=== PATIENT | female | born 1950 | race Two or more races ===

== ENCOUNTER → 2019-11-24 | Outpatient (CLI) | payer OTHER ==
[2019-11-24 10:37] LABS: Basophils # (auto) 0.1 uL; Basophils % (auto) 1.2 % (0.0-2.0); Eosinophils # (auto) 0.1 uL; Eosinophils % (auto) 1.3 % (0.0-7.0); Hematocrit 48.5 % (36.0-46.0); Hemoglobin 16.8 g/dL (12.2-16.2); Lymphocytes # (auto) 1.5 uL; Lymphocytes % (auto) 29.5 % (10.0-50.0); Mean Corpuscular Hemoglobin 32.1 pg (28.0-32.0); Mean Corpuscular Hgb Conc. 34.8 g/dL (32.0-36.0); Mean Corpuscular Volume 92.4 fL (80.0-100.0); Monocytes # (auto) 0.5 uL; Monocytes % (auto) 10.1 % (0.0-12.0); Neutrophils % (auto) 57.9 % (37.0-80.0); Platelet Count (auto) 202 10^3/uL (140-450); Red Blood Cells 5.24 10^6/uL (4.0-5.20); Red Cell Distribution Width 13.1 % (11.8-14.3); White Blood Cell 5.1 10^3/uL (4.4-10.8)
[2019-11-24 10:45] LABS: Urine Bacteria MOD /hpf (None Seen); Urine Blood Negative /uL (Negative); Urine Mucus FEW (None Seen); Urine Specific Gravity 1.019 (1.001-1.035); Urine WBC 12 /hpf (0 - 5)
[2019-11-24 11:26] LABS: Albumin 4.3 g/dL (3.4-5.0); Calcium 9.3 mg/dL (8.5-10.1); Potassium 3.7 mmol/L (3.5-5.1)
[2019-11-24 11:30] LABS: BUN/Creatinine Ratio 13.3; Bilirubin, Total 0.8 mg/dL (0.2-1.0); Total Protein 8.4 g/dL (6.4-8.2)
== END | disposition home or self-care (01) ==
LOC: LAB 10:17
PROVIDERS: ATTEND Internal Medicine
DX: J44.9 Chronic obstructive pulmonary disease, unspecified (principal); R53.83 Other fatigue; J40 Bronchitis, not specified as acute or chronic; R94.5 Abnormal results of liver function studies
CPT/HCPCS: 36415; 80053; 80061; 81001; 82785; 83520; 84439; 84443; 85025; 85652; 86256

== ENCOUNTER → 2020-03-27 | Outpatient (CLI) | payer OTHER | END | disposition home or self-care (01) | LOC: LAB 14:36 | PROVIDERS: ATTEND Internal Medicine | DX: R91.8 Other nonspecific abnormal finding of lung field (principal) | CPT/HCPCS: 36415; 82565; 84520 ==

== ENCOUNTER → 2020-07-25 | Outpatient (CLI) | payer OTHER | END | disposition home or self-care (01) | LOC: LAB 12:21 | PROVIDERS: ATTEND Internal Medicine Pulmonary Disease | DX: J47.9 Bronchiectasis, uncomplicated (principal); R91.8 Other nonspecific abnormal finding of lung field | CPT/HCPCS: 87070; 87077; 87186; 87205 ==

== ENCOUNTER → 2020-08-22 | Outpatient (CLI) | payer OTHER ==
[2020-08-22 13:05] LABS: Basophils # (auto) 0.1 10 ^3/uL (0-0.2); Basophils % (auto) 0.8 % (0.0-2.0); Eosinophils # (auto) 0 10 ^3/uL (0-0.8); Eosinophils % (auto) 0.5 % (0.0-7.0); Hematocrit 46.2 % (36.0-46.0); Hemoglobin 15.7 g/dL (12.2-16.2); Lymphocytes # (auto) 2.8 10 ^3/uL (0.4-5.4); Lymphocytes % (auto) 33.2 % (10.0-50.0); Mean Corpuscular Hemoglobin 31.4 pg (28.0-32.0); Mean Corpuscular Hgb Conc. 33.9 g/dL (32.0-36.0); Mean Corpuscular Volume 92.5 fL (80.0-100.0); Monocytes # (auto) 0.7 10 ^3/uL (0-1.3); Monocytes % (auto) 8.4 % (0.0-12.0); Neutrophils # (auto) 4.8 10 ^3/uL (1.6-8.6); Neutrophils % (auto) 57.1 % (37.0-80.0); Nucleated Red Blood Cells % 0.1 %; Platelet Count (auto) 247 10^3/uL (140-450); Red Blood Cells 4.99 10^6/uL (4.0-5.20); Red Cell Distribution Width 13.4 % (11.8-14.3); White Blood Cell 8.4 10^3/uL (4.4-10.8)
== END | disposition home or self-care (01) ==
LOC: LAB 12:51
PROVIDERS: ATTEND Internal Medicine
DX: S61.451A Open bite of right hand, initial encounter (principal); W54.0XXA Bitten by dog, initial encounter; Y93.89 Activity, other specified; Y92.89 Other specified places as the place of occurrence of the external cause; Y99.8 Other external cause status
CPT/HCPCS: 36415; 85025; 85652; 87205

== ENCOUNTER → 2020-08-22 | Outpatient (CLI) | payer OTHER ==
[~2020-08-22] MED LIST: ALBUTEROL SULF 2.5 MG/0.5ML(0.5%) NEB SOLN ONE
== END | disposition home or self-care (01) ==
LOC: RT 11:47
PROVIDERS: ATTEND Internal Medicine Pulmonary Disease
DX: J47.9 Bronchiectasis, uncomplicated (principal)
CPT/HCPCS: 94060; 94727; 94729

== ENCOUNTER → 2021-11-13 | Outpatient (CLI) | payer OTHER | END | disposition home or self-care (01) | LOC: LAB 15:48 | PROVIDERS: ATTEND Internal Medicine | DX: Z12.11 Encounter for screening for malignant neoplasm of colon (principal) | CPT/HCPCS: 82270 ==

== ENCOUNTER → 2022-04-30 | Outpatient (CLI) | payer OTHER | END | disposition home or self-care (01) | LOC: LAB 12:03 | PROVIDERS: ATTEND Internal Medicine Pulmonary Disease | DX: J40 Bronchitis, not specified as acute or chronic (principal) | CPT/HCPCS: 87070; 87205 ==

== ENCOUNTER 2023-01-09 10:37 | Emergency (ER) | payer OTHER ==
[~2023-01-09] VITALS: Ht 157.5 cm; Wt 62.0 kg
[2023-01-09] MEDS ORDERED: methylPREDNISolone SOD SUCC 125 MG/2 ML VL IV ONE (11:30)
[2023-01-09] MEDS: ALBUTEROL MEDNEB 2.5 mg/3ml NEB ONE ×2 (11:33→12:14)
[2023-01-09 12:08] LABS: Basophils # (auto) 0 10 ^3/uL (0-0.2); Basophils % (auto) 0.2 % (0.0-2.0); Eosinophils # (auto) 0 10 ^3/uL (0-0.8); Eosinophils % (auto) 0.3 % (0.0-7.0); Hematocrit 42.8 % (36.0-46.0); Hemoglobin 14.2 g/dL (12.2-16.2); Lymphocytes # (auto) 0.8 10 ^3/uL (0.4-5.4); Lymphocytes % (auto) 4.9 % (10.0-50.0); Mean Corpuscular Hemoglobin 30.4 pg (28.0-32.0); Mean Corpuscular Hgb Conc. 33.1 g/dL (32.0-36.0); Mean Corpuscular Volume 91.6 fL (80.0-100.0); Monocytes # (auto) 1.3 10 ^3/uL (0-1.3); Monocytes % (auto) 8.5 % (0.0-12.0); Neutrophils # (auto) 13.6 10 ^3/uL (1.6-8.6); Neutrophils % (auto) 86.1 % (37.0-80.0); Red Blood Cells 4.67 10^6/uL (4.0-5.20); Red Cell Distribution Width 13.2 % (11.8-14.3); White Blood Cell 15.8 10^3/uL (4.4-10.8)
[2023-01-09] MEDS: IPRATROPIUM BROM 0.5 MG/2.5ML INH SOL NEB ONE ×2 (12:14→13:06)
[2023-01-09] MEDS: ALBUTEROL SULF 2.5 MG/0.5ML(0.5%) NEB SOLN NEB ONE ×2 (12:14→13:06)
[2023-01-09 12:20] LABS: Albumin 3.3 g/dL (3.4-5.0); Calcium 8.5 mg/dL (8.5-10.1); Magnesium 2.6 mg/dL (1.6-2.6); Potassium 4.2 mmol/L (3.5-5.1)
[2023-01-09 12:26] LABS: BUN/Creatinine Ratio 14.5; Total Protein 7.7 g/dL (6.4-8.2)
[2023-01-09] MEDS ORDERED: IOHEXOL 350 MG/ML 100ML IJ ONE (15:13)
[2023-01-09] MEDS ORDERED: AZIT250T8 PO (17:55)
[2023-01-09 18:04] VITALS: BP 132/80
== END 2023-01-09 18:08 | disposition home or self-care (01) ==
LOC: ER 10:37
DX: R42 Dizziness and giddiness (principal); J40 Bronchitis, not specified as acute or chronic; R91.1 Solitary pulmonary nodule; R78.9 Finding of unspecified substance, not normally found in blood; Z20.822 Contact with and (suspected) exposure to COVID-19
CPT/HCPCS: 36415; 71045; 71275; 80053; 83605; 83735; 84484; 85025; 85379; 87426; 93005; 94640; 96374; 99285; J2930; J7644; Q9967

== ENCOUNTER → 2023-01-14 | Outpatient (CLI) | payer OTHER ==
[~2023-01-14] MED LIST changes: -ALBUTEROL SULF 2.5 MG/0.5ML(0.5%) NEB SOLN ONE; +AZIT250T8 PO
[2023-01-14 13:53] LABS: Basophils # (auto) 0 10 ^3/uL (0-0.2); Basophils % (auto) 0.1 % (0.0-2.0); Eosinophils # (auto) 0.1 10 ^3/uL (0-0.8); Hematocrit 45.8 % (36.0-46.0); Hemoglobin 15.3 g/dL (12.2-16.2); Lymphocytes # (auto) 2.4 10 ^3/uL (0.4-5.4); Lymphocytes % (auto) 22.6 % (10.0-50.0); Mean Corpuscular Hemoglobin 30.4 pg (28.0-32.0); Mean Corpuscular Hgb Conc. 33.3 g/dL (32.0-36.0); Mean Corpuscular Volume 91.2 fL (80.0-100.0); Monocytes # (auto) 0.9 10 ^3/uL (0-1.3); Neutrophils % (auto) 67.3 % (37.0-80.0); Nucleated Red Blood Cells % 0.1 %; Red Blood Cells 5.02 10^6/uL (4.0-5.20); Red Cell Distribution Width 13.1 % (11.8-14.3); White Blood Cell 10.4 10^3/uL (4.4-10.8)
== END | disposition home or self-care (01) ==
LOC: LAB 13:18
PROVIDERS: ATTEND Internal Medicine
DX: J40 Bronchitis, not specified as acute or chronic (principal)
CPT/HCPCS: 36415; 82785; 85025

== ENCOUNTER → 2023-08-17 | Outpatient (CLI) | payer OTHER ==
[~2023-08-17] MED LIST changes: +AZIT-81 PO; -AZIT250T8 PO
[2023-08-17 10:41] LABS: Basophils # (auto) 0.1 10 ^3/uL (0-0.2); Basophils % (auto) 0.8 % (0.0-2.0); Eosinophils # (auto) 0.1 10 ^3/uL (0-0.8); Eosinophils % (auto) 0.9 % (0.0-7.0); Hematocrit 46.7 % (36.0-46.0); Hemoglobin 15.1 g/dL (12.2-16.2); Lymphocytes # (auto) 1.7 10 ^3/uL (0.4-5.4); Lymphocytes % (auto) 24.1 % (10.0-50.0); Mean Corpuscular Hemoglobin 28.9 pg (28.0-32.0); Mean Corpuscular Hgb Conc. 32.4 g/dL (32.0-36.0); Mean Corpuscular Volume 89.3 fL (80.0-100.0); Monocytes # (auto) 0.6 10 ^3/uL (0-1.3); Monocytes % (auto) 8.9 % (0.0-12.0); Neutrophils # (auto) 4.5 10 ^3/uL (1.6-8.6); Neutrophils % (auto) 65.3 % (37.0-80.0); Nucleated Red Blood Cells % 0.1 %; Red Blood Cells 5.23 10^6/uL (4.0-5.20); Red Cell Distribution Width 14.2 % (11.8-14.3); White Blood Cell 6.9 10^3/uL (4.4-10.8)
[2023-08-17 10:52] LABS: INR 1.06 (0.9-1.15); Prothrombin Time 11.1 sec (9.3-11.8)
[2023-08-17 11:35] LABS: Erythrocyte Sedimentation Rate 22 mm/hr (0-20)
[2023-08-17 11:52] LABS: % Iron Saturation 27.1 % (15-50); Alanine Aminotransferase 21 U/L (7-40); Albumin 4.7 g/dL (3.2-4.8); Alkaline Phosphatase 87 U/L (46-116); Aspartate Aminotransferase 32 U/L (13-40); BUN/Creatinine Ratio 10.9 (10.0-20.0); Blood Urea Nitrogen 10 mg/dL (9-23); Calcium 9.5 mg/dL (8.5-10.1); Carbon Dioxide 30 mmol/L (20-30); Cholesterol 141 mg/dL (< 200); Glucose 97 mg/dL (74-106); HDL Cholesterol 49 mg/dL (40-59); LDL Cholesterol 85 mg/dL (< 100); Triglycerides 112 mg/dL (< 150)
[2023-08-17 11:53] LABS: Bilirubin, Total 0.6 mg/dL (0.2-1.0); Total Protein 8.1 g/dL (5.7-8.2)
[2023-08-17 12:42] LABS: Anion Gap 5 (5-15); Chloride 105 mmol/L (98-107); Potassium 4.5 mmol/L (3.5-5.1); Sodium 140 mmol/L (136-145)
== END | disposition home or self-care (01) ==
LOC: LAB 09:57
PROVIDERS: ATTEND Internal Medicine
DX: Z12.11 Encounter for screening for malignant neoplasm of colon (principal); K70.30 Alcoholic cirrhosis of liver without ascites; I10 Essential (primary) hypertension
CPT/HCPCS: 36415; 80053; 80061; 82270; 83540; 83550; 84439; 84443; 85025; 85610; 85652; 86705; 86706; 86708; 86709; 86803; 87340

== ENCOUNTER 2024-01-21 09:00 | Inpatient (IN) | payer OTHER ==
[~2024-01-21] VITALS: Ht 157.5 cm; Wt 60.8 kg
[2024-01-21] MEDS: ALBUTEROL SULF 2.5 MG/0.5ML(0.5%) NEB SOLN HHN ONE (09:37)
[2024-01-21] MEDS: IPRATROPIUM BROM 0.5 MG/2.5ML INH SOL HHN ONE (09:37)
[2024-01-21 09:55] LABS: Basophils # (auto) 0 10 ^3/uL (0-0.2); Basophils % (auto) 0.1 % (0.0-2.0); Eosinophils # (auto) 0.1 10 ^3/uL (0-0.8); Eosinophils % (auto) 0.6 % (0.0-7.0); Hematocrit 44.7 % (36.0-46.0); Hemoglobin 14.7 g/dL (12.2-16.2); Lymphocytes # (auto) 0.7 10 ^3/uL (0.4-5.4); Lymphocytes % (auto) 3.2 % (10.0-50.0); Mean Corpuscular Hemoglobin 29.3 pg (28.0-32.0); Mean Corpuscular Hgb Conc. 32.8 g/dL (32.0-36.0); Mean Corpuscular Volume 89.2 fL (80.0-100.0); Monocytes # (auto) 0.9 10 ^3/uL (0-1.3); Monocytes % (auto) 4.1 % (0.0-12.0); Neutrophils # (auto) 20.9 10 ^3/uL (1.6-8.6); Nucleated Red Blood Cells % 0.1 %; Red Blood Cells 5.01 10^6/uL (4.0-5.20); Red Cell Distribution Width 13.9 % (11.8-14.3); White Blood Cell 22.7 10^3/uL (4.4-10.8)
[2024-01-21 10:01] LABS: Chloride 95 mmol/L (98-107); Sodium 129 mmol/L (136-145)
[2024-01-21] MEDS: methylPREDNISolone SOD SUCC 125 MG/2 ML VL IV ONE (10:01)
[2024-01-21 10:02] LABS: Anion Gap 7 (5-15); Calcium 9.3 mg/dL (8.5-10.1); Carbon Dioxide 27 mmol/L (20-30)
[2024-01-21] MEDS: AZITHROMYCIN 500MG/ 250ML 250 ML IV ONE (10:02)
[2024-01-21 10:07] LABS: BUN/Creatinine Ratio 19.4 (10.0-20.0); Blood Urea Nitrogen 19 mg/dL (9-23); Glucose 106 mg/dL (74-106)
[2024-01-21] MEDS: ALBUTEROL SULF 2.5 MG/0.5ML(0.5%) NEB SOLN NEB ONE ×2 (10:11→15:53)
[2024-01-21] MEDS ORDERED: HYDROcodone-ACET 5/325MG TAB PO PRN (10:30)
[2024-01-21] MEDS ORDERED: ONDANSETRON HCL 4 MG/2 ML VIAL IV PRN (10:30)
[2024-01-21 10:34] VITALS: PULSE 99; RESP 26; O2SAT 97
[2024-01-21] MEDS ORDERED: ALBUTEROL SULF 2.5 MG/0.5ML(0.5%) NEB SOLN NEB SCH (10:45)
[2024-01-21] MEDS ORDERED: IPRATROPIUM BROM 0.5 MG/2.5ML INH SOL NEB SCH (10:45)
[2024-01-21] MEDS: cefTRIAXone 1GM/50ML D5W 50 ML IV SCH (11:12)
[2024-01-21 11:34] LABS: Lactic Acid w/Reflex 2.2 mmol/L (0.4-2.0)
[2024-01-21] MEDS: SODIUM CHLORIDE 0.9% 500 ML IV ONE (11:43)
[2024-01-21 12:27] LABS: COVID19 ANTIGEN SOFIA FIA NEGATIVE (NEGATIVE); Rapid Influenza A Negative (Negative); Rapid Influenza B Negative (Negative)
[2024-01-21 13:03] LABS: Base Excess -6.5 mmol/L (-2.0-2.0)
[2024-01-21] MEDS: SODIUM CHLOR 0.9% PF (SALINE LOCK) 10ML VIAL/SYR IV SCH (14:11)
[2024-01-21] MEDS ORDERED: ACETYLCYSTEINE 10 %(100MG/ML) SOL 4ML NEB ONE (15:00)
[2024-01-21] MEDS: IPRATROPIUM BROM 0.5 MG/2.5ML INH SOL NEB ONE (15:53)
[2024-01-21] MEDS: IPRATROPIUM BROM 0.5 MG/2.5ML INH SOL NEB SCH (18:17)
[2024-01-21] MEDS: ALBUTEROL SULF 2.5 MG/0.5ML(0.5%) NEB SOLN NEB SCH (18:17)
[2024-01-21] MEDS: ACETYLCYSTEINE 10 %(100MG/ML) SOL 4ML NEB SCH (18:18)
[2024-01-21 18:19] VITALS: PULSE 94; RESP 32; O2SAT 96
[2024-01-21 18:32] VITALS: PULSE 102; RESP 32; O2SAT 98
[2024-01-21 19:45] VITALS: PULSE 100; RESP 24; O2SAT 96
[2024-01-21 21:14] VITALS: BP 125/72; PULSE 93; RESP 30; O2SAT 97
[2024-01-22] VITALS (9 sets, daily range): PULSE 91–104; RESP 21–38; O2SAT 89–98
[2024-01-22] MEDS: guaiFENesin-DM 100/10mg/5ml SYR PO PRN (01:13)
[2024-01-22 07:20] LABS: Base Excess -1.5 mmol/L (-2.0-2.0)
[2024-01-22] MEDS: methylPREDNISolone SOD SUCC 125 MG/2 ML VL IV ONE (10:43)
[2024-01-22] MEDS: AZITHROMYCIN 500MG/ 250ML 250 ML IV SCH (10:44)
[2024-01-22] MEDS ORDERED: ALBUTEROL SULF 2.5 MG/0.5ML(0.5%) NEB SOLN NEB PRN (10:45)
[2024-01-22] MEDS: SODIUM CHLORIDE 0.9% 1,000 ML IV SCH (10:45)
[2024-01-22] MEDS: methylPREDNISolone SOD SUCC 40 MG/ML VL IV SCH (12:00)
[2024-01-23] VITALS (12 sets, daily range): BP systolic 129–140; BP diastolic 75–76; PULSE 78–104; RESP 14–28; TEMP 97.9–98.2; O2SAT 92–100
[2024-01-23 06:09] LABS: Basophils # (auto) 0 10 ^3/uL (0-0.2); Eosinophils # (auto) 0 10 ^3/uL (0-0.8); Hematocrit 41.6 % (36.0-46.0); Hemoglobin 13.6 g/dL (12.2-16.2); Lymphocytes # (auto) 0.8 10 ^3/uL (0.4-5.4); Lymphocytes % (auto) 4.2 % (10.0-50.0); Mean Corpuscular Hemoglobin 29.3 pg (28.0-32.0); Mean Corpuscular Hgb Conc. 32.7 g/dL (32.0-36.0); Mean Corpuscular Volume 89.5 fL (80.0-100.0); Monocytes # (auto) 0.9 10 ^3/uL (0-1.3); Monocytes % (auto) 4.4 % (0.0-12.0); Neutrophils # (auto) 17.8 10 ^3/uL (1.6-8.6); Neutrophils % (auto) 91.4 % (37.0-80.0); Nucleated Red Blood Cells % 0.1 %; Red Blood Cells 4.65 10^6/uL (4.0-5.20); Red Cell Distribution Width 14.1 % (11.8-14.3); White Blood Cell 19.5 10^3/uL (4.4-10.8)
[2024-01-23 06:48] LABS: Alanine Aminotransferase 32 U/L (7-40); Alkaline Phosphatase 161 U/L (46-116); Anion Gap 8 (5-15); Aspartate Aminotransferase 52 U/L (13-40); BUN/Creatinine Ratio 24.2 (10.0-20.0); Blood Urea Nitrogen 15 mg/dL (9-23); Calcium 8.4 mg/dL (8.7-10.4); Carbon Dioxide 24 mmol/L (20-30); Chloride 104 mmol/L (98-107); Glucose 134 mg/dL (74-106); Potassium 4.3 mmol/L (3.5-5.1); Sodium 136 mmol/L (136-145)
[2024-01-23 06:49] LABS: Albumin 3.3 g/dL (3.2-4.8)
[2024-01-23 06:50] LABS: Bilirubin, Total 0.4 mg/dL (0.2-1.0); Total Protein 6.3 g/dL (5.7-8.2)
[2024-01-23] MEDS: ENOXAPARIN SOD 40 MG/0.4 ML SYRINGE SC SCH (09:31)
[2024-01-23] MEDS: LOSARTAN POTASSIUM 25 MG TAB PO SCH (10:44)
[2024-01-23] MEDS: SODIUM CHLORIDE 0.9% 1,000 ML IV SCH (11:54)
[2024-01-23] MEDS: IOHEXOL 350 MG/ML 100ML IJ ONE ×2 (12:59→15:45)
[2024-01-23 14:29] LABS: Urine Bacteria FEW /hpf (None Seen); Urine Blood Negative /uL (Negative); Urine Clarity Clear (Clear); Urine Color Yellow (Yellow); Urine Protein, UAD Negative (Negative); Urine Specific Gravity 1.019 (1.001-1.035); Urine Urobilinogen Normal (Negative); Urine WBC 2 /hpf (0 - 5)
[2024-01-23] MEDS: methylPREDNISolone SOD SUCC 40 MG/ML VL IV SCH (18:22)
[2024-01-24] VITALS (15 sets, daily range): BP systolic 135–157; BP diastolic 72–85; PULSE 73–101; RESP 17–28; TEMP 97.4–98.4; O2SAT 92–100
[2024-01-24 05:55] LABS: Hematocrit 39.8 % (36.0-46.0); Hemoglobin 13.1 g/dL (12.2-16.2); Mean Corpuscular Hemoglobin 29.1 pg (28.0-32.0); Mean Corpuscular Hgb Conc. 32.9 g/dL (32.0-36.0); Mean Corpuscular Volume 88.3 fL (80.0-100.0); Red Blood Cells 4.51 10^6/uL (4.0-5.20); Red Cell Distribution Width 14.4 % (11.8-14.3); White Blood Cell 17.2 10^3/uL (4.4-10.8)
[2024-01-24 06:12] LABS: Alanine Aminotransferase 40 U/L (7-40); Albumin 3.2 g/dL (3.2-4.8); Alkaline Phosphatase 140 U/L (46-116); Anion Gap 6 (5-15); Aspartate Aminotransferase 43 U/L (13-40); BUN/Creatinine Ratio 19.4 (10.0-20.0); Bilirubin, Total 0.4 mg/dL (0.2-1.0); Blood Urea Nitrogen 12 mg/dL (9-23); Calcium 8.6 mg/dL (8.5-10.1); Carbon Dioxide 27 mmol/L (20-30); Chloride 106 mmol/L (98-107); Glucose 152 mg/dL (74-106); Potassium 4.3 mmol/L (3.5-5.1); Sodium 139 mmol/L (136-145); Total Protein 6.1 g/dL (5.7-8.2)
[2024-01-24 06:34] LABS: Band Neutrophils % (manual) 0; Basophils % (manual) 0 (0.0-2.0); Blast Cells 0; Eosinophils % (manual) 0 (0-7); Metamyelocytes % 0; Myelocytes % 0; Promyelocytes % 0; Reactive Lymphocytes 0
[2024-01-24] MEDS: FAMOTIDINE 20 MG TAB PO ONE (10:39)
[2024-01-24] MEDS: FUROSEMIDE 20 MG/2 ML VIAL IV ONE (10:40)
[2024-01-24 10:41] LABS: Lymphocytes % (manual) 5 (10.0-50.0); Monocytes % (manual) 2 (0-12)
[2024-01-24 10:42] LABS: Platelet Estimate Adequate
[2024-01-24] MEDS: AZITHROMYCIN 250 MG TAB PO ONE (18:56)
[2024-01-24] MEDS: FUROSEMIDE 20 MG/2 ML VIAL IV SCH (19:00)
[2024-01-25] VITALS (19 sets, daily range): BP systolic 124–150; BP diastolic 73–84; PULSE 70–98; RESP 16–20; TEMP 97.8–98.3; O2SAT 91–100
[2024-01-25 06:25] LABS: Hematocrit 41.5 % (36.0-46.0); Hemoglobin 13.4 g/dL (12.2-16.2); Mean Corpuscular Hgb Conc. 32.4 g/dL (32.0-36.0); Mean Corpuscular Volume 89.6 fL (80.0-100.0); Red Blood Cells 4.63 10^6/uL (4.0-5.20); Red Cell Distribution Width 14.4 % (11.8-14.3); White Blood Cell 15.8 10^3/uL (4.4-10.8)
[2024-01-25 06:37] LABS: Chloride 103 mmol/L (98-107); Potassium 4.1 mmol/L (3.5-5.1); Sodium 137 mmol/L (136-145)
[2024-01-25 06:38] LABS: Anion Gap 4 (5-15); Calcium 8.1 mg/dL (8.7-10.4); Carbon Dioxide 30 mmol/L (20-30)
[2024-01-25 06:41] LABS: Band Neutrophils % (manual) 0; Basophils % (manual) 0 (0.0-2.0); Blast Cells 0; Eosinophils % (manual) 0 (0-7); Metamyelocytes % 0; Myelocytes % 0; Promyelocytes % 0; Reactive Lymphocytes 0
[2024-01-25 06:43] LABS: BUN/Creatinine Ratio 18.3 (10.0-20.0); Blood Urea Nitrogen 11 mg/dL (9-23); Glucose 160 mg/dL (74-106)
[2024-01-25 06:44] LABS: Magnesium 1.5 mg/dL (1.6-2.6)
[2024-01-25 07:52] LABS: Lymphocytes % (manual) 9 (10.0-50.0); Monocytes % (manual) 2 (0-12); Platelet Estimate Adequate
[2024-01-25] MEDS ORDERED: AZITHROMYCIN 250 MG TAB PO SCH (10:00)
[2024-01-25] MEDS: MAGNESIUM OXIDE 400 MG TAB PO SCH (11:03)
[2024-01-25] MEDS: AZITHROMYCIN 250 MG TAB PO SCH (11:04)
[2024-01-25] MEDS: FAMOTIDINE 20 MG TAB PO SCH (11:11)
[2024-01-25] MEDS: ACETAMINOPHEN 325 MG TAB PO PRN (22:31)
[2024-01-26] VITALS (12 sets, daily range): BP systolic 136–153; BP diastolic 58–92; PULSE 79–100; RESP 16–20; TEMP 97.7–98.6; O2SAT 92–99
[2024-01-26] MEDS ORDERED: FLUT250M2 INH (13:42)
[2024-01-26] MEDS ORDERED: ALB5IS NEB (13:42)
[2024-01-26] MEDS ORDERED: DOXY100C4 PO (13:42)
[2024-01-26] MEDS ORDERED: PRED20TA2 PO (13:42)
[2024-01-26] MEDS ORDERED: FURO1TAB33 PO (13:44)
== END 2024-01-26 16:40 | disposition home or self-care (01) | DRG 871 ==
LOC: ER 09:00 → TELE 10:30 → TELE-CENTR 01-23 15:57 → CENTRAL 01-25 03:40
PROVIDERS: ADMIT Internal Medicine; ATTEND Internal Medicine
DX: A41.9 Sepsis, unspecified organism (principal); I50.41 Acute combined systolic (congestive) and diastolic (congestive) heart failure; J15.69 Pneumonia due to other Gram-negative bacteria; J96.01 Acute respiratory failure with hypoxia; J44.1 Chronic obstructive pulmonary disease with (acute) exacerbation; E87.0 Hyperosmolality and hypernatremia; J44.0 Chronic obstructive pulmonary disease with (acute) lower respiratory infection; Z20.822 Contact with and (suspected) exposure to COVID-19; I11.0 Hypertensive heart disease with heart failure; R59.1 Generalized enlarged lymph nodes; Z83.3 Family history of diabetes mellitus; Z80.9 Family history of malignant neoplasm, unspecified; Z90.710 Acquired absence of both cervix and uterus
CPT/HCPCS: 36415; 36600; 71045; 71275; 80048; 80053; 81001; 82306; 82805; 83036; 83605; 83615; 83735; 83880; 85007; 85025; 85027; 85379; 87040; 87426; 87804; 93306; 93970; 94640; 94644; 97163; 99291; G0378

== ENCOUNTER → 2024-05-10 | Outpatient (CLI) | payer OTHER ==
[~2024-05-10] MED LIST changes: +ALB5IS NEB; -AZIT-81 PO; +DOXY100C4 PO; +FLUT250M2 INH; +FURO1TAB33 PO; +PRED20TA2 PO
== END | disposition home or self-care (01) ==
LOC: LAB 15:44
PROVIDERS: ATTEND Internal Medicine
DX: J18.9 Pneumonia, unspecified organism (principal)
CPT/HCPCS: 87070; 87205

== ENCOUNTER → 2024-09-26 | Outpatient (CLI) | payer OTHER ==
[2024-09-26 11:43] LABS: Basophils # (auto) 0.1 10 ^3/uL (0-0.2); Eosinophils # (auto) 0.1 10 ^3/uL (0-0.8); Hemoglobin 13.9 g/dL (12.2-16.2); Monocytes # (auto) 0.9 10 ^3/uL (0-1.3)
[2024-09-26 11:44] LABS: Basophils % (auto) 1.1 % (0.0-2.0); Eosinophils % (auto) 1.1 % (0.0-7.0); Hematocrit 41.7 % (36.0-46.0); Lymphocytes # (auto) 1.7 10 ^3/uL (0.4-5.4); Lymphocytes % (auto) 16.2 % (10.0-50.0); Mean Corpuscular Hemoglobin 30.1 pg (28.0-32.0); Mean Corpuscular Hgb Conc. 33.4 g/dL (32.0-36.0); Mean Corpuscular Volume 90.2 fL (80.0-100.0); Monocytes % (auto) 8.6 % (0.0-12.0); Neutrophils # (auto) 7.6 10 ^3/uL (1.6-8.6); Platelet Count (auto) 563 10^3/uL (140-450); Red Blood Cells 4.62 10^6/uL (4.0-5.20); Red Cell Distribution Width 14.2 % (11.8-14.3); White Blood Cell 10.4 10^3/uL (4.4-10.8)
[2024-09-26 11:59] LABS: INR 1.07 (0.9-1.15); Prothrombin Time 11.3 sec (9.3-11.8)
[2024-09-26 12:18] LABS: Erythrocyte Sedimentation Rate 56 mm/hr (0-20)
[2024-09-26 12:23] LABS: Alanine Aminotransferase 13 U/L (7-40); Alkaline Phosphatase 117 U/L (46-116); Anion Gap 9 (5-15); BUN/Creatinine Ratio 8.8 (10.0-20.0); Blood Urea Nitrogen 7 mg/dL (9-23); Calcium 9.9 mg/dL (8.7-10.4); Carbon Dioxide 26 mmol/L (20-31); Chloride 103 mmol/L (98-107); Glucose 113 mg/dL (74-106); LDL Cholesterol 54 mg/dL (< 100); Potassium 3.4 mmol/L (3.5-5.1); Sodium 138 mmol/L (136-145); Triglycerides 126 mg/dL (< 150)
[2024-09-26 12:24] LABS: Albumin 4.3 g/dL (3.2-4.8); Aspartate Aminotransferase 25 U/L (13-40); Bilirubin, Total 0.4 mg/dL (0.2-1.0); Cholesterol 116 mg/dL (< 200); HDL Cholesterol 46 mg/dL (40-59)
== END | disposition home or self-care (01) ==
LOC: LAB 11:23
PROVIDERS: ATTEND Internal Medicine
DX: I10 Essential (primary) hypertension (principal); K70.0 Alcoholic fatty liver; M81.0 Age-related osteoporosis without current pathological fracture
CPT/HCPCS: 36415; 80053; 80061; 82306; 83735; 84439; 84443; 85025; 85610; 85652

== ENCOUNTER → 2024-10-03 | Outpatient (CLI) | payer OTHER ==
[2024-10-03 16:09] LABS: Urine Bacteria None Seen /hpf (None Seen)
[2024-10-03 16:34] LABS: Urine Blood Negative /uL (Negative); Urine Clarity Clear (Clear); Urine Color Light-Yellow (Yellow); Urine Mucus FEW (None Seen); Urine Protein, UAD Negative (Negative); Urine Specific Gravity 1.023 (1.001-1.035); Urine Urobilinogen Normal (Negative); Urine WBC 1 /hpf (0 - 5); Urine pH 5.5 (5.0-9.0)
== END | disposition home or self-care (01) ==
LOC: LAB 15:37
PROVIDERS: ATTEND Internal Medicine
DX: I10 Essential (primary) hypertension (principal); K70.0 Alcoholic fatty liver
CPT/HCPCS: 81001

== ENCOUNTER → 2024-12-21 | Outpatient (CLI) | payer OTHER ==
[2024-12-21 13:44] LABS: Basophils # (auto) 0.1 10 ^3/uL (0-0.2); Neutrophils # (auto) 12.6 10 ^3/uL (1.6-8.6); White Blood Cell 15.3 10^3/uL (4.4-10.8)
[2024-12-21 13:48] LABS: Basophils % (auto) 0.5 % (0.0-2.0); Eosinophils # (auto) 0.1 10 ^3/uL (0-0.8); Eosinophils % (auto) 0.3 % (0.0-7.0); Hematocrit 39.6 % (36.0-46.0); Hemoglobin 12.9 g/dL (12.2-16.2); Lymphocytes # (auto) 1.6 10 ^3/uL (0.4-5.4); Lymphocytes % (auto) 10.5 % (10.0-50.0); Mean Corpuscular Hemoglobin 28.5 pg (28.0-32.0); Mean Corpuscular Hgb Conc. 32.6 g/dL (32.0-36.0); Mean Corpuscular Volume 87.4 fL (80.0-100.0); Monocytes # (auto) 0.9 10 ^3/uL (0-1.3); Monocytes % (auto) 6.1 % (0.0-12.0); Neutrophils % (auto) 82.6 % (37.0-80.0); Platelet Count (auto) 546 10^3/uL (140-450); Red Blood Cells 4.53 10^6/uL (4.0-5.20); Red Cell Distribution Width 14.3 % (11.8-14.3)
[2024-12-21 13:54] LABS: Albumin 4.1 g/dL (3.2-4.8); Alkaline Phosphatase 110 U/L (46-116); Anion Gap 7 (5-15); Aspartate Aminotransferase 18 U/L (13-40); BUN/Creatinine Ratio 9.7 (10.0-20.0); Bilirubin, Total 0.3 mg/dL (0.2-1.0); Calcium 9.7 mg/dL (8.7-10.4); Carbon Dioxide 26 mmol/L (20-31); Chloride 101 mmol/L (98-107); Glucose 144 mg/dL (74-106); Potassium 3.8 mmol/L (3.5-5.1); Sodium 134 mmol/L (136-145); Total Protein 7.6 g/dL (5.7-8.2)
[2024-12-21 13:55] LABS: Alanine Aminotransferase < 9 U/L (7-40); Blood Urea Nitrogen 9 mg/dL (9-23)
== END | disposition home or self-care (01) ==
LOC: LAB 13:18
PROVIDERS: ATTEND Internal Medicine
DX: D75.839 Thrombocytosis, unspecified (principal)
CPT/HCPCS: 36415; 80053; 83540; 85025

== ENCOUNTER 2025-02-14 14:02 | Inpatient (IN) | payer OTHER ==
[~2025-02-14] VITALS: Ht 157.5 cm; Wt 50.9 kg
--- NOTE | 2025-02-14 14:45 | ED.PDOC ---
SOB-HPI HPI Comments 74y F who presents to the ED for chief complaint of shortness of breath. Pt states she has been having cough, congestion, with associated greenish sputum for the past 2 days. Pt states she saw her PCP a few days ago and states she was told she has bronchitis and placed on antibiotics. Pt states she is continuing to have exacerbation of her symptoms despite being on medications. Pt in the ED, otherwise denies chest pain, fever, chills, headache, dizziness, or any associated symptoms. Pt otherwise denies any other symptoms at this time. Chief Complaint: Shortness of Breath Time Seen by MD: 14:42 Primary Care Provider: ROGER Reviewed notes: Nurses Notes, Medications, Allergies Information Source: Patient Mode of Arrival: Ambulatory Brought in by: spouse Severity: Moderate Timing: Hours Duration: Since onset Context: At Rest PE Risk Factors: None History of: Other (bronchitis) Prehospital treatment: Treatment (abx) Modifying Factors: Exertion Associated Signs and Symptoms: Cough If cough with SOB: Green Past Medical History PAST MEDICAL HISTORY: COPD, HTN Surgical History: Hysterectomy, Tubal Ligation CABLE INSTALLATION MANAGER History: No Pertinent CABLE INSTALLATION MANAGER History Family History Family History: Family hx of DM, Family hx of Cancer Social History Smoker: Non-Smoker Alcohol: Occasionally Drugs: Denies Drug Use Lives In: Home Constitutional: denies: chills, diaphoresis, fatigue, fever, malaise, sweats, weakness, others EENTM: reports: nose congestion; denies: blurred vision, double vision, ear bleeding, ear discharge, ear drainage, ear pain, ear ringing, eye pain, eye redness, hearing loss, mouth pain, mouth swelling, nasal discharge, nose bleeding, nose pain, photophobia, tearing, throat pain, throat swelling, voice changes, others Respiratory: reports: cough, shortness of breath; denies: hemoptysis, ortho pnea, SOB at rest, SOB with excertion, stridor, wheezing, others Cardiovascular: denies: chest pain, dizzy spells, diaphoresis, Dyspnea on exertion, edema, irregular heart beat, left arm pain, lightheadedness, palpitations, PND, syncope, others Gastrointestinal: denies: abdomen distended, abdominal pain, blood streaked bowels, constipated, diarrhea, dysphagia, difficulty swallowing, hematemesis, melena, nausea, poor appetite, poor fluid intake, rectal bleeding, rectal pain, vomiting, others Genitourinary: denies: abnormal vagina bleeding, burning, dyspareunia, dysuria, flank pain, frequency, hematuria, incontinence, pain, , vagina discharge, urgency, others Neurological: denies: dizziness, fainting, headache, left sided numbness, left sided weakness, numbness, paresthesia, pre-existing deficit, right sided numbness, right sided weakness, seizure, speech problems, tingling, tremors, weakness, others Musculoskeletal: denies: back pain, gout, joint pain, joint swelling, muscle pain, muscle stiffness, neck pain, others Integumetry: denies: bruises, change in color, change in hair/nails, dryness, laceration, lesions, lumps, rash, wounds, others Allergic/Immunocompromised: denies: Difficulty Healing, Frequent Infections, Hives, Itching, others Hematologic/Lymphatic: denies: anemia, blood clots, easy bleeding, easy bruising, swollen glands, others Endocrine: denies: excessive hunger, excessive sweating, excessive thirst, excessive urination, flushing, intolerance to cold, intolerance to heat, unexplained weight gain, unexplained weight loss, others Psychiatric: denies: anxiety, bipolar disorder, depression, hopeless, panic disorder, schizophrenia, sleepless, suicidal, others All Other Systems: Reviewed and Negative Physical Exam General Appearance: Moderate Distress HEENT: Normal ENT Inspection, Pharynx Normal, TMs Normal Neck: Full Range of Motion, Non-Tender, Normal, Normal Inspection Respiratory: Chest Non-Tender, Decreased Breath Sounds, No Accessory Muscle Use, Respiratory Distress, Rhonchi, Wheezing Cardiovascular: No Edema, No JVD, No Murmur, No Gallop, Normal Peripheral Pulses, Regular Rate/Rhythm Breast Exam: Deferred Gastrointestinal: No Organomegaly, Non Tender, No Pulsatile Mass, Normal Bowel Sounds, Soft Genitalia: Deferred Pelvic: Deferred Rectal: Deferred Extremities: No calf tenderness, Normal capillary refill, Normal inspection, Normal range of motion, Non-tender, No pedal edema Musculoskeletal : Apperance: Normal Neurologic: Alert, sewing machine mechanic II-XII nml as Tested, No Motor Deficits, Normal Affect, Normal Mood, No Sensory Deficits Cerebellar Function: Normal Reflexes: Normal Skin: Dry, Normal Color, Warm Lymphatic: No Adenopathy EKG EKG : Pulse Rate (adult): 120 [place]: Normal Block: None ST: Nonsp Was a procedure done? Was a procedure done?: No Differential Dx Differential Diagnosis: Bronchitis, COPD, Pneumonia, Respiratory Distress, Pharyngitis, URI Comments Influenza A and B, COVID X-Ray, Labs, Meds, VS Vital Signs Date Time Temp Pulse Resp B/P (MAP) Pulse Ox O2 Delivery O2 Flow Rate FiO2 02/14/25 17:01 120 02/14/25 15:20 22 94 Nasal Cannula* 2 28 02/14/25 14:20 98.4 124 8 125/95 (105) 85 98.4 Lab Test 02/14/25 14:36 Range/Units White Blood Count 28.5 H 4.4-10.8 10^3/uL Red Blood Count 4.83 4.0-5.20 10^6/uL Hemoglobin 13.0 12.2-16.2 g/dL Hematocrit 40.0 36.0-46.0 % Mean Corpuscular Volume 82.9 80.0-100.0 fL Mean Corpuscular Hemoglobin 26.9 L 28.0-32.0 pg Mean Corpuscular Hemoglobin Concent 32.4 32.0-36.0 g/dL Red Cell Distribution Width 15.1 H 11.8-14.3 % Platelet Count 602 H 140-450 10^3/uL Mean Platelet Volume 8.0 6.9-10.8 fL Neutrophils (%) (Auto) 91.5 H 37.0-80.0 % Lymphocytes (%) (Auto) 3.8 L 10.0-50.0 % Monocytes (%) (Auto) 4.4 0.0-12.0 % Eosinophils (%) (Auto) 0.1 0.0-7.0 % Basophils (%) (Auto) 0.2 0.0-2.0 % Neutrophils # (Auto) 26.1 H 1.6-8.6 10 ^3/uL Lymphocytes # (Auto) 1.1 0.4-5.4 10 ^3/uL Monocytes # (Auto) 1.2 0-1.3 10 ^3/uL Eosinophils # (Auto) 0 0-0.8 10 ^3/uL Basophils # (Auto) 0.1 0-0.2 10 ^3/uL Nucleated Red Blood Cells 0.0 % Sodium Level 134 L 136-145 mmol/L Potassium Level 4.4 3.5-5.1 mmol/L Chloride Level 100 98-107 mmol/L Carbon Dioxide Level 25 20-31 mmol/L Anion Gap 9 5-15 Blood Urea Nitrogen 11 9-23 mg/dL Creatinine 0.79 0.550-1.02 mg/dL Glomerular Filtration Rate Calc 77 >90 mL/min BUN/Creatinine Ratio 13.9 10.0-20.0 Serum Glucose 109 H 74-106 mg/dL Calcium Level 9.9 8.7-10.4 mg/dL B-Type Natriuretic Peptide 71.03 0-100 pg/mL Current Medications Medications (Trade) Dose Ordered Sig/Benito Route Start Time Stop Time Status Last Admin Methylprednisolone Sodium Succinate (Solu Medrol) 125 mg ONCE ONCE IV 02/14/25 14:30 02/14/25 14:31 DC 02/14/25 16:23 Ipratropium [place] (Atrovent Medneb) 1 mg ONCE ONCE HHN 02/14/25 14:30 02/14/25 14:31 DC 02/14/25 15:20 Albuterol (Ventolin Medneb) 10 mg ONCE ONCE HHN 02/14/25 14:30 02/14/25 14:31 DC 02/14/25 15:20 CHEST RADIOGRAPH IMPRESSION: Chronic fibrotic changes with probable superimposed multifocal airspace disease. The patient was given Solu-Medrol 125 mg IV push The patient was started on a continuous breathing treatment of albuterol and Atrovent. The BNP is within normal limits The CBC shows an elevated white blood cell count of 28.5 The rest of the CBC and chemistry panel are within normal limits The patient's COVID test and influenza test are pending The patient was being admitted at this time. Images Reviewed?: Images reviewed and evaluated by me Time of 1ST Reevaluation: 15:15 Reevaluation 1ST: Unchanged Patient Education/Counseling: Diagnosis, Treatment, Prognosis Family Education/Counseling: Diagnosis, Treatment, Prognosis Additional Information -Reviewed patient's previous visit(s): - The following tests were ordered, and results were reviewed by me: cbc, bnp, chest x-ray, bmp, covid, influenza a and b - Additional information was gathered from interviewing the following independent Historian: patient - I reviewed and agreed with the following test results read by other provider: radiologist - I discussed treatments and results with medical personnel and: patient Comprehensive systems review obtained and negative except for what is stated in the HPI. Departure 1 Departure Time of Disposition: 17:11 Impression: Primary Impression: Acute respiratory failure Qualified Codes: J96.00 - Acute respiratory failure, unspecified whether with hypoxia or hypercapnia Disposition: ADMITTED INPATIENT Admit to: Med Surg Condition: Fair Critical Care Note Critical Care Time?: No Stability Stability form required: No Heart Score Heart Score: Heart Score Response (Comments) Value History Slightly Suspicious 0 EKG Repolarization Disturb 1 Age >65 2 Risk Factors 1 or 2 risk factors 1 Troponin N/A 0 Total 4 I personally scribed for ROBI ASTORGA MD ([email or web address]) on 02/14/25 at 14:45. Electronically submitted by Jessica Buckner ([email or web address]). I personally scribed for ROBI ASTORGA MD ([email or web address]) on 02/14/25 at 16:42. Electronically submitted by Jessica OTOOLE). ROBI ASTORGA MD Feb 14, 2025 14:45
[2025-02-14 14:59] LABS: Eosinophils # (auto) 0 10 ^3/uL (0-0.8); Lymphocytes # (auto) 1.1 10 ^3/uL (0.4-5.4); Monocytes # (auto) 1.2 10 ^3/uL (0-1.3)
[2025-02-14 15:03] LABS: Basophils # (auto) 0.1 10 ^3/uL (0-0.2); Basophils % (auto) 0.2 % (0.0-2.0); Eosinophils % (auto) 0.1 % (0.0-7.0); Lymphocytes % (auto) 3.8 % (10.0-50.0); Mean Corpuscular Hemoglobin 26.9 pg (28.0-32.0); Mean Corpuscular Hgb Conc. 32.4 g/dL (32.0-36.0); Mean Corpuscular Volume 82.9 fL (80.0-100.0); Monocytes % (auto) 4.4 % (0.0-12.0); Neutrophils # (auto) 26.1 10 ^3/uL (1.6-8.6); Neutrophils % (auto) 91.5 % (37.0-80.0); Platelet Count (auto) 602 10^3/uL (140-450); Red Blood Cells 4.83 10^6/uL (4.0-5.20); Red Cell Distribution Width 15.1 % (11.8-14.3); White Blood Cell 28.5 10^3/uL (4.4-10.8)
[2025-02-14 15:08] LABS: Chloride 100 mmol/L (98-107); Potassium 4.4 mmol/L (3.5-5.1)
--- NOTE | 2025-02-14 15:08 | DVH ---
CHEST RADIOGRAPH Indication: sob Technique: Frontal and lateral view of the chest was obtained Comparison: None FINDINGS: Lines and Tubes: None Lungs: Chronic fibrotic changes with probable superimposed multifocal airspace disease. Pleura: No effusion. No pneumothorax. Cardiomediastinal contours: Unremarkable Bones: Unremarkable IMPRESSION: Chronic fibrotic changes with probable superimposed multifocal airspace disease.
[2025-02-14 15:09] LABS: Anion Gap 9 (5-15); Calcium 9.9 mg/dL (8.7-10.4); Carbon Dioxide 25 mmol/L (20-31)
[2025-02-14 15:15] LABS: BUN/Creatinine Ratio 13.9 (10.0-20.0); Blood Urea Nitrogen 11 mg/dL (9-23); Glucose 109 mg/dL (74-106); Sodium 134 mmol/L (136-145)
[2025-02-14] MEDS: IPRATROPIUM BROM 0.5 MG/2.5ML INH SOL HHN ONE (15:20)
[2025-02-14] MEDS: ALBUTEROL SULF 2.5 MG/0.5ML(0.5%) NEB SOLN HHN ONE (15:20)
[2025-02-14] MEDS: methylPREDNISolone SOD SUCC 125 MG/2 ML VL IV ONE (16:23)
[2025-02-14] MEDS: cefTRIAXone 1GM/50ML D5W 50 ML IV ONE (17:00)
[2025-02-14] MEDS ORDERED: ONDANSETRON HCL 4 MG/2 ML VIAL IV PRN (19:15)
[2025-02-14 19:51] LABS: COVID19 ANTIGEN SOFIA FIA NEGATIVE (NEGATIVE); Rapid Influenza A Negative (Negative); Rapid Influenza B Negative (Negative)
[2025-02-14 20:45] VITALS: O2SAT 96
[2025-02-14 21:05] VITALS: BP 113/71; PULSE 103; RESP 18; TEMP 98.2; O2SAT 96
[2025-02-14 21:44] VITALS: BP 112/65; PULSE 95; RESP 17; TEMP 98; O2SAT 95; O2SAT 98
--- NOTE | 2025-02-14 22:15 | DVHHP2 ---
History of Present Illness Reason for Visit: Shortness for breath History of Present Illness 74 year old female presents for evaluation of shortness for breath. Patient was seen by her primary care provider who advised her to present to the emergency department to rule out possible pneumonia. Patient has been coughing over the past three days with yellow sputum and shortness for breath. She also reports intermittent chills. Denies chest pain or palpitations. No other acute complaints reported. Past Medical History Hypertension and COPD Past Surgical History Tubal ligation and hysterectomy Family History Noncontributory Smoke: No ALCOHOL: occassional Drugs: None Lives: with Family Review of Systems Review of Systems Review of systems are currently negative otherwise addressed in HPI. Allergies: Coded Allergies: NO KNOWN ALLERGIES (Unverified , 01/21/24) Medications Current Medications Medications Dose Ordered Sig/Benito Route Start Time Stop Time Status Last Admin Dose Admin Albuterol 2.5 mg Q6HPRN PRN NEB 02/14/25 19:15 Ipratropium [place] 0.5 mg Q6HPRN PRN NEB 02/14/25 19:15 Ceftriaxone Sodium 50 ml @ 100 mls/hr DAILY@09 IV 02/15/25 09:00 Azithromycin 250 ml @ 125 mls/hr DAILY IV 02/15/25 10:00 Methylprednisolone Sodium Succinate 40 mg BID IV 02/14/25 22:00 Ondansetron HCl 4 mg Q4HP PRN IV 02/14/25 19:15 Enoxaparin Sodium 40 mg DAILY SC 02/15/25 10:00 Acetaminophen 650 mg Q6HP PRN PO 02/14/25 19:15 Exam Vital Signs Vital Signs Date Time Temp Pulse Resp B/P (MAP) Pulse Ox O2 Delivery O2 Flow Rate FiO2 02/14/25 21:28 97.8 105 20 127/86 (100) 96 97.8 02/14/25 21:19 Nasal Cannula* 3 32 Exam Gen: 74-year-old female in mild distress Skin: Warm, dry, normal color and texture, no rash. HEENT: Normocephalic atraumatic, mucous membranes moist and pink. Neck: Cervical and supraclavicular nodes normal without enlargement, trachea is midline, thyroid gland is normal without masses. Pulmonary: Bilateral rhonchi Cardiac: Regular rate and rhythm. No murmur Abdomen: Soft, nontender, nondistended, bowel sounds present all 4 quadrants, no guarding, no rigidity, no organomegaly. Extremities: No cyanosis, clubbing, no edema Neuro: Cranial nerves II through XII grossly intact, normal affect and speech, no focal motor deficits. Labs/Xrays ORDERING PHYSICIAN: ROBI ASTORGA MD PROCEDURE(s): CXR2 - CHEST TWO VIEWS ROUTINE REASON: sob ORDER NUMBER(s): [id number], ACCESSION NUMBER(s): [id number] CHEST RADIOGRAPH Indication: sob Technique: Frontal and lateral view of the chest was obtained Comparison: None FINDINGS: Lines and Tubes: None Lungs: Chronic fibrotic changes with probable superimposed multifocal airspace disease. Pleura: No effusion. No pneumothorax. Cardiomediastinal contours: Unremarkable Bones: Unremarkable IMPRESSION: Chronic fibrotic changes with probable superimposed multifocal airspace disease. Labs Test 02/14/25 18:20 02/14/25 14:36 Range/Units Influenza Type A Antigen Negative Negative Influenza Type B Antigen Negative Negative SARS-CoV-2 Antigen (Rapid) Negative NEGATIVE White Blood Count 28.5 H 4.4-10.8 10^3/uL Red Blood Count 4.83 4.0-5.20 10^6/uL Hemoglobin 13.0 12.2-16.2 g/dL Hematocrit 40.0 36.0-46.0 % Mean Corpuscular Volume 82.9 80.0-100.0 fL Mean Corpuscular Hemoglobin 26.9 L 28.0-32.0 pg Mean Corpuscular Hemoglobin Concent 32.4 32.0-36.0 g/dL Red Cell Distribution Width 15.1 H 11.8-14.3 % Platelet Count 602 H 140-450 10^3/uL Mean Platelet Volume 8.0 6.9-10.8 fL Neutrophils (%) (Auto) 91.5 H 37.0-80.0 % Lymphocytes (%) (Auto) 3.8 L 10.0-50.0 % Monocytes (%) (Auto) 4.4 0.0-12.0 % Eosinophils (%) (Auto) 0.1 0.0-7.0 % Basophils (%) (Auto) 0.2 0.0-2.0 % Neutrophils # (Auto) 26.1 H 1.6-8.6 10 ^3/uL Lymphocytes # (Auto) 1.1 0.4-5.4 10 ^3/uL Monocytes # (Auto) 1.2 0-1.3 10 ^3/uL Eosinophils # (Auto) 0 0-0.8 10 ^3/uL Basophils # (Auto) 0.1 0-0.2 10 ^3/uL Nucleated Red Blood Cells 0.0 % Sodium Level 134 L 136-145 mmol/L Potassium Level 4.4 3.5-5.1 mmol/L Chloride Level 100 98-107 mmol/L Carbon Dioxide Level 25 20-31 mmol/L Anion Gap 9 5-15 Blood Urea Nitrogen 11 9-23 mg/dL Creatinine 0.79 0.550-1.02 mg/dL Glomerular Filtration Rate Calc 77 >90 mL/min BUN/Creatinine Ratio 13.9 10.0-20.0 Serum Glucose 109 H 74-106 mg/dL Calcium Level 9.9 8.7-10.4 mg/dL B-Type Natriuretic Peptide 71.03 0-100 pg/mL Assessment/Plan Assessment/Plan Assessment Multifocal pneumonia Hypertension COPD Leukocytosis Plan Admit the patient to Med surge to the hospitalist Rocephin/azithromycin Med nebs Resume home medications Continue treatment per orders. Plan discussed with: Patient My Orders Orders - SHERWIN ALAS [facility] Procedure Category Date Status Time Blood Culture HERMAN 02/14/25 In Process 19:08 Albuterol Medneb PHA 02/14/25 In Process (Ventolin Medneb) 19:15 Ipratropium Medneb PHA 02/14/25 In Process (Atrovent Medneb) 19:15 Ceftriaxone 1gm/50ml PHA 02/15/25 In Process D5w (Rocephin) 09:00 Azithromycin 500mg/ PHA 02/15/25 In Process 250ml (Zithromax 50 10:00 Methylprednisolone PHA 02/14/25 In Process Sod Succ (Solu Medrol 22:00 Basic Metabolic Panel LAB 02/15/25 Verified 04:00 Admit ADMIT 02/14/25 Transmitted 19:08 Ondansetron Hcl PHA 02/14/25 In Process (Zofran) 19:15 Enoxaparin Sodium PHA 02/15/25 In Process (Lovenox) 10:00 Complete Blood Count LAB 02/15/25 Verified 04:00 Condition: Stable ANGELA 02/14/25 In Process 19:08 Acetaminophen Tablet PHA 02/14/25 In Process (Tylenol Tablet) 19:15 Bedrest With Bathroom ANGELA 02/14/25 In Process Privileg 19:08 Date of Service: Feb 14, 2025 Billing Provider: SHERWIN ALAS Common Visit Codes: [id number] INP/OBS CARE (HIGH) SHERWIN ALAS Feb 14, 2025 22:15
[2025-02-14] MEDS: methylPREDNISolone SOD SUCC 40 MG/ML VL IV SCH (22:32)
[2025-02-14] MEDS ORDERED: FLUT1AER3 IN (22:47)
[2025-02-15] VITALS (12 sets, daily range): BP systolic 101–110; BP diastolic 64–72; PULSE 92–115; RESP 18–20; TEMP 97.8–98.1; O2SAT 93–99
[2025-02-15 06:42] LABS: Hemoglobin 11.5 g/dL (12.2-16.2); Mean Corpuscular Hemoglobin 26.5 pg (28.0-32.0); Mean Corpuscular Hgb Conc. 31.7 g/dL (32.0-36.0); Mean Corpuscular Volume 83.7 fL (80.0-100.0); Red Cell Distribution Width 15.3 % (11.8-14.3)
[2025-02-15 06:45] LABS: Hematocrit 36.3 % (36.0-46.0); Platelet Count (auto) 519 10^3/uL (140-450); Red Blood Cells 4.34 10^6/uL (4.0-5.20); White Blood Cell 21.7 10^3/uL (4.4-10.8)
[2025-02-15 06:53] LABS: Chloride 102 mmol/L (98-107); Potassium 4.4 mmol/L (3.5-5.1)
[2025-02-15 06:54] LABS: Anion Gap 7 (5-15); Carbon Dioxide 24 mmol/L (20-31)
[2025-02-15 06:55] LABS: Calcium 9.9 mg/dL (8.7-10.4)
[2025-02-15 06:58] LABS: Band Neutrophils % (manual) 0; Basophils % (manual) 0 (0.0-2.0); Blast Cells 0; Eosinophils % (manual) 0 (0-7); Metamyelocytes % 0; Myelocytes % 0; Promyelocytes % 0; Reactive Lymphocytes 0
[2025-02-15 07:00] LABS: BUN/Creatinine Ratio 22.2 (10.0-20.0); Blood Urea Nitrogen 14 mg/dL (9-23)
[2025-02-15 07:04] LABS: Glucose 155 mg/dL (74-106); Sodium 133 mmol/L (136-145)
[2025-02-15 08:04] LABS: Lymphocytes % (manual) 5 (10.0-50.0); Monocytes % (manual) 2 (0-12)
[2025-02-15 08:05] LABS: Anisocytosis Slight; Hypochromia Slight; Platelet Estimate Increased
[2025-02-15] MEDS: cefTRIAXone 1GM/50ML D5W 50 ML IV SCH (10:41)
[2025-02-15] MEDS: ENOXAPARIN SOD 40 MG/0.4 ML SYRINGE SC SCH (10:42)
[2025-02-15] MEDS: AZITHROMYCIN 500MG/ 250ML 250 ML IV SCH (10:42)
[2025-02-15] MEDS: ALBUTEROL SULF 2.5 MG/0.5ML(0.5%) NEB SOLN NEB PRN (10:43)
[2025-02-15] MEDS: IPRATROPIUM BROM 0.5 MG/2.5ML INH SOL NEB PRN (10:43)
--- NOTE | 2025-02-15 11:08 | ECG ---
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
--- NOTE | 2025-02-15 18:26 | DVHPN2 ---
Subjective Seen and examined at bedside. On 2L oxygen will get CT CHEST. Changes from previous H/P or p: No Changes Objective Vitals Vital Signs Date Time Temp Pulse Resp B/P (MAP) Pulse Ox O2 Delivery O2 Flow Rate FiO2 02/15/25 17:27 98.0 92 18 101/66 (78) 96 98.0 02/15/25 10:43 Nasal Cannula* 2 28 Intake/Output Intake and Output 02/15/25 07:00 Intake Total 350 ml Balance 350 ml Intake Oral 250 ml IV Total 100 ml # Voids 1 General Appearance: Alert, Oriented X3, Cooperative, mild distress HEENT: Atraumatic Neck: Carotid [place] Lungs: Other (whjeezing) Cardiovascular: Regular rate, Normal S1, Normal S2 Abdomen: Normal bowel sounds, Soft Rectal: Deferred Psych/Mental Status: Mental status NL Medications Current Medications Medications Dose Ordered Sig/Benito Route Start Time Stop Time Status Last Admin Dose Admin Albuterol 2.5 mg Q6HPRN PRN NEB 02/14/25 19:15 02/15/25 10:43 2.5 MG Ipratropium [place] 0.5 mg Q6HPRN PRN NEB 02/14/25 19:15 02/15/25 10:43 0.5 MG Ceftriaxone Sodium 50 ml @ 100 mls/hr DAILY@09 IV 02/15/25 09:00 02/15/25 10:41 100 MLS/HR Azithromycin 250 ml @ 125 mls/hr DAILY IV 02/15/25 10:00 02/15/25 10:42 125 MLS/HR Methylprednisolone Sodium Succinate 40 mg BID IV 02/14/25 22:00 02/15/25 10:41 40 MG Ondansetron HCl 4 mg Q4HP PRN IV 02/14/25 19:15 Enoxaparin Sodium 40 mg DAILY SC 02/15/25 10:00 02/15/25 10:42 40 MG Acetaminophen 650 mg Q6HP PRN PO 02/14/25 19:15 Laboratory Results Laboratory Tests 02/15/25 05:44 Chemistry Test 02/15/25 05:44 Calcium Level 9.9 mg/dL (8.7-10.4) Assessment/Plan Assessment/Plan Multifocal pneumonia - Abx Hypertension - Monitor and adjust meds as needed COPD with exacerbation Plan discussed with: Patient My Orders Orders - MAURA CARVALHO MD Procedure Category Date Status Time Respiratory Culture HERMAN 02/15/25 In Process W/ Gs 16:19 Urinalysis LAB 02/15/25 Logged 18:20 Sputum Induction RT 02/15/25 Logged 18:20 Respiratory Culture HERMAN 02/15/25 Logged W/ Gs 18:20 Hi-Resolution Chest [address] CT 02/15/25 Logged 18:20 Complete Blood Count LAB 02/16/25 Verified 04:00 Comprehensive LAB 02/16/25 Verified Metabolic Panel 04:00 Date of Service: Feb 15, 2025 Billing Provider: MAURA CARVALHO MD Common Visit Codes: [id number] INP/OBS CARE(HIGH) MAURA CARVALHO MD Feb 15, 2025 18:26
[2025-02-15] MEDS: FUROSEMIDE 20 MG/2 ML VIAL IV ONE (18:44)
[2025-02-16] VITALS (15 sets, daily range): BP systolic 115–146; BP diastolic 67–101; PULSE 81–115; RESP 16–20; TEMP 96.7–97.8; O2SAT 92–99
[2025-02-16 05:18] LABS: Hematocrit 37.8 % (36.0-46.0); Mean Corpuscular Hemoglobin 26.7 pg (28.0-32.0); Mean Corpuscular Hgb Conc. 31.8 g/dL (32.0-36.0); Mean Corpuscular Volume 83.9 fL (80.0-100.0); Platelet Count (auto) 613 10^3/uL (140-450); Red Blood Cells 4.51 10^6/uL (4.0-5.20); Red Cell Distribution Width 15.2 % (11.8-14.3); White Blood Cell 27.2 10^3/uL (4.4-10.8)
[2025-02-16 05:30] LABS: Alanine Aminotransferase 11 U/L (7-40); Albumin 4.1 g/dL (3.2-4.8); Anion Gap 8 (5-15); Aspartate Aminotransferase 18 U/L (13-40); BUN/Creatinine Ratio 21.4 (10.0-20.0); Blood Urea Nitrogen 15 mg/dL (9-23); Calcium 9.4 mg/dL (8.7-10.4); Carbon Dioxide 25 mmol/L (20-31); Chloride 103 mmol/L (98-107); Potassium 4.3 mmol/L (3.5-5.1); Sodium 136 mmol/L (136-145); Total Protein 7.5 g/dL (5.7-8.2)
[2025-02-16 05:31] LABS: Band Neutrophils % (manual) 0; Basophils % (manual) 0 (0.0-2.0); Blast Cells 0; Eosinophils % (manual) 0 (0-7); Metamyelocytes % 0; Monocytes % (manual) 0 (0-12); Myelocytes % 0; Promyelocytes % 0; Reactive Lymphocytes 0
[2025-02-16 05:33] LABS: Alkaline Phosphatase 131 U/L (46-116); Glucose 213 mg/dL (74-106)
[2025-02-16 05:34] LABS: Bilirubin, Total 0.2 mg/dL (0.2-1.0)
[2025-02-16 06:34] LABS: Lymphocytes % (manual) 6 (10.0-50.0)
[2025-02-16 06:36] LABS: Large Platelets FEW; Platelet Estimate Increa
[2025-02-16 07:40] LABS: Urine Bacteria None Seen /hpf (None Seen)
[2025-02-16 07:59] LABS: Urine Blood Negative /uL (Negative); Urine Clarity Clear (Clear); Urine Color Light-Yellow (Yellow); Urine Mucus FEW (None Seen); Urine Protein, UAD Negative (Negative); Urine Specific Gravity 1.021 (1.001-1.035); Urine Squamous Epithelial Cell FEW /hpf (<5); Urine Urobilinogen Normal (Negative); Urine WBC 1 /HPF (0-5)
[2025-02-16] MEDS: FUROSEMIDE 20 MG/2 ML VIAL IV SCH (09:37)
--- NOTE | 2025-02-16 10:14 | DVH ---
CT Chest without intravenous contrast INDICATION: COPD TECHNIQUE: Multidetector spiral CT of the chest was performed from the lung apices to the upper abdom en. Axial, coronal and sagittal multiplanar reformats were performed. High-resolution CT protocol uti lized. Radiation Dose : 1. Chest: CTDI volume is 4.56 mGy. Dose-length product is 167.88 mGy*cm The dose indicators for CT are the volume Computed Tomography (CT) Dose Index (CTDIvol) and the Dose Length Product (DLP), and are measured in units of mGy and mGy-cm, respectively. These indicators are not patient dose, but values generated from the CT scanner acquisition factors. The report includes radiation exposure data for exposures received during this examination. Comparison: 03/23/2024 Findings: Lower neck: Normal thyroid. Lungs: There is redemonstration of diffuse bronchiectasis with peribronchial thickening, mucous plugg ing, cavitation and superimposed tree-in-bud nodularity most prominent in the left lower lobe. Overal l, findings appear slightly improved since CT chest dated 11/02/2024. Heart/Vascular Structures: Cardiomegaly. Coronary artery calcifications. Vascular calcifications of t he aorta. Ectasia of the ascending thoracic aorta measures 3.8 cm. Lymph Nodes: No adenopathy Pleura: No pleural effusion or significant pneumothorax. Musculoskeletal: No acute osseous abnormality. Soft tissues: Normal. Upper abdomen: Mildly nodular hepatic contours may represent early changes of cirrhosis. IMPRESSION: Redemonstration of diffuse bronchiectasis, peribronchial thickening, mucous plugging, cavitation and superimposed tree-in-bud nodularity most prominent in the left lower lobe. Overall, findings appear slightly improved since CT chest dated 11/02/2024 and 01/23/2024. Findings most likely represent a co mbination of chronic indolent infection such as ANGELO or fungal disease with waxing/waning superimposed airspace disease component. Radiation optimization: All CT scans at this facility use at least one of these dose optimization [facility] hniques: automated exposure control mA and/or kV adjustment per patient size (includes targeted exam s where dose is matched to clinical indication) or iterative reconstruction.
[2025-02-16] MEDS: ACETYLCYSTEINE 20%(200MG/ML) SOL 4ML NEB SCH (14:07)
--- NOTE | 2025-02-16 15:24 | ECG ---
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
--- NOTE | 2025-02-16 18:41 | DVHPN2 ---
Subjective Seen and examined at bedside. On 2L oxygen will need bronchoscopy tomorrow. Changes from previous H/P or p: No Changes Objective Vitals Vital Signs Date Time Temp Pulse Resp B/P (MAP) Pulse Ox O2 Delivery O2 Flow Rate FiO2 02/16/25 17:00 97.3 81 18 125/90 (102) 92 97.3 02/16/25 14:07 Nasal Cannula 1.0 02/16/25 14:07 24 Intake/Output Intake and Output 02/16/25 07:00 Intake Total 1400 ml Balance 1400 ml Intake Oral 1100 ml IV Total 300 ml # Voids 4 # Bowel Movements 2 General Appearance: Alert, Oriented X3, Cooperative, No acute distress HEENT: Atraumatic Neck: Carotid [place] Lungs: Other Cardiovascular: Regular rate, Normal S1, Normal S2 Abdomen: Normal bowel sounds, Soft Rectal: Deferred Psych/Mental Status: Mental status NL Medications Current Medications Medications Dose Ordered Sig/Benito Route Start Time Stop Time Status Last Admin Dose Admin Albuterol 2.5 mg Q6HPRN PRN NEB 02/14/25 19:15 02/16/25 14:07 2.5 MG Ipratropium [place] 0.5 mg Q6HPRN PRN NEB 02/14/25 19:15 02/15/25 20:38 0.5 MG Ceftriaxone Sodium 50 ml @ 100 mls/hr DAILY@09 IV 02/15/25 09:00 02/16/25 08:41 100 MLS/HR Azithromycin 250 ml @ 125 mls/hr DAILY IV 02/15/25 10:00 02/16/25 09:36 125 MLS/HR Methylprednisolone Sodium Succinate 40 mg BID IV 02/14/25 22:00 02/16/25 09:36 40 MG Ondansetron HCl 4 mg Q4HP PRN IV 02/14/25 19:15 Enoxaparin Sodium 40 mg DAILY SC 02/15/25 10:00 02/16/25 09:36 40 MG Acetaminophen 650 mg Q6HP PRN PO 02/14/25 19:15 Furosemide 20 mg DAILY IV 02/16/25 10:00 02/16/25 09:37 20 MG Acetylcysteine 200 mg Q8HR NEB 02/16/25 14:00 02/16/25 14:07 200 MG Laboratory Results Laboratory Tests 02/16/25 04:46 Chemistry Test 02/16/25 04:46 Albumin 4.1 g/dL (3.2-4.8) Calcium Level 9.4 mg/dL (8.7-10.4) Total Protein 7.5 g/dL (5.7-8.2) LFT Test 02/16/25 04:46 Alanine Aminotransferase (ALT) 11 U/L (7-40) Alkaline Phosphatase 131 U/L (46-116) H Aspartate Amino Transferase (AST) 18 U/L (13-40) Total Bilirubin 0.2 mg/dL (0.2-1.0) Urinalysis Test 02/16/25 07:35 Urine Color Light-yellow (Yellow) Urine Clarity Clear (Clear) Urine pH 6.0 (5.0-9.0) Urine Specific [place] 1.021 (1.001-1.035) Urine Protein Negative (Negative) Urine Ketones Negative (Negative) Urine Blood Negative /uL (Negative) Urine Nitrite Negative (Negative) Urine Bilirubin Negative (Negative) Urine Urobilinogen Normal mg/dL (Negative) Urine Leukocyte Esterase Negative /uL (Negative) Urine RBC None seen /hpf (0 - 4) Urine Microscopic WBC 1 /HPF (0-5) Urine Squamous Epithelial Cells Few /hpf (<5) Urine Bacteria None seen /hpf (None Seen) Urine Mucus Few (None Seen) Urine Glucose Normal mg/dL (Normal) Microbiology Microbiology Date/Time Source Procedure Growth Status 02/15/25 16:47 Sputum Gram Stain - Final Resulted 02/15/25 16:47 Sputum Respiratory Culture - Preliminary Resulted 02/14/25 19:24 Blood Blood Culture - Preliminary NO GROWTH AFTER 24 HOURS OF INCUBATION. Resulted Assessment/Plan Assessment/Plan Multifocal pneumonia - Abx, CT Chest reviewed. Needs Bronchoscopy. Hypertension - Monitor and adjust meds as needed COPD with exacerbation Plan discussed with: Patient My Orders Orders - MAURA CARVALHO MD Procedure Category Date Status Time Hi-Resolution Chest Ct CT 02/16/25 Resulted 07:47 Acetylcysteine PHA 02/16/25 In Process Inhalation 20% 14:00 Basic Metabolic Panel LAB 02/17/25 Verified 04:00 Complete Blood Count LAB 02/17/25 Verified 04:00 Prothrombin Time W/ LAB 02/17/25 Verified INR 04:00 Partial LAB 02/17/25 Verified Thromboplastin Time 04:00 Npo (Nothing By DIET 02/17/25 Transmitted Mouth) Diet Breakfast Date of Service: Feb 16, 2025 Billing Provider: MAURA CARVALHO MD Common Visit Codes: [id number] INP/OBS CARE(HIGH) MAURA CARVALHO MD Feb 16, 2025 18:41
--- NOTE | 2025-02-16 22:12 | DVHINCON2 ---
Date of service: Feb 16, 2025 Referring Physician Soto Nicole NP Reason for Consultation Acute hypoxic respiratory failure, COPD exacerbation, pneumonia and atelectasis. History of Present Illness A 74-year-old woman with past medical history of COPD and hypertension who presented to ED on 02/14/25 for evaluation of shortness of breath. Patient was seen by PCP, who advised her to present to ED to rule out possible pneumonia. Patient also reported cough over the past 3 days prior to presentation, productive of yellow sputum. Positive intermittent chills. Denied chest pain or palpitations. No other acute complaints. Patient was admitted for further care, and pulmonary consultation is requested for evaluation and management of acute hypoxic respiratory failure, COPD exacerbation, pneumonia and atelectasis. Review of Systems: 14-point review of systems negative unless otherwise noted above. Past Medical History: Hypertension and COPD Past Surgical History: Tubal ligation and hysterectomy Medications: Reviewed. Allergies: Morphine. Family History: Diabetes mellitus cirrhosis hepatitis. Social History: Nonsmoker. Occasional alcohol use. No illicit drug use. Family History: Diabetes mellitus G8 MOTHER G8 FATHER FH: cirrhosis G8 FATHER FH: hepatitis G8 FATHER Allergies: Coded Allergies: Morphine (Verified Allergy, Intermediate, VOMITING, 02/16/25) Home Meds Active Scripts Furosemide (Lasix) 20 Mg Tb, 1 TAB PO DAILY, #14 TAB 0 Refills Prov:MAURA THOMASON MD 01/26/24 Fluticasone-Salmeterol (Advair Diskus 250/50) 1 Puff Ih, 1 PUFF INH BID, #1 INHALER 5 Refills Prov:MAURA THOMASON MD 01/26/24 Doxycycline Hyclate (Doxycycline Hyclate) 100 Mg Cap, 100 MG PO BID for 7 Days, #14 CAP Prov:MAURA THOMASON MD 01/26/24 Prednisone (Prednisone) 20 Mg Tab, 40 MG PO QAM for 7 Days, #7 MG Prov:MAURA THOMASON MD 01/26/24 Albuterol Sulfate (Ventolin) 2.5 Mg/0.5 Ml Nb, 2.5 MG NEB Q6H for 30 Days, #60 INH Prov:MAURA THOMASON MD 01/26/24 Reported Medications Dtlgotpemvd-[id number]-[id number] (Trelegy Ellipta 100-62.5-25 Mcg/INH) 1 Aer Aer, 1 AER IN, AER 02/14/25 Current Medications Current Medications Medications (Trade) Dose Ordered Sig/Benito Route PRN Reason Start Time Stop Time Status Last Admin Furosemide (Lasix Injection) 20 mg DAILY IV 02/16/25 10:00 02/16/25 09:37 Acetylcysteine (Mucomyst Inhalation 20%) 200 mg Q8HR NEB 02/16/25 14:00 02/16/25 14:07 Vital Signs Vital Signs Date Time Temp Pulse Resp B/P (MAP) Pulse Ox O2 Delivery O2 Flow Rate FiO2 02/16/25 17:00 97.3 81 18 125/90 (102) 92 97.3 02/16/25 14:07 Nasal Cannula 1.0 02/16/25 14:07 24 Physical Exam Gen.: Patient lying in bed in no apparent distress. On supplemental oxygen. Head: Normocephalic, atraumatic. Eyes: EOMI/PERRLA. Ears: Normal hearing. Normal anatomy. Neck/trachea: Trachea midline, supple. Nose: Normal external anatomy. Mouth: Moist mucous membranes. Chest: Decreased air entry bilaterally. No wheezing or rhonchi. Cardiovascular: Positive S1, positive S2. Regular rate and rhythm. Abdomen: Positive bowel sounds in all 4 quadrants. Soft, non-tender, non- distended. : Deferred. Rectal: Deferred. Skin: Warm, dry. Intact. Extremities: 2+ radial pulses bilaterally. No lower extremity edema. Neuro: Awake, alert, oriented x3. No gross motor or sensory deficits. Cranial nerves II through XII intact. Gait not assessed. Labs/Diagnostic Data Labs Test 02/16/25 07:35 02/16/25 04:46 02/15/25 05:44 02/14/25 19:24 Range/Units Urine Color Light-yellow Yellow Urine Clarity Clear Clear Urine pH 6.0 5.0-9.0 Urine Specific [place] 1.021 1.001-1.035 Urine Protein Negative Negative Urine Ketones Negative Negative Urine Blood Negative Negative /uL Urine Nitrite Negative Negative Urine Bilirubin Negative Negative Urine Urobilinogen Normal Negative mg/dL Urine Leukocyte Esterase Negative Negative /uL Urine RBC None seen 0 - 4 /hpf Urine Microscopic WBC 1 0-5 /HPF Urine Squamous Epithelial Cells Few <5 /hpf Urine Bacteria None seen None Seen /hpf Urine Mucus Few None Seen Urine Glucose Normal Normal mg/dL White Blood Count 27.2 #H 4.4-10.8 10^3/uL Red Blood Count 4.51 4.0-5.20 10^6/uL Hemoglobin 12.0 L 12.2-16.2 g/dL Hematocrit 37.8 36.0-46.0 % Mean Corpuscular Volume 83.9 80.0-100.0 fL Mean Corpuscular Hemoglobin 26.7 L 28.0-32.0 pg Mean Corpuscular Hemoglobin Concent 31.8 L 32.0-36.0 g/dL Red Cell Distribution Width 15.2 H 11.8-14.3 % Platelet Count 613 H 140-450 10^3/uL Mean Platelet Volume 7.7 6.9-10.8 fL Neutrophils (%) (Auto) 37.0-80.0 % Lymphocytes (%) (Auto) 10.0-50.0 % Monocytes (%) (Auto) 0.0-12.0 % Basophils (%) (Auto) 0.0-2.0 % Neutrophils # (Auto) 1.6-8.6 10 ^3/uL Lymphocytes # (Auto) 0.4-5.4 10 ^3/uL Monocytes # (Auto) 0-1.3 10 ^3/uL Differential Total Cells Counted 100.0 100 Neutrophils % (Manual) 94 H 37.0-80.0 Band Neutrophils % (Manual) 0 Lymphocytes % (Manual) 6 L 10.0-50.0 Monocytes % (Manual) 0 0-12 Eosinophils % (Manual) 0 0-7 Basophils % (Manual) 0 0.0-2.0 Metamyelocytes % (manual) 0 Myelocytes % (Manual) 0 Promyelocytes % (Manual) 0 Blast Cells % (Manual) 0 Reactive Lymphocytes 0 Platelet Estimate Increa Large Platelets Few Sodium Level 136 136-145 mmol/L Potassium Level 4.3 3.5-5.1 mmol/L Chloride Level 103 98-107 mmol/L Carbon Dioxide Level 25 20-31 mmol/L Anion Gap 8 5-15 Blood Urea Nitrogen 15 9-23 mg/dL Creatinine 0.70 0.550-1.02 mg/dL Glomerular Filtration Rate Calc 90 >90 mL/min BUN/Creatinine Ratio 21.4 H 10.0-20.0 Serum Glucose 213 H 74-106 mg/dL Calcium Level 9.4 8.7-10.4 mg/dL Total Bilirubin 0.2 0.2-1.0 mg/dL Aspartate Amino Transferase (AST) 18 13-40 U/L Alanine Aminotransferase (ALT) 11 7-40 U/L Alkaline Phosphatase 131 H 46-116 U/L Total Protein 7.5 5.7-8.2 g/dL Albumin 4.1 3.2-4.8 g/dL Hypochromasia (manual) Slight Anisocytosis (manual) Slight Lactic Acid Level 2.0 0.4-2.0 mmol/L Test 02/14/25 18:20 02/14/25 14:36 Range/Units Influenza Type A Antigen Negative Negative Influenza Type B Antigen Negative Negative SARS-CoV-2 Antigen (Rapid) Negative NEGATIVE Eosinophils (%) (Auto) 0.1 0.0-7.0 % Eosinophils # (Auto) 0 0-0.8 10 ^3/uL Basophils # (Auto) 0.1 0-0.2 10 ^3/uL Nucleated Red Blood Cells 0.0 % B-Type Natriuretic Peptide 71.03 0-100 pg/mL Microbiology Date/Time Source Procedure Growth Status 02/15/25 16:47 Sputum Gram Stain - Final Resulted 02/15/25 16:47 Sputum Respiratory Culture - Preliminary Resulted 02/14/25 19:24 Blood Blood Culture - Preliminary NO GROWTH AFTER 48 HOURS OF INCUBATION. Resulted Assessment Impression: Acute hypoxic respiratory failure Dependence on supplemental oxygen Acute COPD exacerbation Pneumonia Atelectasis Bronchiectasis rule out MAC Cachexia, pulmonary BMI 19.4 Plan: Supplemental oxygen 1 LPM NC Titrate to keep O2 sats above 92%. Taper O2 as tolerated. NPO at midnight Plan for therapeutic bronchoscopy with BAL in AM for clearing of mucous plugging. Continue bronchodilators. Continue antibiotics Incentive spirometry Head of bed elevation Aspiration precautions Monitor renal function. Monitor electrolytes. Supplement as necessary. Monitor ins and outs. DVT prophylaxis. Prognosis: Poor given patient's multiple co-morbidities. Rest of plan per hospitalist and other consultants. A total of 76 minutes of clinical care time was spent reviewing the patient record, examining the patient, making a diagnostic and therapeutic plan, discussing this plan with the medical personnel, following up on diagnostic studies and following the patient for clinical stability excluding any and all procedures. At least 50% of this time was spent in direct, [id number] contact. Thank you, DIANA Nicole, for allowing me to participate in this patient's care. Further recommendations will depend on the patient's clinical course. Please do not hesitate to contact me if you have any questions or concerns. This medical document was created using an electronic medical record system with hopscout dictation system. Although these documentations are being carefully reviewed, there may still be some phonetic and typographical changes. The errors are purely typographical, due to imperfection on the software [employer], and do not reflect any compromise in the patient's medical care. Plan discussed with: Patient, Other (SHAUNA Mccann/DIANA Nicole/Dr. Thomason) LOBO ZENG MD Feb 16, 2025 22:12
[2025-02-17] VITALS (14 sets, daily range): BP systolic 119–153; BP diastolic 69–89; PULSE 73–108; RESP 16–24; TEMP 97.4–98.3; O2SAT 93–100
[2025-02-17 05:59] LABS: Basophils # (auto) 0 10 ^3/uL (0-0.2); Basophils % (auto) 0.2 % (0.0-2.0); Eosinophils # (auto) 0 10 ^3/uL (0-0.8); Hematocrit 38.6 % (36.0-46.0); Hemoglobin 12.5 g/dL (12.2-16.2); Lymphocytes % (auto) 4.4 % (10.0-50.0); Mean Corpuscular Hgb Conc. 32.4 g/dL (32.0-36.0); Mean Corpuscular Volume 83.3 fL (80.0-100.0); Monocytes # (auto) 0.7 10 ^3/uL (0-1.3); Monocytes % (auto) 3.1 % (0.0-12.0); Neutrophils # (auto) 20.3 10 ^3/uL (1.6-8.6); Neutrophils % (auto) 92.3 % (37.0-80.0); Platelet Count (auto) 618 10^3/uL (140-450); Red Blood Cells 4.63 10^6/uL (4.0-5.20); Red Cell Distribution Width 15.1 % (11.8-14.3)
[2025-02-17 06:09] LABS: INR 1.03 (0.9-1.15); Partial Thromboplastin Time 29.9 SEC (24.5-34.5); Prothrombin Time 10.9 sec (9.3-11.8)
[2025-02-17 06:15] LABS: Chloride 102 mmol/L (98-107); Potassium 4.4 mmol/L (3.5-5.1); Sodium 137 mmol/L (136-145)
[2025-02-17 06:16] LABS: Anion Gap 8 (5-15); Calcium 9.8 mg/dL (8.7-10.4); Carbon Dioxide 27 mmol/L (20-31)
[2025-02-17 06:21] LABS: BUN/Creatinine Ratio 26.3 (10.0-20.0); Blood Urea Nitrogen 15 mg/dL (9-23)
[2025-02-17 06:29] LABS: Glucose 142 mg/dL (74-106)
[2025-02-17] MEDS ORDERED: LIDOCAINE HCL 2% TOP JELLY 5ML TOP ONE (10:55)
[2025-02-17] MEDS ORDERED: LIDOCAINE 2%HCL (LOCAL ANESTH.) INJ 20ML MDV ONE (10:57)
[2025-02-17] MEDS ORDERED: EPINEPHrine HCL 1 MG/1 ML AMP ONE (10:57)
[2025-02-17] MEDS ORDERED: SODIUM CHLORIDE LOCK 10 ML ONE (10:57)
[2025-02-17] MEDS: diphenhdrAMINE HCL 50 MG/1 ML VL ONE (11:33)
[2025-02-17] MEDS: GLYCOPYRROLATE 0.2 MG/ML 1ML VIAL ONE (11:33)
[2025-02-17] MEDS: MIDAZOLAM HCL 5 MG/ML-1ML VIAL ONE (11:33)
[2025-02-17] MEDS: fentaNYL CITRATE 100 MCG/2 ML VL ONE (11:33)
--- NOTE | 2025-02-17 11:59 | DVHNC2 ---
Procedure - Bronchoscopy procedure note: Indications: Bronchiectasis r/o MAC, Mucous plugging. Medicines: Fentanyl 25 mcg, Versed 2 mg, glycopyrrolate 0.2 mg, Benadryl 50 mg Complications: None Procedure: Patient medications and allergies reviewed. The risks and benefits of the procedure and the sedation options and risk were discussed with the patient. All questions were answered and informed consent was obtained. Patient identification and proposed procedure were verified prior to the procedure by the physician, and a nurse, and the respiratory therapist in ICU room. The heart rate, respiratory rate, oxygen saturations, blood pressure, adequacy of pulmonary ventilation, and response to care were monitored throughout the procedure. The physical status of the patient was reassessed after the procedure. After obtaining informed consent, the bronchoscope was introduced through the or opharynx and advanced into the trachea bronchial tree of both lungs. The procedure was accomplished without difficulty. The patient tolerated the procedure well. Findings: The trachea is in normal caliber. The jigar is sharp. The tracheobronchial tree of the right lung was examined to at least the first subsegmental level. The bronchial mucosa and anatomy in the right lung are normal. There are no endobronchial lesions. There was copious whitish secretions from right main stem bronchus onward throughout R1-R10. Right middle lobe (RML) Bronchoalveolar lavage (BAL) obtained. RML BAL sent for gram stain and culture, viral culture, fungal culture, and AFB smear and culture. The left upper lobe, lingula, and left lower lobe were examined to at least the first subsegmental level. Bronchial mucosa and anatomy in the left upper lobe and lingula are normal. There were no endobronchial lesions. There was copious whitish secretions from left main stem bronchus onward throughout L1-L5. Mucous plugging removed from L1-L5. Lingula Bronchoalveolar lavage (BAL) obtained. Lingula BAL sent for gram stain and culture, viral culture, fungal culture, and AFB smear and culture. There was no active bleeding at the completion of the procedure. Estimated blood loss: Less than 5 mL. Impression: Left lower lobe atelectasis due to mucous plugging Mucous plugging from L1-L5 RML BAL performed Lingula BAL performed Recommendation: Follow-up Lingular and RML BAL results. Procedure codes: 69028, bronchoscopy, rigid and flexible, including fluoroscopic guidance, one performed; with bronchial endobronchial broncho-alveolar lavage, single or multiple sites LOBO ZENG MD Feb 17, 2025 11:59
--- NOTE | 2025-02-17 12:02 | DVHNC2 ---
Procedure - I administered moderate sedation throughout the 10 minutes of the procedure. An independent observer administered medications at my direction and monitored the patient's level of consciousness and physiological status throughout the procedure. CPT 63155 for the first 15 minutes. CONSCIOUS SEDATION PROCEDURE NOTE: Procedural Sedation Performed by: Dr Rene Gustafson Indications:Bronchoscopy with Bronchoalveolar lavage [place] Protocol: a time out was performed and the correct patient and site were verified Consent: The risks and benefits of monitored anesthesia care, including the risk of aspiration, deep sedation requiring airway management including possible intubation, nausea/vomiting and the risks of not performing the procedure, including severe pain and inability to complete the procedure, were all discussed with the patient. The alternatives of performing the procedure, including local anesthesia and IV analgesia, also discussed. The patient has a ride home available. ASA Class: II-mild systemic disease Mallampati Score: 2 Pre-anesthesia evaluation, including history, exam, and informed consent is documented in the note above. Monitoring: Continuous monitoring of heart rate, respiratory rate, pulse oximetry and ETCO2. Supplemental oxygen prior to and during procedure via nasal cannula. Resuscitation equipment available at the bedside during sedation. Intra-service start time: 1136 Intra-service stop time: 1146 The patient received fentanyl 25 mcg IV push, Versed 2 mg IV push, glycopyrrolate 0.2 mg IV push, Benadryl 50 mg IV push and dosages were recorded on the sedation form. The patient was recovered from the sedation without complication or incident. Patient returned to pre-sedation level of awareness. The monitoring was discontinued at this time. Post-anesthesia evaluation: Respiratory function, cardiovascular function, temperature, and mental status did return to pre-anesthetic state. Pain was controlled. The patient did tolerate p.o. LOBO GUSTAFSON MD Feb 17, 2025 12:02
--- NOTE | 2025-02-17 12:42 | DVH ---
CHEST RADIOGRAPH Indication: s/p bronchoscopy r/o pneumothorax Technique: Single frontal view of the chest was obtained COMPARISON: XY CHEST PORTABLE on DOS: 01/24/24, XY CHEST PORTABLE on DOS: 01/23/24, XY CHEST PORTABLE o n DOS: 01/21/24, CHEST PORTABLE on DOS: 01/09/23, CXRP on DOS: 01/09/23 FINDINGS: Lines and Tubes: None Lungs: Diffuse interstitial changes in both lung rao not improved when compared to the prior chest x-ray of 02/14/[address] of 02/16/2025. No pneumothorax identified. Normal heart size. Pleura: No effusion. No pneumothorax. Cardiomediastinal contours: Unremarkable Bones: Unremarkable IMPRESSION: 1. Diffuse bilateral pulmonary infiltrates not improved since prior study No pneumothorax.
[2025-02-17] MEDS: THROAT LOZENGES(CEPASTAT) MT ONE (12:51)
[2025-02-17] MEDS: ACETAMINOPHEN 325 MG TAB PO PRN (13:23)
[2025-02-17] MEDS: FLUCONAZOLE 200MG/100ML 100 ML IV SCH (13:40)
[2025-02-17] MEDS: DOXYCYCLINE 100MG/100ML 100 ML IV SCH (17:00)
--- NOTE | 2025-02-17 19:28 | DVHPN2 ---
Progress Note - Dictate Date Seen: Feb 17, 2025 Medical Necessity Reason Pt with a Central, PICC or Fol: No Subjective Patient seen and examined at bedside. Remains on supplemental oxygen Overnight events reviewed. vital signs Vital Sign Date Time Temp Pulse Resp B/P (MAP) Pulse Ox O2 Delivery O2 Flow Rate FiO2 02/17/25 16:55 98.3 81 16 119/80 (93) 98 98.3 02/17/25 11:53 Nasal Cannula 6.0 02/17/25 11:36 100 Total Intake and Output 02/16/25 02/16/25 02/17/25 15:00 23:00 07:00 Intake Total 300 ml 0 ml 800 ml Balance 300 ml 0 ml 800 ml medications Current Medications Medications Dose Ordered Sig/Benito Route Start Time Stop Time Status Last Admin Dose Admin Albuterol 2.5 mg Q6HPRN PRN NEB 02/14/25 19:15 02/17/25 05:43 2.5 MG Ipratropium [place] 0.5 mg Q6HPRN PRN NEB 02/14/25 19:15 02/16/25 22:16 0.5 MG Ceftriaxone Sodium 50 ml @ 100 mls/hr DAILY@09 IV 02/15/25 09:00 02/17/25 09:15 100 MLS/HR Methylprednisolone Sodium Succinate 40 mg BID IV 02/14/25 22:00 02/17/25 09:15 40 MG Ondansetron HCl 4 mg Q4HP PRN IV 02/14/25 19:15 Enoxaparin Sodium 40 mg DAILY SC 02/15/25 10:00 02/16/25 09:36 40 MG Acetaminophen 650 mg Q6HP PRN PO 02/14/25 19:15 02/17/25 13:23 650 MG Furosemide 20 mg DAILY IV 02/16/25 10:00 02/17/25 09:16 20 MG Acetylcysteine 200 mg Q8HR NEB 02/16/25 14:00 02/17/25 05:42 200 MG Doxycycline Hyclate 100 ml @ 50 mls/hr Q12H IV 02/17/25 13:00 02/17/25 17:00 50 MLS/HR objective Gen.: Patient lying in bed in no apparent distress. On supplemental oxygen. Head: Normocephalic, atraumatic. Eyes: EOMI/PERRLA. Ears: Normal hearing. Normal anatomy. Neck/trachea: Trachea midline, supple. Nose: Normal external anatomy. Mouth: Moist mucous membranes. Chest: Decreased air entry bilaterally. No wheezing or rhonchi. Cardiovascular: Positive S1, positive S2. Regular rate and rhythm. Abdomen: Positive bowel sounds in all 4 quadrants. Soft, non-tender, non- distended. : Deferred. Rectal: Deferred. Skin: Warm, dry. Intact. Extremities: 2+ radial pulses bilaterally. No lower extremity edema. Neuro: Awake, alert, oriented x3. No gross motor or sensory deficits. Cranial nerves II through XII intact. Gait not assessed laboratory and microbiology Laboratory Tests 02/17/25 05:11 Test 02/17/25 05:11 Range/Units Serum Glucose 142 H 74-106 mg/dL Assessment/Plan Impression: Acute hypoxic respiratory failure Dependence on supplemental oxygen Acute COPD exacerbation Pneumonia Atelectasis Bronchiectasis rule out MAC Cachexia, pulmonary BMI 19.4 Events: Remains on supplemental oxygen, 1 LPM NC Taper O2 as tolerated S/p bronchoscopy. BAL obtained from right middle lobe and lingula to rule out MAC. Cleared mucous plugging. See separate note for details of procedure. Follow up on BAL cultures Continue bronchodilators Continue antibiotics - Stop azithromycin and start doxycycline Incentive spirometry Antitussive for cough. Start Diflucan for tree-in-bud opacities. Labs and imaging reviewed. Rest of plan as noted below. Plan: Supplemental oxygen Titrate to keep O2 sats above 92%. Continue bronchodilators. Continue antibiotics Incentive spirometry Head of bed elevation Aspiration precautions Monitor renal function. Monitor electrolytes. Supplement as necessary. Monitor ins and outs. DVT prophylaxis. Prognosis: Poor given patient's multiple co-morbidities. Rest of plan per hospitalist and other consultants. A total of 51 minutes of clinical care time was spent reviewing the patient record, examining the patient, making a diagnostic and therapeutic plan, discussing this plan with the medical personnel, following up on diagnostic studies and following the patient for clinical stability excluding any and all procedures. At least 50% of this time was spent in direct, [id number] contact. Thank you, DIANA Nicole, for allowing me to participate in this patient's care. Further recommendations will depend on the patient's clinical course. Please do not hesitate to contact me if you have any questions or concerns. This medical document was created using an electronic medical record system with [employer] dictation system. Although these documentations are being carefully reviewed, there may still be some phonetic and typographical changes. The errors are purely typographical, due to imperfection on the software program, and do not reflect any compromise in the patient's medical care. Dietary Evaluation Review Recommendations by RD: Protein Supplementation Comments: 1) Collect HbA1c d/t elevated BG level(s) 2) Initiate Glucerna qd 3) Continue to promote optimal PO intake, monitor I&O, labs, and skin integrity Expected Outcomes/Goals: 1) appetite and labs to improve 2) f/u in 3-5 days Plan discussed with: Patient, Other (SHAUNA Mcwilliams) LOBO ZENG MD Feb 17, 2025 19:28
[2025-02-18] VITALS (15 sets, daily range): BP systolic 126–151; BP diastolic 78–91; PULSE 77–118; RESP 16–32; TEMP 97.1–98.2; O2SAT 91–100
--- NOTE | 2025-02-18 13:29 | DVHPN2 ---
Reviewed: Care Plan Changes from previous H/P or p: No Changes General: Per HPI Objective Vitals Vital Signs Date Time Temp Pulse Resp B/P (MAP) Pulse Ox O2 Delivery O2 Flow Rate FiO2 02/18/25 09:21 145/80 02/18/25 07:34 83 26 95 02/18/25 07:34 Room Air 0.0 02/18/25 07:34 21 02/18/25 05:00 97.8 97.8 Intake/Output Intake and Output 02/18/25 07:00 Intake Total 750 ml Balance 750 ml Intake Oral 700 ml IV Total 50 ml # Voids 4 General Appearance: Alert, Oriented X3, Cooperative, No acute distress HEENT: Atraumatic Neck: Carotid Bruits [place] Lungs: Other Cardiovascular: Regular rate, Normal S1, Normal S2 Abdomen: Normal bowel sounds, Soft Rectal: Deferred Psych/Mental Status: Mental status NL Medications Current Medications Medications Dose Ordered Sig/Benito Route Start Time Stop Time Status Last Admin Dose Admin Albuterol 2.5 mg Q6HPRN PRN NEB 02/14/25 19:15 02/18/25 07:34 2.5 MG Ipratropium [place] 0.5 mg Q6HPRN PRN NEB 02/14/25 19:15 02/18/25 07:34 0.5 MG Ceftriaxone Sodium 50 ml @ 100 mls/hr DAILY@09 IV 02/15/25 09:00 02/18/25 09:20 100 MLS/HR Methylprednisolone Sodium Succinate 40 mg BID IV 02/14/25 22:00 02/18/25 09:21 40 MG Ondansetron HCl 4 mg Q4HP PRN IV 02/14/25 19:15 Enoxaparin Sodium 40 mg DAILY SC 02/15/25 10:00 02/18/25 09:22 40 MG Acetaminophen 650 mg Q6HP PRN PO 02/14/25 19:15 02/18/25 02:16 650 MG Furosemide 20 mg DAILY IV 02/16/25 10:00 02/18/25 09:21 20 MG Acetylcysteine 200 mg Q8HR NEB 02/16/25 14:00 02/18/25 07:34 200 MG Doxycycline Hyclate 100 ml @ 50 mls/hr Q12H IV 02/17/25 13:00 02/18/25 01:05 50 MLS/HR Laboratory Results Laboratory Tests 02/17/25 05:11 Urinalysis Test 02/16/25 07:35 Urine Color Light-yellow (Yellow) Urine Clarity Clear (Clear) Urine pH 6.0 (5.0-9.0) Urine Specific [place] 1.021 (1.001-1.035) Urine Protein Negative (Negative) Urine Ketones Negative (Negative) Urine Blood Negative /uL (Negative) Urine Nitrite Negative (Negative) Urine Bilirubin Negative (Negative) Urine Urobilinogen Normal mg/dL (Negative) Urine Leukocyte Esterase Negative /uL (Negative) Urine RBC None seen /hpf (0 - 4) Urine Microscopic WBC 1 /HPF (0-5) Urine Squamous Epithelial Cells Few /hpf (<5) Urine Bacteria None seen /hpf (None Seen) Urine Mucus Few (None Seen) Urine Glucose Normal mg/dL (Normal) Microbiology Microbiology Date/Time Source Procedure Growth Status 02/17/25 13:11 Lung Pending Resulted 02/17/25 13:11 Lung Pending Resulted 02/17/25 13:11 Lung Pending Resulted 02/17/25 13:11 Lung Pending Resulted 02/17/25 13:11 Lung - Final See Separate Report... Resulted 02/17/25 13:11 Bronchial Washings Gram Stain Pending Resulted 02/17/25 13:11 Bronchial Washings Respiratory Culture - Preliminary Resulted 02/14/25 19:24 Blood Blood Culture - Preliminary NO GROWTH AFTER 72 HOURS OF INCUBATION. Resulted Labs and/or images reviewed: Labs reviewed by me, Image(s) reviewed by me Assessment/Plan Assessment/Plan Multifocal pneumonia - Abx, CT Chest reviewed. Needs Bronchoscopy. Hypertension - Monitor and adjust meds as needed COPD with exacerbation acute hypoxic resp failure: on supplement O2, weaning daily wheezing: PRN breathing tx 02/17/25: bronchoscopy done. awaiting results Plan discussed with: Patient Date of Service: Feb 17, 2025 Billing Provider: JUAN LUIS MORFIN DO Common Visit Codes: [id number] INP/OBS CARE(HIGH) JUAN LUIS MORFIN DO Feb 18, 2025 13:29
--- NOTE | 2025-02-18 13:29 | DVHPN2 ---
Reviewed: Care Plan Changes from previous H/P or p: No Changes General: Per HPI Objective Vitals Vital Signs Date Time Temp Pulse Resp B/P (MAP) Pulse Ox O2 Delivery O2 Flow Rate FiO2 02/18/25 09:21 145/80 02/18/25 07:34 83 26 95 02/18/25 07:34 Room Air 0.0 02/18/25 07:34 21 02/18/25 05:00 97.8 97.8 Intake/Output Intake and Output 02/18/25 07:00 Intake Total 750 ml Balance 750 ml Intake Oral 700 ml IV Total 50 ml # Voids 4 General Appearance: Alert, Oriented X3, Cooperative, No acute distress HEENT: Atraumatic Neck: Carotid [place]its [place] Lungs: Other Cardiovascular: Regular rate, Normal S1, Normal S2 Abdomen: Normal bowel sounds, Soft Rectal: Deferred Psych/Mental Status: Mental status NL Medications Current Medications Medications Dose Ordered Sig/[place] Route Start Time Stop Time Status Last Admin Dose Admin Albuterol 2.5 mg Q6HPRN PRN NEB 02/14/25 19:15 02/18/25 07:34 2.5 MG Ipratropium [place] 0.5 mg Q6HPRN PRN NEB 02/14/25 19:15 02/18/25 07:34 0.5 MG Ceftriaxone Sodium 50 ml @ 100 mls/hr DAILY@09 IV 02/15/25 09:00 02/18/25 09:20 100 MLS/HR Methylprednisolone Sodium Succinate 40 mg BID IV 02/14/25 22:00 02/18/25 09:21 40 MG Ondansetron HCl 4 mg Q4HP PRN IV 02/14/25 19:15 Enoxaparin Sodium 40 mg DAILY SC 02/15/25 10:00 02/18/25 09:22 40 MG Acetaminophen 650 mg Q6HP PRN PO 02/14/25 19:15 02/18/25 02:16 650 MG Furosemide 20 mg DAILY IV 02/16/25 10:00 02/18/25 09:21 20 MG Acetylcysteine 200 mg Q8HR NEB 02/16/25 14:00 02/18/25 07:34 200 MG Doxycycline Hyclate 100 ml @ 50 mls/hr Q12H IV 02/17/25 13:00 02/18/25 01:05 50 MLS/HR Laboratory Results Laboratory Tests 02/17/25 05:11 Urinalysis Test 02/16/25 07:35 Urine Color Light-yellow (Yellow) Urine Clarity Clear (Clear) Urine pH 6.0 (5.0-9.0) Urine Specific [place] 1.021 (1.001-1.035) Urine Protein Negative (Negative) Urine Ketones Negative (Negative) Urine Blood Negative /uL (Negative) Urine Nitrite Negative (Negative) Urine Bilirubin Negative (Negative) Urine Urobilinogen Normal mg/dL (Negative) Urine Leukocyte Esterase Negative /uL (Negative) Urine RBC None seen /hpf (0 - 4) Urine Microscopic WBC 1 /HPF (0-5) Urine Squamous Epithelial Cells Few /hpf (<5) Urine Bacteria None seen /hpf (None Seen) Urine Mucus Few (None Seen) Urine Glucose Normal mg/dL (Normal) Microbiology Microbiology Date/Time Source Procedure Growth Status 02/17/25 13:11 Lung Pending Resulted 02/17/25 13:11 Lung Pending Resulted 02/17/25 13:11 Lung Pending Resulted 02/17/25 13:11 Lung Pending Resulted 02/17/25 13:11 Lung - Final See Separate Report... Resulted 02/17/25 13:11 Bronchial Washings Gram Stain Pending Resulted 02/17/25 13:11 Bronchial Washings Respiratory Culture - Preliminary Resulted 02/14/25 19:24 Blood Blood Culture - Preliminary NO GROWTH AFTER 72 HOURS OF INCUBATION. Resulted Assessment/Plan Assessment/Plan Multifocal pneumonia - Abx, CT Chest reviewed. Needs Bronchoscopy. Hypertension - Monitor and adjust meds as needed COPD with exacerbation acute hypoxic resp failure: on supplement O2, weaning daily wheezing: PRN breathing tx 02/17/25: bronchoscopy done. awaiting results 02/18/2025: pt is still short of breath, pending bronchoscopy results. PRN breathing tx. increase steroid dose Plan discussed with: Patient Date of Service: Feb 18, 2025 Billing Provider: JUAN LUIS MORFIN DO Common Visit Codes: [id number] INP/OBS CARE(HIGH) JUAN LUIS MORFIN DO Feb 18, 2025 13:29
[2025-02-18] MEDS ORDERED: guaiFENesin-CODEINE Liq 5 ML UD PO PRN (15:30)
[2025-02-18] MEDS: guaiFENesin-DM 100/10mg/5ml SYR PO PRN (21:06)
--- NOTE | 2025-02-18 23:39 | DVHPN2 ---
Progress Note - Dictate Date Seen: Feb 18, 2025 Medical Necessity Reason Pt with a Central, PICC or Fol: No Subjective Patient seen and examined at bedside. Currently breathing on room air Overnight events reviewed. vital signs Vital Sign Date Time Temp Pulse Resp B/P (MAP) Pulse Ox O2 Delivery O2 Flow Rate FiO2 02/18/25 22:11 107 20 99 02/18/25 22:00 Room Air* 0 21 02/18/25 17:00 97.7 151/86 (107) 97.7 Total Intake and Output 02/17/25 02/17/25 02/18/25 15:00 23:00 07:00 Intake Total 50 ml 150 ml 550 ml Balance 50 ml 150 ml 550 ml medications Current Medications Medications Dose Ordered Sig/[place] Route Start Time Stop Time Status Last Admin Dose Admin Albuterol 2.5 mg Q6HPRN PRN NEB 02/14/25 19:15 02/18/25 22:02 2.5 MG Ipratropium [place] 0.5 mg Q6HPRN PRN NEB 02/14/25 19:15 02/18/25 22:02 0.5 MG Ceftriaxone Sodium 50 ml @ 100 mls/hr DAILY@09 IV 02/15/25 09:00 02/18/25 09:20 100 MLS/HR Methylprednisolone Sodium Succinate 40 mg BID IV 02/14/25 22:00 02/18/25 21:05 40 MG Ondansetron HCl 4 mg Q4HP PRN IV 02/14/25 19:15 Enoxaparin Sodium 40 mg DAILY SC 02/15/25 10:00 02/18/25 09:22 40 MG Acetaminophen 650 mg Q6HP PRN PO 02/14/25 19:15 02/18/25 02:16 650 MG Furosemide 20 mg DAILY IV 02/16/25 10:00 02/18/25 09:21 20 MG Acetylcysteine 200 mg Q8HR NEB 02/16/25 14:00 02/18/25 22:03 200 MG Doxycycline Hyclate 100 ml @ 50 mls/hr Q12H IV 02/17/25 13:00 02/18/25 14:32 50 MLS/HR Guaifenesin/ Dextromethorphan 10 ml Q4HP PRN PO 02/18/25 18:00 02/18/25 21:06 10 ML objective Gen.: Patient lying in bed in no apparent distress. On room air. Head: Normocephalic, atraumatic. Eyes: EOMI/PERRLA. Ears: Normal hearing. Normal anatomy. Neck/trachea: Trachea midline, supple. Nose: Normal external anatomy. Mouth: Moist mucous membranes. Chest: Decreased air entry bilaterally. No wheezing or rhonchi. Cardiovascular: Positive S1, positive S2. Regular rate and rhythm. Abdomen: Positive bowel sounds in all 4 quadrants. Soft, non-tender, non- distended. : Deferred. Rectal: Deferred. Skin: Warm, dry. Intact. Extremities: 2+ radial pulses bilaterally. No lower extremity edema. Neuro: Awake, alert, oriented x3. No gross motor or sensory deficits. Cranial nerves II through XII intact. Gait not assessed laboratory and microbiology Laboratory Tests 02/17/25 05:11 Test 02/17/25 05:11 Range/Units Serum Glucose 142 H 74-106 mg/dL Assessment/Plan Impression: Acute hypoxic respiratory failure Dependence on supplemental oxygen Acute COPD exacerbation Pneumonia Atelectasis Bronchiectasis rule out MAC Cachexia, pulmonary BMI 19.4 Events: Currently breathing on room air. Supplemental oxygen PRN S/p bronchoscopy, BAL obtained from right middle lobe and lingula to rule out MAC. Cleared mucous plugging. See separate note for details of procedure (02/17/25). Follow up on BAL cultures Continue bronchodilators/Mucomyst Continue antibiotics - doxycycline IV steroids Incentive spirometry Antitussive for cough. Diurese w/ Lasix as tolerated Monitor renal function Lovenox for DVT prophylaxis Labs and imaging reviewed. Rest of plan as noted below. Plan: Supplemental oxygen PRN Titrate to keep O2 sats above 92%. Continue bronchodilators. Continue antibiotics Incentive spirometry Head of bed elevation Aspiration precautions Monitor renal function. Monitor electrolytes. Supplement as necessary. Monitor ins and outs. DVT prophylaxis. Prognosis: Poor given patient's multiple co-morbidities. Rest of plan per hospitalist and other consultants. A total of 51 minutes of clinical care time was spent reviewing the patient record, examining the patient, making a diagnostic and therapeutic plan, discussing this plan with the medical personnel, following up on diagnostic studies and following the patient for clinical stability excluding any and all procedures. At least 50% of this time was spent in direct, [id number] contact. Thank you, DIANA Nicole, for allowing me to participate in this patient's care. Further recommendations will depend on the patient's clinical course. Please do not hesitate to contact me if you have any questions or concerns. This medical document was created using an electronic medical record system with [employer] dictation system. Although these documentations are being carefully reviewed, there may still be some phonetic and typographical changes. The errors are purely typographical, due to imperfection on the software program, and do not reflect any compromise in the patient's medical care. Dietary Evaluation Review Recommendations by RD: Protein Supplementation Comments: 1) Collect HbA1c d/t elevated BG level(s) 2) Initiate Glucerna qd 3) Continue to promote optimal PO intake, monitor I&O, labs, and skin integrity Expected Outcomes/Goals: 1) appetite and labs to improve 2) f/u in 3-5 days Plan discussed with: Patient, Other (RN) LOBO ZENG MD Feb 18, 2025 23:39
[2025-02-19] VITALS (13 sets, daily range): BP systolic 136–160; BP diastolic 77–98; PULSE 77–119; RESP 18–26; TEMP 97.4–98.8; O2SAT 90–99
--- NOTE | 2025-02-19 14:54 | DVHPN2 ---
Subjective Seen and examined at bedside. On room air. F/u Bronch cultures. Reviewed: Care Plan Changes from previous H/P or p: No Changes General: Per HPI Objective Vitals Vital Signs Date Time Temp Pulse Resp B/P (MAP) Pulse Ox O2 Delivery O2 Flow Rate FiO2 02/19/25 13:00 98.8 119 21 136/92 (107) 91 98.8 02/19/25 10:00 Room Air* 0 21 Intake/Output Intake and Output 02/19/25 07:00 Intake Total 1800 ml Balance 1800 ml Intake Oral 1700 ml IV Total 100 ml # Voids 6 # Bowel Movements 3 General Appearance: Alert, Oriented X3, Cooperative, No acute distress HEENT: Atraumatic Neck: Carotid Bruits [place] Lungs: Other Cardiovascular: Regular rate, Normal S1, Normal S2 Abdomen: Normal bowel sounds, Soft Rectal: Deferred Psych/Mental Status: Mental status NL Medications Current Medications Medications Dose Ordered Sig/[place] Route Start Time Stop Time Status Last Admin Dose Admin Albuterol 2.5 mg Q6HPRN PRN NEB 02/14/25 19:15 02/19/25 08:11 2.5 MG Ipratropium [place] 0.5 mg Q6HPRN PRN NEB 02/14/25 19:15 02/19/25 08:11 0.5 MG Ceftriaxone Sodium 50 ml @ 100 mls/hr DAILY@09 IV 02/15/25 09:00 02/19/25 09:29 100 MLS/HR Methylprednisolone Sodium Succinate 40 mg BID IV 02/14/25 22:00 02/19/25 09:29 40 MG Ondansetron HCl 4 mg Q4HP PRN IV 02/14/25 19:15 Enoxaparin Sodium 40 mg DAILY SC 02/15/25 10:00 02/19/25 09:29 40 MG Acetaminophen 650 mg Q6HP PRN PO 02/14/25 19:15 02/19/25 01:33 650 MG Furosemide 20 mg DAILY IV 02/16/25 10:00 02/19/25 09:30 20 MG Acetylcysteine 200 mg Q8HR NEB 02/16/25 14:00 02/19/25 08:11 200 MG Doxycycline Hyclate 100 ml @ 50 mls/hr Q12H IV 02/17/25 13:00 02/19/25 13:20 50 MLS/HR Guaifenesin/ Dextromethorphan 10 ml Q4HP PRN PO 02/18/25 18:00 02/19/25 13:20 10 ML Throat Lozenges 1 [place] Q2HP PRN MT 02/19/25 13:30 Laboratory Results Laboratory Tests 02/17/25 05:11 Urinalysis Test 02/16/25 07:35 Urine Color Light-yellow (Yellow) Urine Clarity Clear (Clear) Urine pH 6.0 (5.0-9.0) Urine Specific [place] 1.021 (1.001-1.035) Urine Protein Negative (Negative) Urine Ketones Negative (Negative) Urine Blood Negative /uL (Negative) Urine Nitrite Negative (Negative) Urine Bilirubin Negative (Negative) Urine Urobilinogen Normal mg/dL (Negative) Urine Leukocyte Esterase Negative /uL (Negative) Urine RBC None seen /hpf (0 - 4) Urine Microscopic WBC 1 /HPF (0-5) Urine Squamous Epithelial Cells Few /hpf (<5) Urine Bacteria None seen /hpf (None Seen) Urine Mucus Few (None Seen) Urine Glucose Normal mg/dL (Normal) Microbiology Microbiology Date/Time Source Procedure Growth Status 02/17/25 13:11 Lung Pending Resulted 02/17/25 13:11 Lung Pending Resulted 02/17/25 13:11 Lung Pending Resulted 02/17/25 13:11 Lung Pending Resulted 02/17/25 13:11 Lung - Final See Separate Report... Resulted 02/17/25 13:11 Bronchial Washings Gram Stain - Final Resulted 02/17/25 13:11 Bronchial Washings Respiratory Culture - Preliminary Resulted 02/14/25 19:24 Blood Blood Culture - Preliminary NO GROWTH AFTER 72 HOURS OF INCUBATION. Resulted Assessment/Plan Assessment/Plan Multifocal pneumonia - Abx, CT Chest reviewed. s/p Bronchoscopy. Hypertension - Monitor and adjust meds as needed COPD with exacerbation Plan discussed with: Patient, Daughter My Orders Orders - MAURA CARVALHO MD Procedure Category Date Status Time Throat Lozenges PHA 02/19/25 In Process (Cepastat Lozenges) 13:30 Basic Metabolic Panel LAB 02/20/25 Verified 04:00 Date of Service: Feb 19, 2025 Billing Provider: MAURA CARVALHO MD Common Visit Codes: [id number] INP/OBS CARE(HIGH) MAURA CARVALHO MD Feb 19, 2025 14:53
[2025-02-19] MEDS: THROAT LOZENGES(CEPASTAT) MT PRN (17:48)
[2025-02-19] MEDS: CEFEPIME 2GM/50ML NS 50 ML IV SCH (20:52)
[2025-02-20] VITALS (17 sets, daily range): BP systolic 137–157; BP diastolic 83–95; PULSE 90–113; RESP 16–20; TEMP 97.7–98.6; O2SAT 89–100
[2025-02-20] MEDS: methylPREDNISolone SOD SUCC 40 MG/ML VL IV SCH (06:02)
[2025-02-20 10:44] LABS: Potassium 3.9 mmol/L (3.5-5.1)
[2025-02-20 10:45] LABS: Anion Gap 8 (5-15); Calcium 8.9 mg/dL (8.7-10.4); Carbon Dioxide 29 mmol/L (20-31)
[2025-02-20 10:46] LABS: Chloride 93 mmol/L (98-107); Sodium 130 mmol/L (136-145)
[2025-02-20 10:50] LABS: BUN/Creatinine Ratio 20.6 (10.0-20.0); Blood Urea Nitrogen 14 mg/dL (9-23)
[2025-02-20 10:55] LABS: Glucose 224 mg/dL (74-106)
--- NOTE | 2025-02-20 14:45 | DVHPN2 ---
Subjective Seen and examined at bedside. Will setup home IV Abx with Cefepime. Reviewed: Care Plan Changes from previous H/P or p: No Changes General: Per HPI Objective Vitals Vital Signs Date Time Temp Pulse Resp B/P (MAP) Pulse Ox O2 Delivery O2 Flow Rate FiO2 02/20/25 13:00 97.7 113 18 145/95 (112) 90 97.7 02/20/25 10:00 Nasal Cannula* 2 28 Intake/Output Intake and Output 02/20/25 07:00 Intake Total 1950 ml Output Total 2 ml Balance 1948 ml Intake Oral 1900 ml IV Total 50 ml Output Urine Total 2 ml # Voids 3 # Bowel Movements 4 General Appearance: Alert, Oriented X3, Cooperative, No acute distress HEENT: Atraumatic Neck: Carotid Bruits [place] Lungs: Other Cardiovascular: Regular rate, Normal S1, Normal S2 Abdomen: Normal bowel sounds, Soft Rectal: Deferred Psych/Mental Status: Mental status NL Medications Current Medications Medications Dose Ordered Sig/[place] Route Start Time Stop Time Status Last Admin Dose Admin Albuterol 2.5 mg Q6HPRN PRN NEB 02/14/25 19:15 02/20/25 07:17 2.5 MG Ipratropium [place] 0.5 mg Q6HPRN PRN NEB 02/14/25 19:15 02/19/25 22:35 0.5 MG Ondansetron HCl 4 mg Q4HP PRN IV 02/14/25 19:15 Enoxaparin Sodium 40 mg DAILY SC 02/15/25 10:00 02/20/25 09:55 40 MG Acetaminophen 650 mg Q6HP PRN PO 02/14/25 19:15 02/19/25 01:33 650 MG Furosemide 20 mg DAILY IV 02/16/25 10:00 02/20/25 09:53 20 MG Acetylcysteine 200 mg Q8HR NEB 02/16/25 14:00 02/20/25 07:17 200 MG Doxycycline Hyclate 100 ml @ 50 mls/hr Q12H IV 02/17/25 13:00 02/20/25 14:17 50 MLS/HR Guaifenesin/ Dextromethorphan 10 ml Q4HP PRN PO 02/18/25 18:00 02/20/25 06:03 10 ML Throat Lozenges 1 zana Q2HP PRN MT 02/19/25 13:30 02/20/25 09:56 1 ZANA Methylprednisolone Sodium Succinate 40 mg QAM IV 02/20/25 07:00 02/20/25 06:02 40 MG Cefepime HCl 50 ml @ 12.5 mls/hr Q12HR IV 02/19/25 22:00 02/20/25 09:52 12.5 MLS/HR Laboratory Results Laboratory Tests 02/17/25 05:11 02/20/25 09:48 Chemistry Test 02/20/25 09:48 Calcium Level 8.9 mg/dL (8.7-10.4) Urinalysis Test 02/16/25 07:35 Urine Color Light-yellow (Yellow) Urine Clarity Clear (Clear) Urine pH 6.0 (5.0-9.0) Urine Specific [place] 1.021 (1.001-1.035) Urine Protein Negative (Negative) Urine Ketones Negative (Negative) Urine Blood Negative /uL (Negative) Urine Nitrite Negative (Negative) Urine Bilirubin Negative (Negative) Urine Urobilinogen Normal mg/dL (Negative) Urine Leukocyte Esterase Negative /uL (Negative) Urine RBC None seen /hpf (0 - 4) Urine Microscopic WBC 1 /HPF (0-5) Urine Squamous Epithelial Cells Few /hpf (<5) Urine Bacteria None seen /hpf (None Seen) Urine Mucus Few (None Seen) Urine Glucose Normal mg/dL (Normal) Microbiology Microbiology Date/Time Source Procedure Growth Status 02/17/25 13:11 Lung Pending Resulted 02/17/25 13:11 Lung Pending Resulted 02/17/25 13:11 Lung Pending Resulted 02/17/25 13:11 Lung Pending Resulted 02/17/25 13:11 Lung - Final See Separate Report... Resulted 02/17/25 13:11 Bronchial Washings Gram Stain - Final Complete 02/17/25 13:11 Respiratory Culture - Final Pseudomonas aeruginosa Complete 02/14/25 19:24 Blood Blood Culture - Final NO GROWTH AFTER 5 DAYS OF INCUBATION. Complete Assessment/Plan Assessment/Plan Multifocal pneumonia, Pseudomonas - Abx, CT Chest reviewed. s/p Bronchoscopy. Needs IV Abx x 14 days Hypertension - Monitor and adjust meds as needed COPD with exacerbation Plan discussed with: Patient My Orders Orders - MAURA CARVALHO MD Procedure Category Date Status Time Methylprednisolone PHA 02/20/25 In Process Sod Succ (Solu Medrol 07:00 Cefepime 2gm/50ml Ns PHA 02/19/25 In Process (Maxipime 2gm/50ml) 22:00 Insert Midline ORDERS 02/20/25 Transmitted 12:05 Basic Metabolic Panel LAB 02/21/25 Verified 04:00 Complete Blood Count LAB 02/21/25 Verified 04:00 * Clerk Of Works CONS 02/20/25 Transmitted Consult Date of Service: Feb 20, 2025 Billing Provider: MAURA CARVALHO MD Common Visit Codes: [id number] INP/OBS CARE(MOD) MAURA CARVALHO MD Feb 20, 2025 14:45
[2025-02-21] VITALS (16 sets, daily range): BP systolic 109–158; BP diastolic 62–100; PULSE 82–112; RESP 16–25; TEMP 97.7–98.4; O2SAT 90–100
[2025-02-21 07:39] LABS: Potassium 4.2 mmol/L (3.5-5.1)
[2025-02-21 07:40] LABS: Anion Gap 7 (5-15)
[2025-02-21 07:42] LABS: Hematocrit 41.2 % (36.0-46.0); Hemoglobin 13.3 g/dL (12.2-16.2); Mean Corpuscular Hemoglobin 26.9 pg (28.0-32.0); Mean Corpuscular Hgb Conc. 32.4 g/dL (32.0-36.0); Mean Corpuscular Volume 83.1 fL (80.0-100.0); Red Blood Cells 4.96 10^6/uL (4.0-5.20); Red Cell Distribution Width 15.5 % (11.8-14.3)
[2025-02-21 07:43] LABS: Platelet Count (auto) 505 10^3/uL (140-450)
[2025-02-21 07:45] LABS: BUN/Creatinine Ratio 24.3 (10.0-20.0); Blood Urea Nitrogen 17 mg/dL (9-23); Glucose 105 mg/dL (74-106)
[2025-02-21 07:47] LABS: Carbon Dioxide 33 mmol/L (20-31); Chloride 93 mmol/L (98-107); Sodium 133 mmol/L (136-145)
[2025-02-21 07:50] LABS: White Blood Cell 30.2 10^3/uL (4.4-10.8)
[2025-02-21 07:51] LABS: Band Neutrophils % (manual) 0; Basophils % (manual) 0 (0.0-2.0); Blast Cells 0; Eosinophils % (manual) 0 (0-7); Metamyelocytes % 0; Myelocytes % 0; Promyelocytes % 0; Reactive Lymphocytes 0
[2025-02-21 09:03] LABS: Lymphocytes % (manual) 6 (10.0-50.0); Monocytes % (manual) 11 (0-12); Platelet Estimate Increased
--- NOTE | 2025-02-21 11:26 | DVH ---
EXAM: XY CHEST PORTABLE Indication: HIGH WBC Technique: Single frontal view of the chest was obtained Comparison: XY CHEST XRAY 1 VIEW on DOS: 02/17/25, XY CHEST PORTABLE on DOS: 01/24/24, XY CHEST PORTABL E on DOS: 01/23/24, XY CHEST PORTABLE on DOS: 01/21/24, CHEST PORTABLE on DOS: 01/09/23 FINDINGS: Lines and Tubes: None Lungs: Diffuse interstitial opacities . multiple nodules are visualized in the right lung. Pleura: No effusion. No pneumothorax. Cardiomediastinal contours: Unremarkable Bones: No acute osseous abnormality. IMPRESSION: Diffuse interstitial opacities suggestive of pulmonary fibrosis. Superimposed infection can not be ex cluded Multiple nodules are visualized in the right lung.
[2025-02-21 13:40] LABS: Hematocrit 42.5 % (36.0-46.0); Hemoglobin 13.5 g/dL (12.2-16.2); Mean Corpuscular Hemoglobin 26.8 pg (28.0-32.0); Mean Corpuscular Hgb Conc. 31.8 g/dL (32.0-36.0); Mean Corpuscular Volume 84.3 fL (80.0-100.0); Platelet Count (auto) 493 10^3/uL (140-450); Red Blood Cells 5.04 10^6/uL (4.0-5.20); Red Cell Distribution Width 15.7 % (11.8-14.3)
[2025-02-21 13:43] LABS: White Blood Cell 31.1 10^3/uL (4.4-10.8)
[2025-02-21 13:45] LABS: Band Neutrophils % (manual) 0; Basophils % (manual) 0 (0.0-2.0); Blast Cells 0; Eosinophils % (manual) 0 (0-7); Metamyelocytes % 0; Myelocytes % 0; Promyelocytes % 0; Reactive Lymphocytes 0
--- NOTE | 2025-02-21 13:47 | DVHPN2 ---
Subjective Seen and examined at bedside. WBC trending up, will add Zyvox. Cont to monitor Reviewed: Care Plan Changes from previous H/P or p: No Changes General: Per HPI Objective Vitals Vital Signs Date Time Temp Pulse Resp B/P (MAP) Pulse Ox O2 Delivery O2 Flow Rate FiO2 02/21/25 13:41 112 20 99 02/21/25 13:31 Nasal Cannula 2.0 02/21/25 13:31 28 02/21/25 13:17 97.9 122/76 (91) 97.9 Intake/Output Intake and Output 02/21/25 06:59 Intake Total 1925 ml Output Total 6 ml Balance 1919 ml Intake Oral 1625 ml IV Total 300 ml Output Urine Total 6 ml # Bowel Movements 2 General Appearance: Alert, Oriented X3, Cooperative, No acute distress HEENT: Atraumatic Neck: Carotid Bruits [place] Lungs: Other Cardiovascular: Regular rate, Normal S1, Normal S2 Abdomen: Normal bowel sounds, Soft Rectal: Deferred Psych/Mental Status: Mental status NL Medications Current Medications Medications Dose Ordered Sig/[place] Route Start Time Stop Time Status Last Admin Dose Admin Albuterol 2.5 mg Q6HPRN PRN NEB 02/14/25 19:15 02/21/25 13:31 2.5 MG Ipratropium [place] 0.5 mg Q6HPRN PRN NEB 02/14/25 19:15 02/21/25 13:30 0.5 MG Ondansetron HCl 4 mg Q4HP PRN IV 02/14/25 19:15 Enoxaparin Sodium 40 mg DAILY SC 02/15/25 10:00 02/21/25 08:57 40 MG Acetaminophen 650 mg Q6HP PRN PO 02/14/25 19:15 02/19/25 01:33 650 MG Furosemide 20 mg DAILY IV 02/16/25 10:00 02/21/25 08:58 20 MG Acetylcysteine 200 mg Q8HR NEB 02/16/25 14:00 02/21/25 13:31 200 MG Doxycycline Hyclate 100 ml @ 50 mls/hr Q12H IV 02/17/25 13:00 02/21/25 13:27 50 MLS/HR Guaifenesin/ Dextromethorphan 10 ml Q4HP PRN PO 02/18/25 18:00 02/21/25 13:28 10 ML Throat Lozenges 1 zana Q2HP PRN MT 02/19/25 13:30 02/20/25 09:56 1 ZANA Cefepime HCl 50 ml @ 12.5 mls/hr Q12HR IV 02/19/25 22:00 02/21/25 08:57 12.5 MLS/HR Linezolid 600 mg BID PO 02/21/25 22:00 UNV Laboratory Results Laboratory Tests 02/21/25 06:35 02/21/25 13:20 Chemistry Test 02/21/25 06:35 Calcium Level 9.0 mg/dL (8.7-10.4) Urinalysis Test 02/16/25 07:35 Urine Color Light-yellow (Yellow) Urine Clarity Clear (Clear) Urine pH 6.0 (5.0-9.0) Urine Specific [place] 1.021 (1.001-1.035) Urine Protein Negative (Negative) Urine Ketones Negative (Negative) Urine Blood Negative /uL (Negative) Urine Nitrite Negative (Negative) Urine Bilirubin Negative (Negative) Urine Urobilinogen Normal mg/dL (Negative) Urine Leukocyte Esterase Negative /uL (Negative) Urine RBC None seen /hpf (0 - 4) Urine Microscopic WBC 1 /HPF (0-5) Urine Squamous Epithelial Cells Few /hpf (<5) Urine Bacteria None seen /hpf (None Seen) Urine Mucus Few (None Seen) Urine Glucose Normal mg/dL (Normal) Microbiology Microbiology Date/Time Source Procedure Growth Status 02/17/25 13:11 Lung Pending Resulted 02/17/25 13:11 Lung Pending Resulted 02/17/25 13:11 Lung Pending Resulted 02/17/25 13:11 Lung Pending Resulted 02/17/25 13:11 Lung - Final See Separate Report... Resulted 02/17/25 13:11 Bronchial Washings Gram Stain - Final Complete 02/17/25 13:11 Respiratory Culture - Final Pseudomonas aeruginosa Complete 02/14/25 19:24 Blood Blood Culture - Final NO GROWTH AFTER 5 DAYS OF INCUBATION. Complete Assessment/Plan Assessment/Plan Multifocal pneumonia, Pseudomonas - Abx, CT Chest reviewed. s/p Bronchoscopy. Needs IV Abx x 14 days+ Zyvox Hypertension - Monitor and adjust meds as needed COPD with exacerbation Plan discussed with: Patient My Orders Orders - MAURA CARVALHO MD Procedure Category Date Status Time * Formula Technician CONS 02/20/25 Transmitted Consult 16:02 Chest Portable XY 02/21/25 Resulted 10:11 Blood Culture HERMAN 02/21/25 In Process 10:11 Complete Blood Count LAB 02/21/25 In Process 11:13 Linezolid Tablet PHA 02/21/25 Logged (Zyvox Tablet) 22:00 Manual Differential LAB 02/21/25 In Process 13:20 Date of Service: Feb 21, 2025 Billing Provider: MAURA CARVALHO MD Common Visit Codes: [id number] INP/OBS CARE(HIGH) MAURA CARVALHO MD Feb 21, 2025 13:47
[2025-02-21 14:18] LABS: Lymphocytes % (manual) 2 (10.0-50.0); Monocytes % (manual) 6 (0-12)
[2025-02-21 14:19] LABS: Platelet Estimate Increased
[2025-02-21] MEDS: LINEZOLID 600MG TABLET PO SCH (21:46)
[2025-02-22] VITALS (13 sets, daily range): BP systolic 117–135; BP diastolic 69–81; PULSE 77–116; RESP 17–22; TEMP 97.9–98.7; O2SAT 3–100
--- NOTE | 2025-02-22 16:03 | DVHPN2 ---
Subjective Seen and examined at bedside. On 2Liters oxygen. Reviewed: Care Plan Changes from previous H/P or p: No Changes General: Per HPI Objective Vitals Vital Signs Date Time Temp Pulse Resp B/P (MAP) Pulse Ox O2 Delivery O2 Flow Rate FiO2 02/22/25 14:24 110 19 100 02/22/25 14:18 Nasal Cannula* 1 24 02/22/25 09:28 117/69 02/22/25 08:41 98.2 98.2 Intake/Output Intake and Output 02/22/25 07:00 Intake Total 2530 ml Balance 2530 ml Intake Oral 2380 ml IV Total 150 ml # Voids 7 # Bowel Movements 2 General Appearance: Alert, Oriented X3, Cooperative, No acute distress HEENT: Atraumatic Neck: Carotid [place] Lungs: Other Cardiovascular: Regular rate, Normal S1, Normal S2 Abdomen: Normal bowel sounds, Soft Rectal: Deferred Psych/Mental Status: Mental status NL Medications Current Medications Medications Dose Ordered Sig/[place] Route Start Time Stop Time Status Last Admin Dose Admin Albuterol 2.5 mg Q6HPRN PRN NEB 02/14/25 19:15 02/22/25 14:18 2.5 MG Ipratropium [place] 0.5 mg Q6HPRN PRN NEB 02/14/25 19:15 02/21/25 22:30 0.5 MG Ondansetron HCl 4 mg Q4HP PRN IV 02/14/25 19:15 Enoxaparin Sodium 40 mg DAILY SC 02/15/25 10:00 02/22/25 09:30 40 MG Acetaminophen 650 mg Q6HP PRN PO 02/14/25 19:15 02/19/25 01:33 650 MG Furosemide 20 mg DAILY IV 02/16/25 10:00 02/22/25 09:28 20 MG Acetylcysteine 200 mg Q8HR NEB 02/16/25 14:00 02/22/25 14:18 200 MG Doxycycline Hyclate 100 ml @ 50 mls/hr Q12H IV 02/17/25 13:00 02/22/25 14:35 50 MLS/HR Guaifenesin/ Dextromethorphan 10 ml Q4HP PRN PO 02/18/25 18:00 02/21/25 22:34 10 ML Throat Lozenges 1 zana Q2HP PRN MT 02/19/25 13:30 02/21/25 22:34 1 ZANA Cefepime HCl 50 ml @ 12.5 mls/hr Q12HR IV 02/19/25 22:00 02/22/25 09:28 12.5 MLS/HR Linezolid 600 mg BID PO 02/21/25 22:00 02/22/25 09:29 600 MG Laboratory Results Laboratory Tests 02/21/25 06:35 02/21/25 13:20 Urinalysis Test 02/16/25 07:35 Urine Color Light-yellow (Yellow) Urine Clarity Clear (Clear) Urine pH 6.0 (5.0-9.0) Urine Specific [place] 1.021 (1.001-1.035) Urine Protein Negative (Negative) Urine Ketones Negative (Negative) Urine Blood Negative /uL (Negative) Urine Nitrite Negative (Negative) Urine Bilirubin Negative (Negative) Urine Urobilinogen Normal mg/dL (Negative) Urine Leukocyte Esterase Negative /uL (Negative) Urine RBC None seen /hpf (0 - 4) Urine Microscopic WBC 1 /HPF (0-5) Urine Squamous Epithelial Cells Few /hpf (<5) Urine Bacteria None seen /hpf (None Seen) Urine Mucus Few (None Seen) Urine Glucose Normal mg/dL (Normal) Microbiology Microbiology Date/Time Source Procedure Growth Status 02/21/25 11:07 Blood Blood Culture - Preliminary NO GROWTH AFTER 24 HOURS OF INCUBATION. Resulted 02/17/25 13:11 Lung - Final Resulted 02/17/25 13:11 Lung - Final Resulted 02/17/25 13:11 Lung Pending Resulted 02/17/25 13:11 Lung Pending Resulted 02/17/25 13:11 Lung - Final See Separate Report... Resulted 02/17/25 13:11 Bronchial Washings Gram Stain - Final Complete 02/17/25 13:11 Respiratory Culture - Final Pseudomonas aeruginosa Complete Assessment/Plan Assessment/Plan Multifocal pneumonia, Pseudomonas - Abx, CT Chest reviewed. s/p Bronchoscopy. Needs IV Abx x 14 days+ Zyvox Hypertension - Monitor and adjust meds as needed COPD with exacerbation Plan discussed with: Patient My Orders Orders - MAURA CARVALHO MD Procedure Category Date Status Time Complete Blood Count LAB 02/23/25 Verified 04:00 Comprehensive LAB 02/23/25 Verified Metabolic Panel 04:00 Date of Service: Feb 22, 2025 Billing Provider: MAURA CARVALHO MD Common Visit Codes: [id number] INP/OBS CARE(HIGH) MAURA CARVALHO MD Feb 22, 2025 16:02
[2025-02-23] VITALS (15 sets, daily range): BP systolic 95–120; BP diastolic 68–72; PULSE 68–104; RESP 15–20; TEMP 97.6–98.6; O2SAT 90–100
[2025-02-23 06:51] LABS: Hematocrit 38.1 % (36.0-46.0); Hemoglobin 12.5 g/dL (12.2-16.2); Mean Corpuscular Hgb Conc. 32.7 g/dL (32.0-36.0); Mean Corpuscular Volume 82.6 fL (80.0-100.0); Red Blood Cells 4.62 10^6/uL (4.0-5.20); Red Cell Distribution Width 15.2 % (11.8-14.3); White Blood Cell 25.4 10^3/uL (4.4-10.8)
[2025-02-23 06:54] LABS: Alanine Aminotransferase 25 U/L (7-40); Albumin 3.4 g/dL (3.2-4.8); Alkaline Phosphatase 104 U/L (46-116); Anion Gap 8 (5-15); Aspartate Aminotransferase 19 U/L (13-40); BUN/Creatinine Ratio 25.9 (10.0-20.0); Bilirubin, Total 0.8 mg/dL (0.2-1.0); Blood Urea Nitrogen 15 mg/dL (9-23); Calcium 8.8 mg/dL (8.7-10.4); Carbon Dioxide 29 mmol/L (20-31); Glucose 100 mg/dL (74-106); Total Protein 6.4 g/dL (5.7-8.2)
[2025-02-23 06:55] LABS: Chloride 95 mmol/L (98-107); Sodium 132 mmol/L (136-145)
[2025-02-23 07:03] LABS: Platelet Count (auto) 451 10^3/uL (140-450)
[2025-02-23 07:04] LABS: Band Neutrophils % (manual) 0; Basophils % (manual) 0 (0.0-2.0); Blast Cells 0; Eosinophils % (manual) 0 (0-7); Metamyelocytes % 0; Myelocytes % 0; Promyelocytes % 0; Reactive Lymphocytes 0
[2025-02-23 08:50] LABS: Lymphocytes % (manual) 6 (10.0-50.0); Monocytes % (manual) 8 (0-12); Platelet Estimate Increased
--- NOTE | 2025-02-23 14:05 | DVHPN2 ---
Subjective Seen and examined at bedside. On 1Liters oxygen. WBC still elevated. Reviewed: Care Plan Changes from previous H/P or p: No Changes General: Per HPI Objective Vitals Vital Signs Date Time Temp Pulse Resp B/P (MAP) Pulse Ox O2 Delivery O2 Flow Rate FiO2 02/23/25 12:37 98.1 97 15 109/68 (82) 93 98.1 02/23/25 09:53 Nasal Cannula 1.0 02/23/25 09:53 24 Intake/Output Intake and Output 02/23/25 06:59 Intake Total 1560 ml Balance 1560 ml Intake Oral 1260 ml IV Total 300 ml # Voids 4 # Bowel Movements 1 General Appearance: Alert, Oriented X3, Cooperative, No acute distress HEENT: Atraumatic Neck: Carotid [place] Lungs: Other Cardiovascular: Regular rate, Normal S1, Normal S2 Abdomen: Normal bowel sounds, Soft Rectal: Deferred Psych/Mental Status: Mental status NL Medications Current Medications Medications Dose Ordered Sig/[place] Route Start Time Stop Time Status Last Admin Dose Admin Albuterol 2.5 mg Q6HPRN PRN NEB 02/14/25 19:15 02/23/25 07:29 2.5 MG Ipratropium [place] 0.5 mg Q6HPRN PRN NEB 02/14/25 19:15 02/23/25 07:29 0.5 MG Ondansetron HCl 4 mg Q4HP PRN IV 02/14/25 19:15 Enoxaparin Sodium 40 mg DAILY SC 02/15/25 10:00 02/23/25 10:11 40 MG Acetaminophen 650 mg Q6HP PRN PO 02/14/25 19:15 02/19/25 01:33 650 MG Furosemide 20 mg DAILY IV 02/16/25 10:00 02/23/25 10:09 20 MG Acetylcysteine 200 mg Q8HR NEB 02/16/25 14:00 02/23/25 07:29 200 MG Doxycycline Hyclate 100 ml @ 50 mls/hr Q12H IV 02/17/25 13:00 02/23/25 01:00 50 MLS/HR Guaifenesin/ Dextromethorphan 10 ml Q4HP PRN PO 02/18/25 18:00 02/22/25 21:28 10 ML Throat Lozenges 1 zana Q2HP PRN MT 02/19/25 13:30 02/21/25 22:34 1 ZANA Cefepime HCl 50 ml @ 12.5 mls/hr Q12HR IV 02/19/25 22:00 02/23/25 10:10 12.5 MLS/HR Linezolid 600 mg BID PO 02/21/25 22:00 02/23/25 10:09 600 MG Laboratory Results Laboratory Tests 02/23/25 04:56 Chemistry Test 02/23/25 04:56 Albumin 3.4 g/dL (3.2-4.8) Calcium Level 8.8 mg/dL (8.7-10.4) Total Protein 6.4 g/dL (5.7-8.2) LFT Test 02/23/25 04:56 Alanine Aminotransferase (ALT) 25 U/L (7-40) Alkaline Phosphatase 104 U/L (46-116) Aspartate Amino Transferase (AST) 19 U/L (13-40) Total Bilirubin 0.8 mg/dL (0.2-1.0) Urinalysis Test 02/16/25 07:35 Urine Color Light-yellow (Yellow) Urine Clarity Clear (Clear) Urine pH 6.0 (5.0-9.0) Urine Specific [place] 1.021 (1.001-1.035) Urine Protein Negative (Negative) Urine Ketones Negative (Negative) Urine Blood Negative /uL (Negative) Urine Nitrite Negative (Negative) Urine Bilirubin Negative (Negative) Urine Urobilinogen Normal mg/dL (Negative) Urine Leukocyte Esterase Negative /uL (Negative) Urine RBC None seen /hpf (0 - 4) Urine Microscopic WBC 1 /HPF (0-5) Urine Squamous Epithelial Cells Few /hpf (<5) Urine Bacteria None seen /hpf (None Seen) Urine Mucus Few (None Seen) Urine Glucose Normal mg/dL (Normal) Microbiology Microbiology Date/Time Source Procedure Growth Status 02/21/25 11:07 Blood Blood Culture - Preliminary NO GROWTH AFTER 48 HOURS OF INCUBATION. Resulted 02/17/25 13:11 Lung - Final Resulted 02/17/25 13:11 Lung - Final Resulted 02/17/25 13:11 Lung Pending Resulted 02/17/25 13:11 Lung Pending Resulted 02/17/25 13:11 Lung - Final See Separate Report... Resulted 02/17/25 13:11 Bronchial Washings Gram Stain - Final Complete 02/17/25 13:11 Respiratory Culture - Final Pseudomonas aeruginosa Complete Assessment/Plan Assessment/Plan Multifocal pneumonia, Pseudomonas - Abx, CT Chest reviewed. s/p Bronchoscopy. Needs IV Abx x 14 days+ Zyvox Hypertension - Monitor and adjust meds as needed COPD with exacerbation Plan discussed with: Patient My Orders Orders - MAURA CARVALHO MD Procedure Category Date Status Time Complete Blood Count LAB 02/24/25 Verified 04:00 Comprehensive LAB 02/24/25 Verified Metabolic Panel 04:00 Date of Service: Feb 23, 2025 Billing Provider: MAURA CARVALHO MD Common Visit Codes: [id number] INP/OBS CARE(MOD) MAURA CARVALHO MD Feb 23, 2025 14:05
[2025-02-24] VITALS (14 sets, daily range): BP systolic 106–139; BP diastolic 71–84; PULSE 67–105; RESP 16–22; TEMP 98.2–98.7; O2SAT 91–100
[2025-02-24 06:36] LABS: Basophils # (auto) 0.1 10 ^3/uL (0-0.2); Eosinophils # (auto) 0.1 10 ^3/uL (0-0.8); Lymphocytes # (auto) 1.7 10 ^3/uL (0.4-5.4); Lymphocytes % (auto) 8.4 % (10.0-50.0); Monocytes # (auto) 1.8 10 ^3/uL (0-1.3); Neutrophils # (auto) 17.1 10 ^3/uL (1.6-8.6)
[2025-02-24 06:43] LABS: Basophils % (auto) 0.2 % (0.0-2.0); Eosinophils % (auto) 0.5 % (0.0-7.0); Hematocrit 37.5 % (36.0-46.0); Mean Corpuscular Hemoglobin 26.8 pg (28.0-32.0); Mean Corpuscular Volume 83.7 fL (80.0-100.0); Monocytes % (auto) 8.7 % (0.0-12.0); Neutrophils % (auto) 82.2 % (37.0-80.0); Platelet Count (auto) 438 10^3/uL (140-450); Red Blood Cells 4.48 10^6/uL (4.0-5.20); Red Cell Distribution Width 15.4 % (11.8-14.3); White Blood Cell 20.9 10^3/uL (4.4-10.8)
[2025-02-24 06:52] LABS: Potassium 3.8 mmol/L (3.5-5.1)
[2025-02-24 06:59] LABS: Calcium 8.8 mg/dL (8.7-10.4)
[2025-02-24 07:02] LABS: Alkaline Phosphatase 111 U/L (46-116); Chloride 98 mmol/L (98-107); Sodium 131 mmol/L (136-145)
[2025-02-24 07:04] LABS: Alanine Aminotransferase 32 U/L (7-40); BUN/Creatinine Ratio 21.9 (10.0-20.0); Blood Urea Nitrogen 14 mg/dL (9-23); Total Protein 6.4 g/dL (5.7-8.2)
[2025-02-24 07:05] LABS: Glucose 109 mg/dL (74-106)
[2025-02-24 07:06] LABS: Albumin 3.3 g/dL (3.2-4.8); Aspartate Aminotransferase 36 U/L (13-40); Bilirubin, Total 0.7 mg/dL (0.2-1.0)
[2025-02-24 07:44] LABS: Anion Gap 7 (5-15); Carbon Dioxide 26 mmol/L (20-31)
--- NOTE | 2025-02-24 17:15 | DVHPN2 ---
Subjective Feels okay Reviewed: Care Plan, H&P, Labs, Medications, Previous Orders, Radiology Changes from previous H/P or p: No Changes Objective Vitals Vital Signs Date Time Temp Pulse Resp B/P (MAP) Pulse Ox O2 Delivery O2 Flow Rate FiO2 02/24/25 17:00 98.3 81 20 116/76 (89) 97 98.3 02/24/25 14:18 Room Air* 0 21 Intake/Output Intake and Output 02/24/25 07:00 Intake Total 960 ml Output Total 350 ml Balance 610 ml Intake Oral 660 ml IV Total 300 ml Output Urine Total 350 ml # Voids 3 # Bowel Movements 2 General Appearance: Alert, Oriented X3, Cooperative, No acute distress HEENT: Atraumatic Lungs: Other (Crackles and rhonchi bilateral lungs with some wheezes) Cardiovascular: Regular rate Abdomen: Normal bowel sounds, Soft, No tenderness Psych/Mental Status: Mental status NL Medications Current Medications Medications Dose Ordered Sig/[place] Route Start Time Stop Time Status Last Admin Dose Admin Albuterol 2.5 mg Q6HPRN PRN NEB 02/14/25 19:15 02/24/25 14:18 2.5 MG Ipratropium [place] 0.5 mg Q6HPRN PRN NEB 02/14/25 19:15 02/23/25 19:26 0.5 MG Ondansetron HCl 4 mg Q4HP PRN IV 02/14/25 19:15 Enoxaparin Sodium 40 mg DAILY SC 02/15/25 10:00 02/24/25 11:58 40 MG Acetaminophen 650 mg Q6HP PRN PO 02/14/25 19:15 02/19/25 01:33 650 MG Furosemide 20 mg DAILY IV 02/16/25 10:00 02/24/25 12:09 20 MG Acetylcysteine 200 mg Q8HR NEB 02/16/25 14:00 02/24/25 14:18 200 MG Doxycycline Hyclate 100 ml @ 50 mls/hr Q12H IV 02/17/25 13:00 02/24/25 15:01 50 MLS/HR Guaifenesin/ Dextromethorphan 10 ml Q4HP PRN PO 02/18/25 18:00 02/23/25 14:55 10 ML Throat Lozenges 1 zana Q2HP PRN MT 02/19/25 13:30 02/21/25 22:34 1 ZANA Cefepime HCl 50 ml @ 12.5 mls/hr Q12HR IV 02/19/25 22:00 02/24/25 11:58 12.5 MLS/HR Linezolid 600 mg BID PO 02/21/25 22:00 02/24/25 11:58 600 MG Laboratory Results Laboratory Tests 02/24/25 06:03 Chemistry Test 02/24/25 06:03 Albumin 3.3 g/dL (3.2-4.8) Calcium Level 8.8 mg/dL (8.7-10.4) Total Protein 6.4 g/dL (5.7-8.2) LFT Test 02/24/25 06:03 Alanine Aminotransferase (ALT) 32 U/L (7-40) Alkaline Phosphatase 111 U/L (46-116) Aspartate Amino Transferase (AST) 36 U/L (13-40) Total Bilirubin 0.7 mg/dL (0.2-1.0) Urinalysis Test 02/16/25 07:35 Urine Color Light-yellow (Yellow) Urine Clarity Clear (Clear) Urine pH 6.0 (5.0-9.0) Urine Specific [place] 1.021 (1.001-1.035) Urine Protein Negative (Negative) Urine Ketones Negative (Negative) Urine Blood Negative /uL (Negative) Urine Nitrite Negative (Negative) Urine Bilirubin Negative (Negative) Urine Urobilinogen Normal mg/dL (Negative) Urine Leukocyte Esterase Negative /uL (Negative) Urine RBC None seen /hpf (0 - 4) Urine Microscopic WBC 1 /HPF (0-5) Urine Squamous Epithelial Cells Few /hpf (<5) Urine Bacteria None seen /hpf (None Seen) Urine Mucus Few (None Seen) Urine Glucose Normal mg/dL (Normal) Microbiology Microbiology Date/Time Source Procedure Growth Status 02/21/25 11:07 Blood Blood Culture - Preliminary NO GROWTH AFTER 72 HOURS OF INCUBATION. Resulted 02/17/25 13:11 Lung - Final Resulted 02/17/25 13:11 Lung - Final Resulted 02/17/25 13:11 Lung Pending Resulted 02/17/25 13:11 Lung Pending Resulted 02/17/25 13:11 Lung - Final See Separate Report... Resulted 02/17/25 13:11 Bronchial Washings Gram Stain - Final Complete 02/17/25 13:11 Respiratory Culture - Final Pseudomonas aeruginosa Complete Assessment/Plan Assessment/Plan Bilateral multifocal pneumonia with Pseudomonas aeruginosa COPD exacerbation Hypertension Leukocytosis/sepsis Plan: We will add steroids. Continue antibiotics. Further plan per orders Plan discussed with: Patient, Other Date of Service: Feb 24, 2025 Billing Provider: YAJAIRA NORTON MD Common Visit Codes: [id number] INP/OBS CARE(HIGH) YAJAIRA NORTON MD Feb 24, 2025 17:15
--- NOTE | 2025-02-24 18:46 | DVH ---
CHEST RADIOGRAPH Indication: fu Technique: Single frontal view of the chest was obtained Comparison: XY CHEST PORTABLE on DOS: 02/21/25, XY CHEST XRAY 1 VIEW on DOS: 02/17/25, XY CHEST PORTABL E on DOS: 01/24/24 FINDINGS: Lines and Tubes: None Lungs: Unimproved findings from 02/21/2025. Findings appear new compared to 24 January 2024. Can not exclude pulmonary metastases Pleura: No effusion. No pneumothorax. Cardiomediastinal contours: Unremarkable Bones: No acute osseous abnormality. IMPRESSION: 1. Prominent bilateral pulmonary interstitial disease and nodular densities bilaterally. Findings may represent pulmonary metastasis. 2. These findings were not present on prior chest x-ray of 01/24/2024 HS:Y
[2025-02-24] MEDS: predniSONE 20 MG TAB PO ONE (18:58)
[2025-02-25] VITALS (13 sets, daily range): BP systolic 112–132; BP diastolic 57–78; PULSE 79–96; RESP 17–22; TEMP 97.4–98.6; O2SAT 91–100
[2025-02-25] MEDS: predniSONE 20 MG TAB PO SCH (09:55)
[2025-02-25 09:57] LABS: Eosinophils # (auto) 0 10 ^3/uL (0-0.8); Mean Corpuscular Volume 83.7 fL (80.0-100.0); Monocytes # (auto) 0.9 10 ^3/uL (0-1.3)
[2025-02-25 10:01] LABS: Basophils # (auto) 0 10 ^3/uL (0-0.2); Basophils % (auto) 0.2 % (0.0-2.0); Eosinophils % (auto) 0.1 % (0.0-7.0); Hemoglobin 12.1 g/dL (12.2-16.2); Lymphocytes # (auto) 1.2 10 ^3/uL (0.4-5.4); Lymphocytes % (auto) 7.2 % (10.0-50.0); Mean Corpuscular Hemoglobin 26.6 pg (28.0-32.0); Mean Corpuscular Hgb Conc. 31.8 g/dL (32.0-36.0); Monocytes % (auto) 5.5 % (0.0-12.0); Neutrophils # (auto) 13.9 10 ^3/uL (1.6-8.6); Platelet Count (auto) 438 10^3/uL (140-450); Red Blood Cells 4.54 10^6/uL (4.0-5.20); Red Cell Distribution Width 15.3 % (11.8-14.3)
--- NOTE | 2025-02-25 16:30 | DVHPN2 ---
Subjective Feels better today Reviewed: Care Plan, H&P, Labs, Medications, Previous Orders, Radiology Changes from previous H/P or p: No Changes Objective Vitals Vital Signs Date Time Temp Pulse Resp B/P (MAP) Pulse Ox O2 Delivery O2 Flow Rate FiO2 02/25/25 14:44 85 18 94 02/25/25 14:44 Room Air 0.0 02/25/25 14:44 21 02/25/25 13:00 98.1 115/59 (77) 98.1 Intake/Output Intake and Output 02/25/25 07:00 Intake Total 1150 ml Output Total 600 ml Balance 550 ml Intake Oral 950 ml IV Total 200 ml Output Urine Total 600 ml # Voids 1 # Bowel Movements 1 General Appearance: Alert, Oriented X3, Cooperative, No acute distress HEENT: Atraumatic Lungs: Other (Less wheezes and rhonchi and better air entry today) Cardiovascular: Regular rate Abdomen: Normal bowel sounds, Soft, No tenderness Psych/Mental Status: Mental status NL Medications Current Medications Medications Dose Ordered Sig/[place] Route Start Time Stop Time Status Last Admin Dose Admin Albuterol 2.5 mg Q6HPRN PRN NEB 02/14/25 19:15 02/25/25 14:44 2.5 MG Ipratropium [place] 0.5 mg Q6HPRN PRN NEB 02/14/25 19:15 02/23/25 19:26 0.5 MG Ondansetron HCl 4 mg Q4HP PRN IV 02/14/25 19:15 Enoxaparin Sodium 40 mg DAILY SC 02/15/25 10:00 02/25/25 09:57 40 MG Acetaminophen 650 mg Q6HP PRN PO 02/14/25 19:15 02/19/25 01:33 650 MG Furosemide 20 mg DAILY IV 02/16/25 10:00 02/25/25 09:56 20 MG Acetylcysteine 200 mg Q8HR NEB 02/16/25 14:00 02/25/25 14:44 200 MG Doxycycline Hyclate 100 ml @ 50 mls/hr Q12H IV 02/17/25 13:00 02/25/25 13:00 50 MLS/HR Guaifenesin/ Dextromethorphan 10 ml Q4HP PRN PO 02/18/25 18:00 02/25/25 01:19 10 ML Throat Lozenges 1 zana Q2HP PRN MT 02/19/25 13:30 02/21/25 22:34 1 ZANA Cefepime HCl 50 ml @ 12.5 mls/hr Q12HR IV 02/19/25 22:00 02/25/25 09:56 12.5 MLS/HR Linezolid 600 mg BID PO 02/21/25 22:00 02/25/25 09:55 600 MG Prednisone 20 mg DAILY PO 02/25/25 10:00 02/25/25 09:55 20 MG Laboratory Results Laboratory Tests 02/24/25 06:03 02/25/25 09:37 Urinalysis Test 02/16/25 07:35 Urine Color Light-yellow (Yellow) Urine Clarity Clear (Clear) Urine pH 6.0 (5.0-9.0) Urine Specific [place] 1.021 (1.001-1.035) Urine Protein Negative (Negative) Urine Ketones Negative (Negative) Urine Blood Negative /uL (Negative) Urine Nitrite Negative (Negative) Urine Bilirubin Negative (Negative) Urine Urobilinogen Normal mg/dL (Negative) Urine Leukocyte Esterase Negative /uL (Negative) Urine RBC None seen /hpf (0 - 4) Urine Microscopic WBC 1 /HPF (0-5) Urine Squamous Epithelial Cells Few /hpf (<5) Urine Bacteria None seen /hpf (None Seen) Urine Mucus Few (None Seen) Urine Glucose Normal mg/dL (Normal) Microbiology Microbiology Date/Time Source Procedure Growth Status 02/21/25 11:07 Blood Blood Culture - Preliminary NO GROWTH AFTER 72 HOURS OF INCUBATION. Resulted 02/17/25 13:11 Lung - Final Resulted 02/17/25 13:11 Lung - Final Resulted 02/17/25 13:11 Lung Pending Resulted 02/17/25 13:11 Lung Pending Resulted 02/17/25 13:11 Lung - Final See Separate Report... Resulted 02/17/25 13:11 Bronchial Washings Gram Stain - Final Complete 02/17/25 13:11 Respiratory Culture - Final Pseudomonas aeruginosa Complete Assessment/Plan Assessment/Plan Bilateral multifocal pneumonia with Pseudomonas aeruginosa COPD exacerbation Hypertension Leukocytosis/sepsis Plan: Continue prednisone for now. White count continues to improve. Repeat x-ray for tomorrow. Plan discussed with: Patient My Orders Orders - YAJAIRA NORTON MD Procedure Category Date Status Time Prednisone Tablet PHA 02/25/25 In Process 10:00 Chest Portable XY 02/24/25 Resulted 17:16 Date of Service: Feb 25, 2025 Billing Provider: YAJAIRA NORTON MD Common Visit Codes: [id number] INP/OBS CARE(HIGH) YAJAIRA NORTON MD Feb 25, 2025 16:30
[2025-02-26] VITALS (13 sets, daily range): BP systolic 109–154; BP diastolic 72–88; PULSE 73–110; RESP 16–22; TEMP 97.5–98.1; O2SAT 92–99
[2025-02-26 06:17] LABS: Basophils # (auto) 0 10 ^3/uL (0-0.2); Eosinophils # (auto) 0 10 ^3/uL (0-0.8); Eosinophils % (auto) 0.2 % (0.0-7.0); Hemoglobin 11.9 g/dL (12.2-16.2); Lymphocytes # (auto) 2.2 10 ^3/uL (0.4-5.4); Mean Corpuscular Volume 83.4 fL (80.0-100.0)
[2025-02-26 06:19] LABS: Basophils % (auto) 0.2 % (0.0-2.0); Hematocrit 36.5 % (36.0-46.0); Lymphocytes % (auto) 13.7 % (10.0-50.0); Mean Corpuscular Hemoglobin 27.2 pg (28.0-32.0); Mean Corpuscular Hgb Conc. 32.6 g/dL (32.0-36.0); Monocytes # (auto) 1.2 10 ^3/uL (0-1.3); Monocytes % (auto) 7.4 % (0.0-12.0); Neutrophils # (auto) 12.7 10 ^3/uL (1.6-8.6); Neutrophils % (auto) 78.5 % (37.0-80.0); Nucleated Red Blood Cells % 0.1 %; Platelet Count (auto) 462 10^3/uL (140-450); Red Blood Cells 4.38 10^6/uL (4.0-5.20); Red Cell Distribution Width 15.2 % (11.8-14.3); White Blood Cell 16.2 10^3/uL (4.4-10.8)
--- NOTE | 2025-02-26 06:46 | DVH ---
CHEST RADIOGRAPH Indication: fu Technique: Single frontal view of the chest was obtained Comparison: XY CHEST PORTABLE on DOS: 02/24/25, XY CHEST PORTABLE on DOS: 02/21/25, XY CHEST XRAY 1 VIE W on DOS: 02/17/25 FINDINGS: Lines and Tubes: None Lungs: Diffuse bilateral interstitial and airspace opacities. Pleura: No effusion. No pneumothorax. Cardiomediastinal contours: Unremarkable Bones: No acute osseous abnormality. IMPRESSION: 1. No significant interval change.
--- NOTE | 2025-02-26 14:36 | DVHPN2 ---
Subjective Seen and examined at bedside. On room air. Possible DC tomorrow??? Reviewed: Care Plan, H&P, Labs, Medications, Previous Orders, Radiology Changes from previous H/P or p: No Changes Objective Vitals Vital Signs Date Time Temp Pulse Resp B/P (MAP) Pulse Ox O2 Delivery O2 Flow Rate FiO2 02/26/25 14:29 108 18 99 02/26/25 14:23 Room Air* 0 21 02/26/25 09:47 154/88 02/26/25 09:00 97.7 97.7 Intake/Output Intake and Output 02/26/25 06:59 Intake Total 1820 ml Balance 1820 ml Intake Oral 1520 ml IV Total 300 ml # Voids 2 # Bowel Movements 1 General Appearance: Alert, Oriented X3, Cooperative, No acute distress HEENT: Atraumatic Lungs: Other (Less wheezes and rhonchi and better air entry today) Cardiovascular: Regular rate Abdomen: Normal bowel sounds, Soft, No tenderness Psych/Mental Status: Mental status NL Medications Current Medications Medications Dose Ordered Sig/[place] Route Start Time Stop Time Status Last Admin Dose Admin Albuterol 2.5 mg Q6HPRN PRN NEB 02/14/25 19:15 02/26/25 14:23 2.5 MG Ipratropium [place] 0.5 mg Q6HPRN PRN NEB 02/14/25 19:15 02/26/25 14:23 0.5 MG Ondansetron HCl 4 mg Q4HP PRN IV 02/14/25 19:15 Acetaminophen 650 mg Q6HP PRN PO 02/14/25 19:15 02/26/25 01:49 650 MG Furosemide 20 mg DAILY IV 02/16/25 10:00 02/26/25 09:47 20 MG Acetylcysteine 200 mg Q8HR NEB 02/16/25 14:00 02/26/25 14:23 200 MG Doxycycline Hyclate 100 ml @ 50 mls/hr Q12H IV 02/17/25 13:00 02/26/25 14:30 50 MLS/HR Guaifenesin/ Dextromethorphan 10 ml Q4HP PRN PO 02/18/25 18:00 02/25/25 01:19 10 ML Throat Lozenges 1 zana Q2HP PRN MT 02/19/25 13:30 02/21/25 22:34 1 ZANA Cefepime HCl 50 ml @ 12.5 mls/hr Q12HR IV 02/19/25 22:00 02/26/25 09:46 12.5 MLS/HR Linezolid 600 mg BID PO 02/21/25 22:00 02/26/25 09:46 600 MG Prednisone 20 mg DAILY PO 02/25/25 10:00 02/26/25 09:46 20 MG Laboratory Results Laboratory Tests 02/24/25 06:03 02/26/25 04:50 Urinalysis Test 02/16/25 07:35 Urine Color Light-yellow (Yellow) Urine Clarity Clear (Clear) Urine pH 6.0 (5.0-9.0) Urine Specific [place] 1.021 (1.001-1.035) Urine Protein Negative (Negative) Urine Ketones Negative (Negative) Urine Blood Negative /uL (Negative) Urine Nitrite Negative (Negative) Urine Bilirubin Negative (Negative) Urine Urobilinogen Normal mg/dL (Negative) Urine Leukocyte Esterase Negative /uL (Negative) Urine RBC None seen /hpf (0 - 4) Urine Microscopic WBC 1 /HPF (0-5) Urine Squamous Epithelial Cells Few /hpf (<5) Urine Bacteria None seen /hpf (None Seen) Urine Mucus Few (None Seen) Urine Glucose Normal mg/dL (Normal) Microbiology Microbiology Date/Time Source Procedure Growth Status 02/21/25 11:07 Blood Blood Culture - Final NO GROWTH AFTER 5 DAYS OF INCUBATION. Complete 02/17/25 13:11 Lung - Final Resulted 02/17/25 13:11 Lung - Final Resulted 02/17/25 13:11 Lung Pending Resulted 02/17/25 13:11 Lung Pending Resulted 02/17/25 13:11 Lung - Final See Separate Report... Resulted 02/17/25 13:11 Bronchial Washings Gram Stain - Final Complete 02/17/25 13:11 Respiratory Culture - Final Pseudomonas aeruginosa Complete Assessment/Plan Assessment/Plan Multifocal pneumonia, Pseudomonas - Abx, CT Chest reviewed. s/p Bronchoscopy. Needs IV Abx x 14 days+ Zyvox Hypertension - Monitor and adjust meds as needed COPD with exacerbation Plan discussed with: Patient My Orders Orders - MAURA CARVALHO MD Procedure Category Date Status Time Complete Blood Count LAB 02/27/25 Verified 04:00 Basic Metabolic Panel LAB 02/27/25 Verified 04:00 Date of Service: Feb 26, 2025 Billing Provider: MAURA CARVALHO MD Common Visit Codes: [id number] INP/OBS CARE(HIGH) MAURA CARVALHO MD Feb 26, 2025 14:36
[2025-02-27] VITALS (13 sets, daily range): BP systolic 111–138; BP diastolic 64–86; PULSE 80–107; RESP 14–19; TEMP 97.4–98.1; O2SAT 94–100
[2025-02-27 06:08] LABS: Basophils # (auto) 0 10 ^3/uL (0-0.2); Basophils % (auto) 0.1 % (0.0-2.0); Eosinophils # (auto) 0 10 ^3/uL (0-0.8); Eosinophils % (auto) 0.2 % (0.0-7.0); Nucleated Red Blood Cells % 0.1 %
[2025-02-27 06:11] LABS: Hematocrit 40.5 % (36.0-46.0); Lymphocytes % (auto) 20.5 % (10.0-50.0); Mean Corpuscular Hemoglobin 26.9 pg (28.0-32.0); Mean Corpuscular Volume 83.9 fL (80.0-100.0); Monocytes # (auto) 1.1 10 ^3/uL (0-1.3); Monocytes % (auto) 7.7 % (0.0-12.0); Neutrophils # (auto) 10.6 10 ^3/uL (1.6-8.6); Neutrophils % (auto) 71.5 % (37.0-80.0); Platelet Count (auto) 524 10^3/uL (140-450); Red Blood Cells 4.83 10^6/uL (4.0-5.20); Red Cell Distribution Width 15.4 % (11.8-14.3); White Blood Cell 14.8 10^3/uL (4.4-10.8)
[2025-02-27 06:22] LABS: Anion Gap 7 (5-15); Carbon Dioxide 25 mmol/L (20-31); Chloride 100 mmol/L (98-107); Potassium 4.3 mmol/L (3.5-5.1)
[2025-02-27 06:23] LABS: Calcium 9.4 mg/dL (8.7-10.4)
[2025-02-27 06:25] LABS: Sodium 132 mmol/L (136-145)
[2025-02-27 06:28] LABS: Blood Urea Nitrogen 19 mg/dL (9-23)
[2025-02-27 06:32] LABS: Glucose 70 mg/dL (74-106)
[2025-02-27] MEDS ORDERED: LINE1TAB5 PO (11:44)
--- NOTE | 2025-02-27 11:48 | DVHDS2 ---
Discharge Summary Date of Admission Feb 14, 2025 at 19:08 Date of Discharge: Feb 27, 2025 Admitting Diagnosis Pneumonia Labs/Diagnostic Data: Laboratory Results Test 02/27/25 04:50 02/24/25 06:03 02/23/25 04:56 02/17/25 05:11 White Blood Count 14.8 10^3/uL (4.4-10.8) Red Blood Count 4.83 10^6/uL (4.0-5.20) Hemoglobin 13.0 g/dL (12.2-16.2) Hematocrit 40.5 % (36.0-46.0) Mean Corpuscular Volume 83.9 fL (80.0-100.0) Mean Corpuscular Hemoglobin 26.9 pg (28.0-32.0) Mean Corpuscular Hemoglobin Concent 32.0 g/dL (32.0-36.0) Red Cell Distribution Width 15.4 % (11.8-14.3) Platelet Count 524 10^3/uL (140-450) Mean Platelet Volume 8.3 fL (6.9-10.8) Neutrophils (%) (Auto) 71.5 % (37.0-80.0) Lymphocytes (%) (Auto) 20.5 % (10.0-50.0) Monocytes (%) (Auto) 7.7 % (0.0-12.0) Eosinophils (%) (Auto) 0.2 % (0.0-7.0) Basophils (%) (Auto) 0.1 % (0.0-2.0) Neutrophils # (Auto) 10.6 10 ^3/uL (1.6-8.6) Lymphocytes # (Auto) 3.0 10 ^3/uL (0.4-5.4) Monocytes # (Auto) 1.1 10 ^3/uL (0-1.3) Eosinophils # (Auto) 0 10 ^3/uL (0-0.8) Basophils # (Auto) 0 10 ^3/uL (0-0.2) Nucleated Red Blood Cells 0.1 % Sodium Level 132 mmol/L (136-145) Potassium Level 4.3 mmol/L (3.5-5.1) Chloride Level 100 mmol/L (98-107) Carbon Dioxide Level 25 mmol/L (20-31) Anion Gap 7 (5-15) Blood Urea Nitrogen 19 mg/dL (9-23) Creatinine 0.73 mg/dL (0.550-1.02) Glomerular Filtration Rate Calc 85 mL/min (>90) BUN/Creatinine Ratio 26.0 (10.0-20.0) Serum Glucose 70 mg/dL (74-106) Calcium Level 9.4 mg/dL (8.7-10.4) Total Bilirubin 0.7 mg/dL (0.2-1.0) Aspartate Amino Transferase (AST) 36 U/L (13-40) Alanine Aminotransferase (ALT) 32 U/L (7-40) Alkaline Phosphatase 111 U/L (46-116) Total Protein 6.4 g/dL (5.7-8.2) Albumin 3.3 g/dL (3.2-4.8) Differential Total Cells Counted 100.0 (100) Neutrophils % (Manual) 86 (37.0-80.0) Band Neutrophils % (Manual) 0 Lymphocytes % (Manual) 6 (10.0-50.0) Monocytes % (Manual) 8 (0-12) Eosinophils % (Manual) 0 (0-7) Basophils % (Manual) 0 (0.0-2.0) Metamyelocytes % (manual) 0 Myelocytes % (Manual) 0 Promyelocytes % (Manual) 0 Blast Cells % (Manual) 0 Reactive Lymphocytes 0 Platelet Estimate Increased Prothrombin Time 10.9 sec (9.3-11.8) Prothrombin Time INR 1.03 (0.9-1.15) Activated Partial Thromboplast Time 29.9 SEC (24.5-34.5) Test 02/16/25 07:35 02/16/25 04:46 02/15/25 05:44 02/14/25 19:24 Urine Color Light-yellow (Yellow) Urine Clarity Clear (Clear) Urine pH 6.0 (5.0-9.0) Urine Specific Cisco 1.021 (1.001-1.035) Urine Protein Negative (Negative) Urine Ketones Negative (Negative) Urine Blood Negative /uL (Negative) Urine Nitrite Negative (Negative) Urine Bilirubin Negative (Negative) Urine Urobilinogen Normal mg/dL (Negative) Urine Leukocyte Esterase Negative /uL (Negative) Urine RBC None seen /hpf (0 - 4) Urine Microscopic WBC 1 /HPF (0-5) Urine Squamous Epithelial Cells Few /hpf (<5) Urine Bacteria None seen /hpf (None Seen) Urine Mucus Few (None Seen) Urine Glucose Normal mg/dL (Normal) Large Platelets Few Hypochromasia (manual) Slight Anisocytosis (manual) Slight Lactic Acid Level 2.0 mmol/L (0.4-2.0) Test 02/14/25 18:20 02/14/25 14:36 Influenza Type A Antigen Negative (Negative) Influenza Type B Antigen Negative (Negative) SARS-CoV-2 Antigen (Rapid) Negative (NEGATIVE) B-Type Natriuretic Peptide 71.03 pg/mL (0-100) Other Laboratory Tests 02/27/25 04:50 Brief Hx & Hospital Course: 74 year old female presents for evaluation of shortness for breath. Patient was seen by her primary care provider who advised her to present to the emergency department to rule out possible pneumonia. Patient has been coughing over the past three days with yellow sputum and shortness for breath. Patient underwent CT Chest and Bronchoscopy. Patients cultures grew Pseudomonas therefore was started on Cefepime. Patient was also started on Zyvox. Patient will need to continue Cefepime and Zyvox at home. Home health was setup. Patient is now on room air, needs to followup with PCP Dr. Nelson and Pulmonary clinic, WBC trending down. Operations or Procedures Bronchoscopy procedure note: Indications: Bronchiectasis r/o MAC, Mucous plugging. Medicines: Fentanyl 25 mcg, Versed 2 mg, glycopyrrolate 0.2 mg, Benadryl 50 mg Complications: None Procedure: Patient medications and allergies reviewed. The risks and benefits of the procedure and the sedation options and risk were discussed with the patient. All questions were answered and informed consent was obtained. Patient identification and proposed procedure were verified prior to the procedure by the physician, and a nurse, and the respiratory therapist in ICU room. The heart rate, respiratory rate, oxygen saturations, blood pressure, adequacy of pulmonary ventilation, and response to care were monitored throughout the procedure. The physical status of the patient was reassessed after the procedure. After obtaining informed consent, the bronchoscope was introduced through the oropharynx and advanced into the trachea bronchial tree of both lungs. The procedure was accomplished without difficulty. The patient tolerated the procedure well. Findings: The trachea is in normal caliber. The jigar is sharp. The tracheobronchial tree of the right lung was examined to at least the first subsegmental level. The bronchial mucosa and anatomy in the right lung are normal. There are no endobronchial lesions. There was copious whitish secretions from right main stem bronchus onward throughout R1-R10. Right middle lobe (RML) Bronchoalveolar lavage (BAL) obtained. RML BAL sent for gram stain and culture, viral culture, fungal culture, and AFB smear and culture. The left upper lobe, lingula, and left lower lobe were examined to at least the first subsegmental level. Bronchial mucosa and anatomy in the left upper lobe and lingula are normal. There were no endobronchial lesions. There was copious whitish secretions from left main stem bronchus onward throughout L1-L5. Mucous plugging removed from L1-L5. Lingula Bronchoalveolar lavage (BAL) obtained. Lingula BAL sent for gram stain and culture, viral culture, fungal culture, and AFB smear and culture. There was no active bleeding at the completion of the procedure. Estimated blood loss: Less than 5 mL. Impression: Left lower lobe atelectasis due to mucous plugging Mucous plugging from L1-L5 RML BAL performed Lingula BAL performed Recommendation: Follow-up Lingular and RML BAL results. Procedure codes: 63738, bronchoscopy, rigid and flexible, including fluoroscopic guidance, one performed; with bronchial endobronchial broncho-alveolar lavage, single or multiple sites Condition at Discharge: Poor Final Diagnosis/Problems List Multifocal pneumonia, Pseudomonas - Abx, CT Chest reviewed. s/p Bronchoscopy. Needs IV Abx x 14 days+ Zyvox Hypertension - Monitor and adjust meds as needed COPD with exacerbation Discharge Disposition: Home Discharge Statement: "Patient was advised to return to the ER or call 911 if any headaches, dizziness, shortness of breath, chest pain, abdominal pain, bleeding, fevers, or worsening of medical condition. Patient was counseled about treatment plan, medications, possible side effects, patientverbalized understanding. All questions were answered to the best of my ability. This discharge took greater then 30 minutes in planning, reviewing documentation, counseling the patient, and discussing with other team members." ASSESSMENT ASSESSMENT Assessment Date of Service: Feb 27, 2025 Billing Provider: MAURA CARVALHO MD Common Visit Codes: 96221-GMT/OBS DISCH DAY >30min MAURA CARVALHO MD Feb 27, 2025 11:47
== END 2025-02-27 17:02 | disposition home health service (06) | DRG 871 ==
LOC: ER 14:02 → OVERFLOW 19:08 → WEST WING 21:44
PROVIDERS: ADMIT Internal Medicine; ATTEND Internal Medicine
PROC: 0B9D8ZX Drainage of Right Middle Lung Lobe, Via Natural or Artificial Opening Endoscopic, Diagnostic (ICD-10-PCS; 2025-02-17)
PROC: 0BC78ZZ Extirpation of Matter from Left Main Bronchus, Via Natural or Artificial Opening Endoscopic (ICD-10-PCS; 2025-02-17)
PROC: 0B9H8ZX Drainage of Lung Lingula, Via Natural or Artificial Opening Endoscopic, Diagnostic (ICD-10-PCS; principal; 2025-02-17 11:20)
PROC: 05HB33Z Insertion of Infusion Device into Right Basilic Vein, Percutaneous Approach (ICD-10-PCS; 2025-02-21)
PROC: B54MZZA Ultrasonography of Right Upper Extremity Veins, Guidance (ICD-10-PCS; 2025-02-21)
DX: A41.9 Sepsis, unspecified organism (principal); J15.1 Pneumonia due to Pseudomonas; J96.01 Acute respiratory failure with hypoxia; J47.0 Bronchiectasis with acute lower respiratory infection; Z68.1 Body mass index [BMI] 19.9 or less, adult; R64 Cachexia; J44.1 Chronic obstructive pulmonary disease with (acute) exacerbation; J44.0 Chronic obstructive pulmonary disease with (acute) lower respiratory infection; Z20.822 Contact with and (suspected) exposure to COVID-19; I10 Essential (primary) hypertension; Z83.3 Family history of diabetes mellitus; Z90.710 Acquired absence of both cervix and uterus; Z88.5 Allergy status to narcotic agent; Z79.899 Other long term (current) drug therapy; Z99.81 Dependence on supplemental oxygen
CPT/HCPCS: 31624; 36415; 71045; 71046; 71250; 80048; 80053; 81001; 83605; 83880; 85007; 85025; 85027; 85610; 85730; 87040; 87070; 87077; 87186; 87205; 87426; 87804; 93005; 94640; 96365; 96375; 97163; G0378; J0171; J0692; J1450; J2250

== ENCOUNTER → 2025-03-28 | Outpatient (CLI) | payer OTHER ==
[~2025-03-28] MED LIST changes: -DOXY100C4 PO; +FLUT1AER3 IN; +LINE1TAB5 PO
[2025-03-28 15:27] LABS: Basophils # (auto) 0.1 10 ^3/uL (0-0.2); Basophils % (auto) 1.2 % (0.0-2.0); Eosinophils # (auto) 0.1 10 ^3/uL (0-0.8); Hematocrit 38.4 % (36.0-46.0); Hemoglobin 12.4 g/dL (12.2-16.2); Lymphocytes # (auto) 1.9 10 ^3/uL (0.4-5.4); Lymphocytes % (auto) 21.3 % (10.0-50.0); Mean Corpuscular Hgb Conc. 32.3 g/dL (32.0-36.0); Mean Corpuscular Volume 83.5 fL (80.0-100.0); Monocytes # (auto) 0.7 10 ^3/uL (0-1.3); Monocytes % (auto) 7.7 % (0.0-12.0); Neutrophils % (auto) 68.8 % (37.0-80.0); Platelet Count (auto) 437 10^3/uL (140-450); Red Cell Distribution Width 17.5 % (11.8-14.3); White Blood Cell 8.7 10^3/uL (4.4-10.8)
[2025-03-28 15:45] LABS: % Iron Saturation 10.7 % (15-50)
[2025-03-28 16:08] LABS: Erythrocyte Sedimentation Rate 48 mm/hr (0-20)
== END | disposition home or self-care (01) ==
LOC: LAB 15:01
PROVIDERS: ATTEND Internal Medicine
DX: D75.839 Thrombocytosis, unspecified (principal); J47.9 Bronchiectasis, uncomplicated
CPT/HCPCS: 36415; 83540; 83550; 85025; 85652; 87070; 87205

== ENCOUNTER → 2025-07-05 | Outpatient (CLI) | payer OTHER ==
[2025-07-05 15:57] LABS: Hematocrit 39.3 % (36.0-46.0); Hemoglobin 12.7 g/dL (12.2-16.2); Mean Corpuscular Hemoglobin 26.3 pg (28.0-32.0); Mean Corpuscular Volume 81.8 fL (80.0-100.0); Nucleated Red Blood Cells % 0.0 %
[2025-07-05 16:20] LABS: Alanine Aminotransferase < 9 U/L (7-40); Albumin 4.4 g/dL (3.2-4.8); Alkaline Phosphatase 122 U/L (46-116); Anion Gap 7 (5-15); BUN/Creatinine Ratio 12.8 (10.0-20.0); Bilirubin, Total 0.3 mg/dL (0.2-1.0); Blood Urea Nitrogen 11 mg/dL (9-23); Calcium 9.1 mg/dL (8.7-10.4); Carbon Dioxide 29 mmol/L (20-31); Chloride 100 mmol/L (98-107); Glucose 116 mg/dL (74-106); Potassium 4.5 mmol/L (3.5-5.1); Sodium 136 mmol/L (136-145); Total Protein 7.8 g/dL (5.7-8.2)
== END | disposition home or self-care (01) ==
LOC: LAB 15:38
PROVIDERS: ATTEND Internal Medicine
DX: I10 Essential (primary) hypertension (principal); J44.0 Chronic obstructive pulmonary disease with (acute) lower respiratory infection
CPT/HCPCS: 36415; 80053; 85025

== ENCOUNTER 2025-08-11 10:24 | Emergency (ER) | payer OTHER ==
[~2025-08-11] VITALS: Ht 157.5 cm; Wt 45.0 kg
--- NOTE | 2025-08-11 10:45 | ECG ---
[facility] Test Date: 2025-08-11 Test Time: 10:44:48 Pat Name: SANTOS BATEMAN Department: [facility] ED Patient ID: [id number] Room: Gender: F Test Lab Technician: fam : 1950 Requested By: JOYCE VELIZ Order Number: [id number] Reading MD: Measurements Intervals Dexter Rate: 94 P: 84 IN: 142 QRS: 64 QRSD: 126 T: 83 QT: 350 QTc: 438 Interpretive Statements Sinus rhythm Atrial premature complex Probable left atrial enlargement Nonspecific intraventricular conduction delay Anteroseptal infarct, age indeterminate Lateral leads are also involved Please click the below link to view image of tracing.
--- NOTE | 2025-08-11 10:53 | ED.PDOC ---
SOB-HPI HPI Comments 75 y.o female presents to the ED for a chief complaint of SOB associated with dark phlegm, and a productive cough that started 3 days ago. Patient reports having flare ups due to chronic bronchitis, states she usually receives antibiotic treatment at the hospital and improves. Patient was told by PCP whenever she had these flare ups, to come into the ED for antibiotic care. Las regime was about 14 days ago. She denies any chest pain, nausea, vomiting, fe sheron, or chills. Upon ED arrival, patient's SPO2 was at 86% RA and was placed on 4 liters oxygen via NC increasing SPO2 to 91%/ Chief Complaint: Shortness of Breath Time Seen by MD: 10:36 Primary Care Provider: SHENA Reviewed notes: Nurses Notes, Medications, Allergies Information Source: Patient Mode of Arrival: Ambulatory Severity: Moderate Timing: Days (3) Duration: Since onset Context: At Rest History of: COPD Modifying Factors: Nothing Associated Signs and Symptoms: Cough If cough with SOB: Productive, Brown Past Medical History PAST MEDICAL HISTORY: COPD, HTN Past Medical History (Other): bronchitis Surgical History: Hysterectomy, Tubal Ligation 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 History: No Pertinent 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 History Family History Family History: Family hx of DM, Family hx of Cancer Social History Smoker: Non-Smoker Alcohol: Occasionally Drugs: Denies Drug Use Lives In: Home Constitutional: denies: chills, diaphoresis, fatigue, fever, malaise, sweats, weakness, others EENTM: denies: blurred vision, double vision, ear bleeding, ear discharge, ear drainage, ear pain, ear ringing, eye pain, eye redness, hearing loss, mouth pain, mouth swelling, nasal discharge, nose bleeding, nose congestion, nose pain, photophobia, tearing, throat pain, throat swelling, voice changes, others Respiratory: reports: cough, SOB at rest, shortness of breath, SOB with excertion; denies: hemoptysis, orthopnea, stridor, wheezing, others Cardiovascular: denies: chest pain, dizzy spells, diaphoresis, Dyspnea on exertion, edema, irregular heart beat, left arm pain, lightheadedness, palpitations, PND, syncope, others Gastrointestinal: denies: abdomen distended, abdominal pain, blood streaked bowels, constipated, diarrhea, dysphagia, difficulty swallowing, hematemesis, melena, nausea, poor appetite, poor fluid intake, rectal bleeding, rectal pain, vomiting, others Genitourinary: denies: abnormal vagina bleeding, burning, dyspareunia, dysuria, flank pain, frequency, hematuria, incontinence, pain, , vagina discharge, urgency, others Neurological: denies: dizziness, fainting, headache, left sided numbness, left sided weakness, numbness, paresthesia, pre-existing deficit, right sided numbness, right sided weakness, seizure, speech problems, tingling, tremors, weakness, others Musculoskeletal: denies: back pain, gout, joint pain, joint swelling, muscle pain, muscle stiffness, neck pain, others Integumetry: denies: bruises, change in color, change in hair/nails, dryness, laceration, lesions, lumps, rash, wounds, others Allergic/Immunocompromised: denies: Difficulty Healing, Frequent Infections, Hives, Itching, others Hematologic/Lymphatic: denies: anemia, blood clots, easy bleeding, easy bruising, swollen glands, others Endocrine: denies: excessive hunger, excessive sweating, excessive thirst, excessive urination, flushing, intolerance to cold, intolerance to heat, unexplained weight gain, unexplained weight loss, others Psychiatric: denies: anxiety, bipolar disorder, depression, hopeless, panic disorder, schizophrenia, sleepless, suicidal, others All Other Systems: Reviewed and Negative Physical Exam General Appearance: Moderate Distress, Thin HEENT: Normal ENT Inspection, Pharynx Normal, TMs Normal Neck: Full Range of Motion, Non-Tender, Normal, Normal Inspection Respiratory: Respiratory Distress, Wheezing Cardiovascular: No Edema, No JVD, No Murmur, No Gallop, Normal Peripheral Pulses, Regular Rate/Rhythm Breast Exam: Deferred Gastrointestinal: No Organomegaly, Non Tender, No Pulsatile Mass, Normal Bowel Sounds, Soft Genitalia: Deferred Pelvic: Deferred Rectal: Deferred Extremities: No calf tenderness, No pedal edema Musculoskeletal : Apperance: Normal Neurologic: Alert, No Motor Deficits, No Sensory Deficits Cerebellar Function: NOT DONE Reflexes: NOT DONE Skin: Dry, Normal Color, Warm Peripheral Pulses: 3+ Radial (R), 3+ Radial (L) Lymphatic: No Adenopathy Was a procedure done? Was a procedure done?: No Differential Dx Differential Diagnosis: Anxiety, Asthma, Bronchitis, CHF, COPD, Pneumonia, Respiratory Distress, URI X-Ray, Labs, Meds, VS Vital Signs Date Time Temp Pulse Resp B/P (MAP) Pulse Ox O2 Delivery O2 Flow Rate FiO2 08/11/25 12:05 94 18 95 Nasal Cannula* 2 28 08/11/25 12:05 97.9 94 18 135/91 (106) 95 97.9 08/11/25 11:30 18 100 Nasal Cannula* 2 28 08/11/25 10:44 94 08/11/25 10:30 98.1 99 24 121/84 91 98.1 Lab Test 08/11/25 12:11 08/11/25 10:47 Range/Units Troponin I High Sensitivity < 3 L < 3 L </=34 ng/L White Blood Count 14.2 H 4.4-10.8 10^3/uL Red Blood Count 4.82 4.0-5.20 10^6/uL Hemoglobin 12.8 12.2-16.2 g/dL Hematocrit 39.3 36.0-46.0 % Mean Corpuscular Volume 81.7 80.0-100.0 fL Mean Corpuscular Hemoglobin 26.6 L 28.0-32.0 pg Mean Corpuscular Hemoglobin Concent 32.6 32.0-36.0 g/dL Red Cell Distribution Width 16.8 H 11.8-14.3 % Platelet Count 682 H 140-450 10^3/uL Mean Platelet Volume 7.9 6.9-10.8 fL Neutrophils (%) (Auto) 82.2 H 37.0-80.0 % Lymphocytes (%) (Auto) 9.9 L 10.0-50.0 % Monocytes (%) (Auto) 6.4 0.0-12.0 % Eosinophils (%) (Auto) 0.6 0.0-7.0 % Basophils (%) (Auto) 0.9 0.0-2.0 % Neutrophils # (Auto) 11.6 H 1.6-8.6 10 ^3/uL Lymphocytes # (Auto) 1.4 0.4-5.4 10 ^3/uL Monocytes # (Auto) 0.9 0-1.3 10 ^3/uL Eosinophils # (Auto) 0.1 0-0.8 10 ^3/uL Basophils # (Auto) 0.1 0-0.2 10 ^3/uL Nucleated Red Blood Cells 0.0 % Sodium Level 136 136-145 mmol/L Potassium Level 4.0 3.5-5.1 mmol/L Chloride Level 99 98-107 mmol/L Carbon Dioxide Level 28 20-31 mmol/L Anion Gap 9 5-15 Blood Urea Nitrogen 9 9-23 mg/dL Creatinine 0.91 0.550-1.02 mg/dL Glomerular Filtration Rate Calc 65 >90 mL/min BUN/Creatinine Ratio 9.9 L 10.0-20.0 Serum Glucose 136 H 74-106 mg/dL Calcium Level 9.1 8.7-10.4 mg/dL Current Medications Medications (Trade) Dose Ordered Sig/Benito Route Start Time Stop Time Status Last Admin Methylprednisolone Sodium Succinate (Solu Medrol) 125 mg ONCE ONCE IV 08/11/25 10:45 08/11/25 10:46 DC 08/11/25 11:54 Albuterol (Ventolin Medneb) 5 mg ONCE ONCE NEB 08/11/25 10:45 08/11/25 10:46 DC 08/11/25 11:34 Ipratropium Marshall (Atrovent Medneb) 0.5 mg ONCE ONCE NEB 08/11/25 10:45 08/11/25 10:46 DC 08/11/25 11:35 Ceftriaxone Sodium 50 ml @ 100 mls/hr ONCE ONCE IV 08/11/25 10:45 08/11/25 11:14 DC 08/11/25 11:54 Azithromycin 250 ml @ 125 mls/hr ONCE ONCE IV 08/11/25 10:45 08/11/25 12:44 DC 08/11/25 12:13 [place] [id number] Ph: [phone] DIAGNOSTIC IMAGING Diagnostic Imaging Report : [id number] Signed PATIENT: SANTOS BATEMAN ACCT: [id number] UNIT: [id number] : 1950 LOC: ER ROOM / BED: / AGE / SEX: 75 / F ADM STATUS: REG ER SERVICE 1041 ORDERING PHYSICIAN: JOYCE VELIZ MD PROCEDURE(s): CXRP - CHEST PORTABLE REASON: sob ORDER NUMBER(s): [id number], ACCESSION NUMBER(s): [id number] CHEST RADIOGRAPH Indication: sob Technique: Single frontal view of the chest was obtained COMPARISON: XY CHEST PORTABLE on DOS: 02/26/25, XY CHEST PORTABLE on DOS: 02/24/25, XY CHEST PORTABLE on DOS: 02/21/25, XY CHEST XRAY 1 VIEW on DOS: 02/17/25, XY CHEST TWO VIEWS ROUTINE on DOS: 02/14/25 FINDINGS: Lines and Tubes: None Lungs: Diffuse chronic fibrotic change. Superimposed airspace disease not excluded. Pleura: No effusion. No pneumothorax. Cardiomediastinal contours: Unremarkable Bones: Unremarkable IMPRESSION: Diffuse chronic fibrotic change. Possible superimposed acute airspace disease. Clinical correlation advised. Patient alert. Came in because of shortness a breath. History of bronchiectasis. She is on oxygen. She gets these episodes frequently. She normally is admitted for intravenous antibiotics pain Chest x-ray reviewed does show chronic changes. Was given breathing treatment. Was given steroid. Was given antibiotics. Explained to the patient. Continue monitoring. Time of 1ST Reevaluation: 10:47 Reevaluation 1ST: Unchanged Patient Education/Counseling: Diagnosis, Treatment, Prognosis Family Education/Counseling: Diagnosis, Treatment, Prognosis SEPSIS Sepsis Screen Date sepsis recognized/suspect: Aug 11, 2025 Time Sepsis recognized/suspect: 1030 Recent Procedure: No On Antibiotic Therapy: No Respiratory Rate >20: Yes Heart Rate >90: Yes Temp<36 C (96.8 F) or >38.3 C: No SBP <90 or MAP <65 mmHG: No New Acute Mental Status Change: No Is the patient on CPAP, BIPAP,: No Physician Orders Chest Portable (08/11/25 10:41) Urinalysis (08/11/25 10:41) Troponin-I Hs (08/11/25 13:41) Vital Signs Date Time Temp Pulse Resp B/P (MAP) Pulse Ox O2 Delivery O2 Flow Rate FiO2 08/11/25 12:05 94 18 95 Nasal Cannula* 2 28 08/11/25 12:05 97.9 94 18 135/91 (106) 95 97.9 08/11/25 11:30 18 100 Nasal Cannula* 2 28 08/11/25 10:44 94 08/11/25 10:30 98.1 99 24 121/84 91 98.1 Laboratory Tests Test 08/11/25 10:47 White Blood Count 14.2 10^3/uL (4.4-10.8) H Medications Medications Dose Ordered Sig/Benito Route Start Time Stop Time Status Last Admin Dose Admin Albuterol 5 mg ONCE ONCE NEB 08/11/25 10:45 08/11/25 10:46 DC 08/11/25 11:34 Azithromycin 250 ml @ 125 mls/hr ONCE ONCE IV 08/11/25 10:45 08/11/25 12:44 DC 08/11/25 12:13 Ceftriaxone Sodium 50 ml @ 100 mls/hr ONCE ONCE IV 08/11/25 10:45 08/11/25 11:14 DC 08/11/25 11:54 Ipratropium Marshall 0.5 mg ONCE ONCE NEB 08/11/25 10:45 08/11/25 10:46 DC 08/11/25 11:35 Methylprednisolone Sodium Succinate 125 mg ONCE ONCE IV 08/11/25 10:45 08/11/25 10:46 DC 08/11/25 11:54 Departure 1 Departure Time of Disposition: 13:43 Impression: Primary Impression: Pneumonitis Disposition: ADMITTED INPATIENT Admit to: Med Surg Condition: Guarded Critical Care Note Critical Care Time?: No Stability Stability form required: No Heart Score Heart Score: Heart Score Response (Comments) Value History N/A 0 EKG N/A 0 Age N/A 0 Risk Factors N/A 0 Troponin N/A 0 Total 0 I personally scribed for JOYCE VELIZ MD ([email or web address]) on 08/11/25 at 10:53. Electronically submitted by Lorena Holland ([facility]). I personally scribed for JOYCE VELIZ MD ([email or web address]) on 08/11/25 at 11:45. Electronically submitted by Jessica Sherwood ([facility]). I personally scribed for JOYCE VELIZ MD (MARNI) on 08/11/25 at 11:46. Electronically submitted by Jessica Sherwood ([facility]). JOYCE VELIZ MD Aug 11, 2025 10:53
[2025-08-11 11:09] LABS: Hematocrit 39.3 % (36.0-46.0); Hemoglobin 12.8 g/dL (12.2-16.2); Mean Corpuscular Hemoglobin 26.6 pg (28.0-32.0); Mean Corpuscular Volume 81.7 fL (80.0-100.0); Nucleated Red Blood Cells % 0.0 %
[2025-08-11 11:16] LABS: Chloride 99 mmol/L (98-107); Potassium 4.0 mmol/L (3.5-5.1)
[2025-08-11 11:17] LABS: Anion Gap 9 (5-15); Carbon Dioxide 28 mmol/L (20-31)
[2025-08-11 11:18] LABS: Calcium 9.1 mg/dL (8.7-10.4)
[2025-08-11 11:21] LABS: Sodium 136 mmol/L (136-145)
[2025-08-11 11:22] LABS: BUN/Creatinine Ratio 9.9 (10.0-20.0); Blood Urea Nitrogen 9 mg/dL (9-23)
[2025-08-11 11:26] LABS: Glucose 136 mg/dL (74-106)
[2025-08-11] MEDS: ALBUTEROL SULF 2.5 MG/0.5ML(0.5%) NEB SOLN NEB ONE (11:34)
[2025-08-11] MEDS: IPRATROPIUM BROM 0.5 MG/2.5ML INH SOL NEB ONE (11:35)
--- NOTE | 2025-08-11 11:36 | DVH ---
CHEST RADIOGRAPH Indication: sob Technique: Single frontal view of the chest was obtained COMPARISON: XY CHEST PORTABLE on DOS: 02/26/25, XY CHEST PORTABLE on DOS: 02/24/25, XY CHEST PORTABLE o n DOS: 02/21/25, XY CHEST XRAY 1 VIEW on DOS: 02/17/25, XY CHEST TWO VIEWS ROUTINE on DOS: 02/14/25 FINDINGS: Lines and Tubes: None Lungs: Diffuse chronic fibrotic change. Superimposed airspace disease not excluded. Pleura: No effusion. No pneumothorax. Cardiomediastinal contours: Unremarkable Bones: Unremarkable IMPRESSION: Diffuse chronic fibrotic change. Possible superimposed acute airspace disease. Clinical correlation advised.
[2025-08-11] MEDS: methylPREDNISolone SOD SUCC 125 MG/2 ML VL IV ONE (11:54)
[2025-08-11 12:05] VITALS: PULSE 94; RESP 18; O2SAT 95
[2025-08-11] MEDS: AZITHROMYCIN 500MG/ 250ML 250 ML IV ONE (12:13)
[2025-08-11] MEDS ORDERED: AZIT500T66 PO (17:55)
[2025-08-11] MEDS ORDERED: PRED20TA2 PO (17:55)
--- NOTE | 2025-08-11 18:01 | DVHDS2 ---
Discharge Summary Date of Admission Date of Discharge: Aug 11, 2025 Labs/Diagnostic Data: Laboratory Results Test 08/11/25 12:11 08/11/25 10:47 Troponin I High Sensitivity < 3 ng/L (</=34) White Blood Count 14.2 10^3/uL (4.4-10.8) Red Blood Count 4.82 10^6/uL (4.0-5.20) Hemoglobin 12.8 g/dL (12.2-16.2) Hematocrit 39.3 % (36.0-46.0) Mean Corpuscular Volume 81.7 fL (80.0-100.0) Mean Corpuscular Hemoglobin 26.6 pg (28.0-32.0) Mean Corpuscular Hemoglobin Concent 32.6 g/dL (32.0-36.0) Red Cell Distribution Width 16.8 % (11.8-14.3) Platelet Count 682 10^3/uL (140-450) Mean Platelet Volume 7.9 fL (6.9-10.8) Neutrophils (%) (Auto) 82.2 % (37.0-80.0) Lymphocytes (%) (Auto) 9.9 % (10.0-50.0) Monocytes (%) (Auto) 6.4 % (0.0-12.0) Eosinophils (%) (Auto) 0.6 % (0.0-7.0) Basophils (%) (Auto) 0.9 % (0.0-2.0) Neutrophils # (Auto) 11.6 10 ^3/uL (1.6-8.6) Lymphocytes # (Auto) 1.4 10 ^3/uL (0.4-5.4) Monocytes # (Auto) 0.9 10 ^3/uL (0-1.3) Eosinophils # (Auto) 0.1 10 ^3/uL (0-0.8) Basophils # (Auto) 0.1 10 ^3/uL (0-0.2) Nucleated Red Blood Cells 0.0 % Sodium Level 136 mmol/L (136-145) Potassium Level 4.0 mmol/L (3.5-5.1) Chloride Level 99 mmol/L (98-107) Carbon Dioxide Level 28 mmol/L (20-31) Anion Gap 9 (5-15) Blood Urea Nitrogen 9 mg/dL (9-23) Creatinine 0.91 mg/dL (0.550-1.02) Glomerular Filtration Rate Calc 65 mL/min (>90) BUN/Creatinine Ratio 9.9 (10.0-20.0) Serum Glucose 136 mg/dL (74-106) Calcium Level 9.1 mg/dL (8.7-10.4) Other Laboratory Tests 08/11/25 10:47 Brief Hx & Hospital Course: HPI:75 y.o female presents to the ED for a chief complaint of SOB associated with dark phlegm, and a productive cough that started 3 days ago. Patient reports having flare ups due to chronic bronchitis, states she usually receives antibiotic treatment at the hospital and improves. Patient was told by PCP whenever she had these flare ups, to come into the ED for antibiotic care. Las regime was about 14 days ago. She denies any chest pain, nausea, vomiting, fever, or chills. Upon ED arrival, patient's SPO2 was at 86% RA and was placed on 4 liters oxygen via NC increasing SPO2 to 91%/ Summary: Initially patient found to be hypoxic requiring oxygen. Patient given Solu-Medrol 125 mg IV, started duo nebs, ceftriaxone 1 g, azithromycin 500 mg IV, after given treatments patient improves and retest on oxygen showing patient stable on room air, patient conversing full sentences feels well asking to go home. Patient is stable to go home discharge home, vitals stable, stable for discharge as per plan below. Diagnosis Chronic COPD, with acute exacerbation , with pneumonitis Chronic Bronchiectasis, in acute exacerbation hypoxemia resolved Hypertension plan: safe to go home Continue home medications Start azithromycin 500 mg once daily for 7 days Take prednisone taper (2/day x5day, 1/day x5day, half pill daily x6day ) return to nearest ED if shortness of breath returns and not improving with nebulizers and/or rescue inhalers. Follow up with pulmonology specialist to consider return to [facility] Condition at Discharge: Fair Final Diagnosis/Problems List Chronic COPD, with acute exacerbation , with pneumonitis Chronic Bronchiectasis, in acute exacerbation hypoxemia resolved Hypertension plan: Discharge Disposition: Home Discharge Instruct/Medications Diet: Regular Activity: No Restrictions, As Tolerated Follow Up/Referral: below Medications: below Scheduled Albuterol Sulfate (Ventolin), 2.5 MG NEB Q6H Azithromycin (Azithromycin), 1 TAB PO DAILY Fluticasone-Salmeterol (Advair Diskus 250/50), 1 PUFF INH BID Furosemide (Lasix), 1 TAB PO DAILY Prednisone (Prednisone), 40 MG PO QAM Prednisone (Prednisone), 20 MG PO DAILY Zyvox (Zyvox Tablet), 600 MG PO BID Miscellaneous Medications Dzxkiufznam-Pahtawyeyfzy-Fnphi (Trelegy Ellipta 100-62.5-25 Mcg/INH), 1 AER IN, (Reported) Discharge Statement: "Patient was advised to return to the ER or call 911 if any headaches, dizziness, shortness of breath, chest pain, abdominal pain, bleeding, fevers, or worsening of medical condition. Patient was counseled about treatment plan, medications, possible side effects, patientverbalized understanding. All questions were answered to the best of my ability. This discharge took greater then 30 minutes in planning, reviewing documentation, counseling the patient, and discussing with other team members." Date of Service: Aug 11, 2025 Billing Provider: VIRGEN MATIAS MD Common Visit Codes: 34955-VYX/OBS DISCH DAY >30min VIRGEN MATIAS MD Aug 11, 2025 18:01
[2025-08-11 19:45] VITALS: BP 146/85; PULSE 101; RESP 18; TEMP 98.7; O2SAT 94
== END 2025-08-11 19:46 | disposition home or self-care (01) ==
LOC: ER 10:24
DX: J98.4 Other disorders of lung (principal); J44.0 Chronic obstructive pulmonary disease with (acute) lower respiratory infection; I10 Essential (primary) hypertension; Z90.710 Acquired absence of both cervix and uterus; Z79.899 Other long term (current) drug therapy
CPT/HCPCS: 36415; 71045; 80048; 84484; 85025; 93005; 94640; 96365; 96366; 96368; 96375; 99285; J0456; J0696; J2919

== ENCOUNTER 2025-08-13 13:50 | Inpatient (IN) | payer OTHER ==
[~2025-08-13] VITALS: Ht 157.5 cm; Wt 42.1 kg
[~2025-08-13 13:50] MED LIST changes: +AZIT500T66 PO
--- NOTE | 2025-08-13 14:25 | ED.PDOC ---
SOB-HPI HPI Comments 75 year old patient presents to the ED with a chief complaint of shortness of breath onset today. Patient was initially seen in this ED on 08/11/25, for shortness of breath and productive cough, has chronic bronchitis, was admitted and discharged same day. Patient was walking up the stairs at [facility] when she began experiencing shortness of breath, experienced a near-syncopal episode, rapid response was called, brought to ED. PMHx HTN, COPD. Denies fever, chills, nausea, vomiting, dizziness, blurred vision. No other symptoms or modifying factors present at this time. Chief Complaint: Shortness of Breath Time Seen by MD: 14:10 Primary Care Provider: SHENA Reviewed notes: Medications, Allergies Information Source: Patient Mode of Arrival: Ambulatory Severity: Moderate Timing: Hours Duration: Since onset Context: With Light Exertion History of: COPD Prehospital treatment: None Modifying Factors: Nothing Associated Signs and Symptoms: None Past Medical History PAST MEDICAL HISTORY: COPD, HTN Surgical History: Hysterectomy, Tubal Ligation STAND UP COMEDIAN History: No Pertinent STAND UP COMEDIAN History Family History Family History: Family hx of DM, Family hx of Cancer Social History Smoker: Non-Smoker Alcohol: Occasionally Drugs: Denies Drug Use Lives In: Home Constitutional: denies: chills, diaphoresis, fatigue, fever, malaise, sweats, weakness, others EENTM: denies: blurred vision, double vision, ear bleeding, ear discharge, ear drainage, ear pain, ear ringing, eye pain, eye redness, hearing loss, mouth pain, mouth swelling, nasal discharge, nose bleeding, nose congestion, nose pain, photophobia, tearing, throat pain, throat swelling, voice changes, others Respiratory: reports: shortness of breath; denies: cough, hemoptysis, orthopnea, SOB at rest, SOB with excertion, stridor, wheezing, others Cardiovascular: denies: chest pain, dizzy spells, diaphoresis, Dyspnea on exertion, edema, irregular heart beat, left arm pain, lightheadedness, palpitations, PND, syncope, others Gastrointestinal: denies: abdomen distended, abdominal pain, blood streaked bowels, constipated, diarrhea, dysphagia, difficulty swallowing, hematemesis, melena, nausea, poor appetite, poor fluid intake, rectal bleeding, rectal pain, vomiting, others Genitourinary: denies: abnormal vagina bleeding, burning, dyspareunia, dysuria, flank pain, frequency, hematuria, incontinence, pain, , vagina discharge, urgency, others Neurological: reports: others (near syncope); denies: dizziness, fainting, headache, left sided numbness, left sided weakness, numbness, paresthesia, pre- existing deficit, right sided numbness, right sided weakness, seizure, speech problems, tingling, tremors, weakness Musculoskeletal: denies: back pain, gout, joint pain, joint swelling, muscle pain, muscle stiffness, neck pain, others Integumetry: denies: bruises, change in color, change in hair/nails, dryness, laceration, lesions, lumps, rash, wounds, others Allergic/Immunocompromised: denies: Difficulty Healing, Frequent Infections, Hives, Itching, others Hematologic/Lymphatic: denies: anemia, blood clots, easy bleeding, easy bruising, swollen glands, others Endocrine: denies: excessive hunger, excessive sweating, excessive thirst, excessive urination, flushing, intolerance to cold, intolerance to heat, unexplained weight gain, unexplained weight loss, others Psychiatric: denies: anxiety, bipolar disorder, depression, hopeless, panic disorder, schizophrenia, sleepless, suicidal, others All Other Systems: Reviewed and Negative Physical Exam General Appearance: Moderate Distress, Normal HEENT: Normal ENT Inspection, Pharynx Normal, TMs Normal Neck: Full Range of Motion, Non-Tender, Normal, Normal Inspection Respiratory: Chest Non-Tender, Respiratory Distress Cardiovascular: No Edema, No JVD, No Murmur, No Gallop, Normal Peripheral Pulses, Tachycardia Breast Exam: Deferred Gastrointestinal: No Organomegaly, Non Tender, No Pulsatile Mass, Normal Bowel Sounds, Soft Genitalia: Deferred Pelvic: Deferred Rectal: Deferred Extremities: No calf tenderness, Normal capillary refill, Normal inspection, Normal range of motion, Non-tender, No pedal edema Musculoskeletal : Apperance: Normal Neurologic: Alert, leather colorer II-XII nml as Tested, No Motor Deficits, Normal Affect, Normal Mood, No Sensory Deficits Cerebellar Function: Normal Reflexes: Normal Skin: Dry, Normal Color, Warm Peripheral Pulses: 3+ Radial (R), 3+ Radial (L) Lymphatic: No Adenopathy Was a procedure done? Was a procedure done?: No Differential Dx Differential Diagnosis: Anxiety, Asthma, Bronchitis, CHF, COPD X-Ray, Labs, Meds, VS Vital Signs Date Time Temp Pulse Resp B/P (MAP) Pulse Ox O2 Delivery O2 Flow Rate FiO2 08/13/25 14:10 98.7 111 24 143/101 97 98.7 Lab Test 08/13/25 15:21 Range/Units White Blood Count 22.6 #H 4.4-10.8 10^3/uL Red Blood Count 4.85 4.0-5.20 10^6/uL Hemoglobin 13.2 12.2-16.2 g/dL Hematocrit 40.0 36.0-46.0 % Mean Corpuscular Volume 82.4 80.0-100.0 fL Mean Corpuscular Hemoglobin 27.1 L 28.0-32.0 pg Mean Corpuscular Hemoglobin Concent 32.9 32.0-36.0 g/dL Red Cell Distribution Width 17.4 H 11.8-14.3 % Platelet Count 679 H 140-450 10^3/uL Mean Platelet Volume 7.8 6.9-10.8 fL Neutrophils (%) (Auto) 89.1 H 37.0-80.0 % Lymphocytes (%) (Auto) 4.6 L 10.0-50.0 % Monocytes (%) (Auto) 5.6 0.0-12.0 % Eosinophils (%) (Auto) 0.2 0.0-7.0 % Basophils (%) (Auto) 0.5 0.0-2.0 % Neutrophils # (Auto) 20.2 H 1.6-8.6 10 ^3/uL Lymphocytes # (Auto) 1.0 0.4-5.4 10 ^3/uL Monocytes # (Auto) 1.3 0-1.3 10 ^3/uL Eosinophils # (Auto) 0 0-0.8 10 ^3/uL Basophils # (Auto) 0.1 0-0.2 10 ^3/uL Nucleated Red Blood Cells 0.0 % Sodium Level 138 136-145 mmol/L Potassium Level 4.5 3.5-5.1 mmol/L Chloride Level 100 98-107 mmol/L Carbon Dioxide Level 30 20-31 mmol/L Anion Gap 8 5-15 Blood Urea Nitrogen 13 9-23 mg/dL Creatinine 0.81 0.550-1.02 mg/dL Glomerular Filtration Rate Calc 75 >90 mL/min BUN/Creatinine Ratio 16.0 10.0-20.0 Serum Glucose 113 H 74-106 mg/dL Calcium Level 9.2 8.7-10.4 mg/dL Troponin I High Sensitivity < 3 L </=34 ng/L Patient alert. Complaining of shortness a breath. Was just seen here few days ago. Placed on oxygen. She does have bronchiectasis. Stat consult for Pulmonary. Was given steroid. Continue to monitor. Cardiac marker within normal limits. WBC elevated. Hemoglobin within normal limits. Dietetic Technician Registered want the patient to be admitted. Time of 1ST Reevaluation: 14:40 Reevaluation 1ST: Unchanged Patient Education/Counseling: Diagnosis, Treatment, Prognosis Family Education/Counseling: No Family Present SEPSIS Sepsis Screen Physician Orders Chest Portable (08/13/25 15:03) Urinalysis (08/13/25 15:03) *Consult / (08/13/25 15:03) Piperacillin-Tazob 3.375gm (Zosyn 3.375g (08/13/25 17:00) Respiratory Culture W/ Gs (08/13/25 16:54) Vital Signs Date Time Temp Pulse Resp B/P (MAP) Pulse Ox O2 Delivery O2 Flow Rate FiO2 08/13/25 14:10 98.7 111 24 143/101 97 98.7 Laboratory Tests Test 08/13/25 15:21 White Blood Count 22.6 10^3/uL (4.4-10.8) #H Departure 1 Departure Time of Disposition: 15:21 Impression: Primary Impression: Pneumonitis Disposition: ADMITTED INPATIENT Admit to: Med Surg Condition: Guarded Critical Care Note Critical Care Time?: Yes (90 min-critical care time only) Stability Stability form required: No Heart Score Heart Score: Heart Score Response (Comments) Value History N/A 0 EKG N/A 0 Age N/A 0 Risk Factors N/A 0 Troponin N/A 0 Total 0 I personally scribed for JOYCE VELIZ MD ([email or web address]) on 08/13/25 at 14:25. Electronically submitted by Rose Alanis ([email or web address]). JOYCE VELIZ MD Aug 13, 2025 14:25
[2025-08-13 15:34] LABS: Hematocrit 40.0 % (36.0-46.0); Hemoglobin 13.2 g/dL (12.2-16.2); Mean Corpuscular Hemoglobin 27.1 pg (28.0-32.0); Mean Corpuscular Volume 82.4 fL (80.0-100.0); Nucleated Red Blood Cells % 0.0 %
[2025-08-13 15:42] LABS: Chloride 100 mmol/L (98-107); Potassium 4.5 mmol/L (3.5-5.1); Sodium 138 mmol/L (136-145)
[2025-08-13 15:43] LABS: Anion Gap 8 (5-15); Calcium 9.2 mg/dL (8.7-10.4); Carbon Dioxide 30 mmol/L (20-31)
[2025-08-13 15:48] LABS: BUN/Creatinine Ratio 16.0 (10.0-20.0); Blood Urea Nitrogen 13 mg/dL (9-23)
[2025-08-13 15:49] LABS: Glucose 113 mg/dL (74-106)
--- NOTE | 2025-08-13 15:57 | DVH ---
CHEST RADIOGRAPH Indication: sob Technique: Single frontal view of the chest was obtained Comparison: XY CHEST PORTABLE on DOS: 08/11/25, XY CHEST PORTABLE on DOS: 02/26/25, XY CHEST PORTABLE o n DOS: 02/24/25 FINDINGS: Lines and Tubes: None Lungs: Chronic pulmonary fibrotic changes bilaterally not significantly changed from 08/11/2025 Pleura: No effusion. No pneumothorax. Cardiomediastinal contours: Unremarkable Bones: No acute osseous abnormality. IMPRESSION: 1. Chronic pulmonary fibrotic changes bilaterally not significantly changed from 08/11/2025, 5. 2. Findings are worse 01/24/2024.
--- NOTE | 2025-08-13 16:54 | DVHINCON2 ---
Date Seen: Aug 13, [address] Jones Reason for Consultation Pneumonia, multifocal History of Present Illness 75-year-old woman history of COPD, chronic hypoxic respiratory failure, hypertension, prior Pseudomonas pneumonia who presented with shortness of breath. She was recently seen on August 11, 2025 for shortness of breath and a productive cough. Chest x-ray demonstrated multifocal opacities. She was recently admitted in January of 2025 for Pseudomonas pneumonia. She was treated with a extended course of IV antibiotics. Chest x-ray today demonstrates interval worsening in bilateral opacities. She is having increased O2 requirements. She had a rapid response while coming up to see me in the office when she climbed up the flight of stairs. She collapsed and was brought into the emergency department for evaluation. Pulmonary consultation is called due to acute on chronic hypoxic respiratory failure and multifocal pneumonia. Review of systems: 14 point review of systems is negative unless otherwise noted above. Past medical history: COPD, chronic hypoxic respiratory failure, dependence on supplemental oxygen, hypertension, Pseudomonas pneumonia Past surgical history: Height obstruction, bilateral tubal ligation Medications: Reviewed Allergies: Morphine. Family history: No family history of premature CAD. No family history of lung disease. Social history: Nonsmoker. Social alcohol use. No illicit drug use. Lives at home with family. Family History: Diabetes mellitus G8 MOTHER G8 FATHER FH: cirrhosis G8 FATHER FH: hepatitis G8 FATHER Allergies: Coded Allergies: Morphine (Verified Allergy, Intermediate, VOMITING, 02/16/25) Home Meds Active Scripts Prednisone (Prednisone) 20 Mg Tab, 20 MG PO DAILY for 16 Days, #18 MG 0 Refills 2/day x5, 1/day x5, half pill daily x6 Prov:VIRGEN MATIAS MD 08/11/25 Azithromycin (Azithromycin) 500 Mg Tab, 1 TAB PO DAILY for 7 Days, #7 TAB Prov:VIRGEN MATIAS MD 08/11/25 Zyvox (ZYVOX TABLET) 600 Mg Tb, 600 MG PO BID for 10 Days, #20 TAB Prov:MAURA CARVALHO MD 02/27/25 Furosemide (Lasix) 20 Mg Tb, 1 TAB PO DAILY, #14 TAB 0 Refills Prov:MAURA CARVALHO MD 01/26/24 Fluticasone-Salmeterol (Advair Diskus 250/50) 1 Puff Ih, 1 PUFF INH BID, #1 INHALER 5 Refills Prov:MAURA CARVALHO MD 01/26/24 Prednisone (Prednisone) 20 Mg Tab, 40 MG PO QAM for 7 Days, #7 MG Prov:MAURA CARVALHO MD 01/26/24 Albuterol Sulfate (Ventolin) 2.5 Mg/0.5 Ml Nb, 2.5 MG NEB Q6H for 30 Days, #60 INH Prov:MAURA CARVALHO MD 01/26/24 Reported Medications Dpjyxfnvods-Yetokswlbwnf-Jhruj (Trelegy Ellipta 100-62.5-25 Mcg/INH) 1 Aer Aer, 1 AER IN, AER 02/14/25 Physical Exam Gen.: Patient lying in bed in no apparent distress. On supplemental oxygen. Head: Normocephalic, atraumatic Eyes: EOMI/PERRLA. Ears: Normal hearing. Normal anatomy. Neck/trachea: Trachea midline, supple. Nose: Normal external anatomy. Mouth: Moist mucous membranes. Chest: Decreased air entry bilaterally. No wheezing . Scattered rhonchi. Cardio vascular: Positive S1, positive S2. Regular rate and rhythm. Abdomen: Positive bowel sounds in all 4 quadrants. Soft, non-tender, non- distended. : Deferred. Rectal: Deferred Skin: Warm, dry. Intact Extremities: 2+ radial pulses bilaterally. No lower extremity edema. Neuro: Awake, alert, oriented x3. No gross motor or sensory deficits. Cranial nerves II through XII intact. Gait not assessed. Labs/Diagnostic Data Labs Test 08/13/25 15:21 Range/Units White Blood Count 22.6 #H 4.4-10.8 10^3/uL Red Blood Count 4.85 4.0-5.20 10^6/uL Hemoglobin 13.2 12.2-16.2 g/dL Hematocrit 40.0 36.0-46.0 % Mean Corpuscular Volume 82.4 80.0-100.0 fL Mean Corpuscular Hemoglobin 27.1 L 28.0-32.0 pg Mean Corpuscular Hemoglobin Concent 32.9 32.0-36.0 g/dL Red Cell Distribution Width 17.4 H 11.8-14.3 % Platelet Count 679 H 140-450 10^3/uL Mean Platelet Volume 7.8 6.9-10.8 fL Neutrophils (%) (Auto) 89.1 H 37.0-80.0 % Lymphocytes (%) (Auto) 4.6 L 10.0-50.0 % Monocytes (%) (Auto) 5.6 0.0-12.0 % Eosinophils (%) (Auto) 0.2 0.0-7.0 % Basophils (%) (Auto) 0.5 0.0-2.0 % Neutrophils # (Auto) 20.2 H 1.6-8.6 10 ^3/uL Lymphocytes # (Auto) 1.0 0.4-5.4 10 ^3/uL Monocytes # (Auto) 1.3 0-1.3 10 ^3/uL Eosinophils # (Auto) 0 0-0.8 10 ^3/uL Basophils # (Auto) 0.1 0-0.2 10 ^3/uL Nucleated Red Blood Cells 0.0 % Sodium Level 138 136-145 mmol/L Potassium Level 4.5 3.5-5.1 mmol/L Chloride Level 100 98-107 mmol/L Carbon Dioxide Level 30 20-31 mmol/L Anion Gap 8 5-15 Blood Urea Nitrogen 13 9-23 mg/dL Creatinine 0.81 0.550-1.02 mg/dL Glomerular Filtration Rate Calc 75 >90 mL/min BUN/Creatinine Ratio 16.0 10.0-20.0 Serum Glucose 113 H 74-106 mg/dL Calcium Level 9.2 8.7-10.4 mg/dL Troponin I High Sensitivity < 3 L </=34 ng/L Assessment Impression: Sepsis 2/2 multifocal pneumonia Acute on chronic hypoxic respiratory failure Multifocal pneumonia likely Gram-negative Atelectasis COPD Bronchiectasis exacerbation Interstitial lung disease, chronic Leucocytosis Plan: Recommend inpatient admission for IV antibiotics. Prior pseudomonal infection in 01/2025 required prolonged antibiotic IV. Supplemental oxygen Keep O2 saturation above 92%. Increasing O2 requirements. Reviewed chest x-ray from August 11, 2025 and compared to August 13, 2025. Interval worsening in bilateral opacities consistent with multifocal pneumonia. Leucocytosis with left shift IV antibiotics Send sputum for Gram stain and culture Bronchodilators DVT prophylaxis Prognosis: Poor given multiple comorbidities. Rest of plan per hospitalist and other consultants. Thank you Dr. Jones for allowing me to participate in this patient's care. Further recommendations will depend on patient's clinical course. Please do not hesitate to contact me if you have any questions or concerns. This medical document was created using an electronic medical record system with [employer] dictation system. Although this document has been carefully reviewed, there may still be some phonetic and typographical errors. These areas are purely typographical due to imperfections of the software programs, and do not reflect any compromise in the patient's medical care. Plan discussed with: Patient, Other (RN, MD) Date of Service: Aug 13, 2025 Billing Provider: LOBO ZENG MD Common Visit Codes: 39028-[id number] INP/OBS CARE (HIGH) LOBO ZENG MD Aug 13, 2025 16:54
[2025-08-13] MEDS: ALBUTEROL SULF 2.5 MG/0.5ML(0.5%) NEB SOLN NEB ONE (17:35)
[2025-08-13] MEDS: IPRATROPIUM BROM 0.5 MG/2.5ML INH SOL NEB ONE (17:35)
[2025-08-13] MEDS: methylPREDNISolone SOD SUCC 125 MG/2 ML VL IV ONE (19:57)
[2025-08-13] MEDS: PIPERACILLIN-TAZOB 3.375GM 100 ML IV ONE (20:05)
--- NOTE | 2025-08-13 21:08 | DVHHPRES ---
History of Present Illness Resident Creating Document: JASMYNE RAINEY RESIDENT History of Present Illness 75-year-old female with past medical history of COPD and hypertension presented with complaint of shortness of breath that started yesterday. Patient was seen in the ED on 08/11/2025 for shortness of present productive cough, was diagnosed with chronic bronchitis and was admitted and discharged the same day. Patient was walking up the stairs at [facility] when she began experiencing shortness of breath, experienced a near-syncopal episode, rapid response was called, brought to ED. On evaluation, patient is currently on 2 L of oxygen, mentioning shortness of breath. Is having saturation 98% on 2 L. Mentions associated cough which is white in color, mentioned no hemoptysis PCP Dr. Nelson Past medical history COPD Hypertension Surgical History: Hysterectomy, Tubal Ligation Family History Family History: Family hx of DM, Family hx of Cancer Social History Smoker: Non-Smoker Alcohol: Occasionally Drugs: Denies Drug Use Lives In: Home Review of Systems Review of Systems As described in the HPI Allergies: Coded Allergies: Morphine (Verified Allergy, Intermediate, VOMITING, 02/16/25) Exam Vital Signs Vital Signs Date Time Temp Pulse Resp B/P (MAP) Pulse Ox O2 Delivery O2 Flow Rate FiO2 08/13/25 17:35 18 97 Nasal Cannula* 2 28 08/13/25 14:10 98.7 111 143/101 98.7 Exam Examination General Appearance: Alert, Oriented X3, Cooperative, No acute distress HEENT: EOMI Respiratory: Bilateral wheezing Clear to auscultation, Normal air movement Cardiovascular: Regular rate, Normal S1, Normal S2 Abdominal: Normal bowel sounds Extremities: No cyanosis, No edema, Normal pulses, No tenderness/swelling Skin: No rashes, No breakdown Neuro: Normal gait, Normal speech, Strength at 5/5 X4 ext, Normal tone, Sensation intact, Cranial nerves 3-12 NL, Reflexes 2+ Psych/Mental Status: Mental status NL, Mood NL Labs/Xrays Labs Test 08/13/25 15:21 Range/Units White Blood Count 22.6 #H 4.4-10.8 10^3/uL Red Blood Count 4.85 4.0-5.20 10^6/uL Hemoglobin 13.2 12.2-16.2 g/dL Hematocrit 40.0 36.0-46.0 % Mean Corpuscular Volume 82.4 80.0-100.0 fL Mean Corpuscular Hemoglobin 27.1 L 28.0-32.0 pg Mean Corpuscular Hemoglobin Concent 32.9 32.0-36.0 g/dL Red Cell Distribution Width 17.4 H 11.8-14.3 % Platelet Count 679 H 140-450 10^3/uL Mean Platelet Volume 7.8 6.9-10.8 fL Neutrophils (%) (Auto) 89.1 H 37.0-80.0 % Lymphocytes (%) (Auto) 4.6 L 10.0-50.0 % Monocytes (%) (Auto) 5.6 0.0-12.0 % Eosinophils (%) (Auto) 0.2 0.0-7.0 % Basophils (%) (Auto) 0.5 0.0-2.0 % Neutrophils # (Auto) 20.2 H 1.6-8.6 10 ^3/uL Lymphocytes # (Auto) 1.0 0.4-5.4 10 ^3/uL Monocytes # (Auto) 1.3 0-1.3 10 ^3/uL Eosinophils # (Auto) 0 0-0.8 10 ^3/uL Basophils # (Auto) 0.1 0-0.2 10 ^3/uL Nucleated Red Blood Cells 0.0 % Sodium Level 138 136-145 mmol/L Potassium Level 4.5 3.5-5.1 mmol/L Chloride Level 100 98-107 mmol/L Carbon Dioxide Level 30 20-31 mmol/L Anion Gap 8 5-15 Blood Urea Nitrogen 13 9-23 mg/dL Creatinine 0.81 0.550-1.02 mg/dL Glomerular Filtration Rate Calc 75 >90 mL/min BUN/Creatinine Ratio 16.0 10.0-20.0 Serum Glucose 113 H 74-106 mg/dL Calcium Level 9.2 8.7-10.4 mg/dL Troponin I High Sensitivity < 3 L </=34 ng/L SEPSIS Sepsis Screen Date sepsis recognized/suspect: Aug 13, 2025 Time Sepsis recognized/suspect: 1409 Recent Procedure: No On Antibiotic Therapy: No Respiratory Rate >20: Yes Heart Rate >90: Yes Temp<36 C (96.8 F) or >38.3 C: No SBP <90 or MAP <65 mmHG: No New Acute Mental Status Change: No Is the patient on CPAP, BIPAP,: No Physician Orders Chest Portable (08/13/25 15:03) Urinalysis (08/13/25 15:03) *Consult / (08/13/25 15:03) Respiratory Culture W/ Gs (08/13/25 16:54) Admit (08/13/25 21:02) Oxygen By Nasal Cannula (08/13/25 21:02) Stat Ekg For Chest Pain (08/13/25 21:02) Notify Md Of Changes From Base (08/13/25 21:02) Account Resolution Expert For 24 Hours (08/13/25 21:02) Emergency Dysrhythmia Protocol (08/13/25 21:02) Rhythm Strips Once Every Shift (08/13/25 21:02) Electrocardigram (08/13/25 21:02) Troponin-I Hs (08/13/25 21:02) D-Dimer (08/13/25 21:02) Comprehensive Metabolic Panel (08/13/25 21:02) Complete Blood Count (08/13/25 21:02) Thyroid Stimulating Hormone (08/13/25 21:02) Urinalysis (08/13/25 21:02) B-Type Natriuretic Peptide (08/13/25 21:02) Albuterol Medneb (Ventolin Medneb) (08/13/25 21:15) Ipratropium Medneb (Atrovent Medneb) (08/13/25 21:15) Vancomycin (08/13/25 21:15) Zosyn Extended Infusion (08/13/25 21:15) Prednisone Tablet (08/14/25 10:00) Covid19 Antigen Stephenie (08/13/25 ) Rapid Influenza A&B (08/13/25 21:02) Vital Signs Date Time Temp Pulse Resp B/P (MAP) Pulse Ox O2 Delivery O2 Flow Rate FiO2 08/13/25 17:35 18 97 Nasal Cannula* 2 28 08/13/25 14:10 98.7 111 24 143/101 97 98.7 Laboratory Tests Test 08/13/25 15:21 White Blood Count 22.6 10^3/uL (4.4-10.8) #H Medications Medications Dose Ordered Sig/Benito Route Start Time Stop Time Status Last Admin Dose Admin Albuterol 2.5 mg ONCE ONCE NEB 08/13/25 17:00 08/13/25 17:16 DC 08/13/25 17:35 2.5 MG Ipratropium [place] 0.5 mg ONCE ONCE NEB 08/13/25 17:00 08/13/25 17:16 DC 08/13/25 17:35 0.5 MG Methylprednisolone Sodium Succinate 125 mg ONCE ONCE IV 08/13/25 15:30 08/13/25 15:31 DC 08/13/25 19:57 125 MG Piperacillin Sod/ Tazobactam Sod 100 ml @ 100 mls/hr ONCE ONCE IV 08/13/25 17:00 08/13/25 17:59 DC 08/13/25 20:05 100 MLS/HR Assessment/Plan Assessment/Plan Assessment/plan # acute hypoxic respiratory failure due to COPD exacerbation/pneumonia On 2 L of oxygen # acute COPD exacerbation Albuterol p.r.n. Ipratropium p.r.n. IV methylprednisolone Started on prednisolone 40 mg daily Started on IV antiemetics # sepsis due to community-acquired pneumonia IV antibiotics # community-acquired pneumonia Gram-positive/Gram-negative Started on IV antibiotics MRSA screen Sputum culture # chronic lung fibrosis Seen on x-ray Pulmonology consulted by ER # elevated D-dimer Likely due to COPD and pneumonia Therapeutic Lovenox once Consider CT angio if high-risk of PE # hypertension Resume home meds Case discussed with Dr. Carvalho Plan discussed with: Patient, Other My Orders Orders - JASMYNE RAINEY RESIDENT Procedure Category Date Status Time Admit ADMIT 08/13/25 Verified 21:02 Oxygen By Nasal RT 08/13/25 Verified Cannula 21:02 Stat Ekg For Chest [facility] 08/13/25 Verified Pain 21:02 Notify Of Changes [facility] 08/13/25 Verified From Base 21:02 Account Resolution Expert For [facility] 08/13/25 Verified 24 Hours 21:02 Emergency Dysrhythmia [facility] 08/13/25 Verified Protocol 21:02 Rhythm Strips Once [facility] 08/13/25 Verified Every Shift 21:02 Electrocardigram EKG 08/13/25 Verified 21:02 Troponin-I Hs LAB 08/13/25 Verified 21:02 D-Dimer LAB 08/13/25 Verified 21:02 Comprehensive LAB 08/13/25 Verified Metabolic Panel 21:02 Complete Blood Count LAB 08/13/25 Verified 21:02 Thyroid Stimulating LAB 08/13/25 Verified Hormone 21:02 Urinalysis LAB 08/13/25 Verified 21:02 B-Type Natriuretic LAB 08/13/25 Verified Peptide 21:02 Albuterol Medneb PHA 08/13/25 Verified (Ventolin Medneb) 21:15 Ipratropium Medneb PHA 08/13/25 Verified (Atrovent Medneb) 21:15 Vancomycin PHA 08/13/25 Verified 21:15 Zosyn Extended PHA 08/13/25 Verified Infusion 21:15 Prednisone Tablet PHA 08/14/25 Verified 10:00 Covid19 Antigen Stephenie LAB 08/13/25 Verified Rapid Influenza A&B LAB 08/13/25 Verified 21:02 Date of Service: Aug 13, 2025 Billing Provider: MAURA CARVALHO MD Common Visit Codes: [id number] INP/OBS CARE (HIGH) Secondary Visit Codes: [id number] CARE PLAN 30 MINUTES JASMYNE RAINEY RESIDENT Aug 13, 2025 21:08 MAURA CARVALHO MD Aug 16, 2025 13:29
[2025-08-13] MEDS ORDERED: IPRATROPIUM BROM 0.5 MG/2.5ML INH SOL NEB PRN (21:15)
[2025-08-13] MEDS ORDERED: ALBUTEROL SULF 2.5 MG/0.5ML(0.5%) NEB SOLN NEB PRN (21:15)
[2025-08-13 21:47] LABS: Nucleated Red Blood Cells % 0.0 %
[2025-08-13 21:48] LABS: Hematocrit 39.2 % (36.0-46.0); Hemoglobin 12.9 g/dL (12.2-16.2); Mean Corpuscular Hemoglobin 26.6 pg (28.0-32.0); Mean Corpuscular Volume 80.9 fL (80.0-100.0)
[2025-08-13 22:08] LABS: Alanine Aminotransferase 11 U/L (7-40); Albumin 4.2 g/dL (3.2-4.8); Alkaline Phosphatase 101 U/L (46-116); Anion Gap 10 (5-15); BUN/Creatinine Ratio 16.0 (10.0-20.0); Bilirubin, Total 0.7 mg/dL (0.2-1.0); Blood Urea Nitrogen 12 mg/dL (9-23); Calcium 9.0 mg/dL (8.7-10.4); Carbon Dioxide 26 mmol/L (20-31); Chloride 100 mmol/L (98-107); Potassium 4.1 mmol/L (3.5-5.1); Sodium 136 mmol/L (136-145)
[2025-08-13 22:09] LABS: Glucose 137 mg/dL (74-106); Total Protein 8.2 g/dL (5.7-8.2)
[2025-08-13 22:59] VITALS: BP 143/101; PULSE 111; RESP 18; TEMP 98.7; O2SAT 97
[2025-08-14] VITALS (11 sets, daily range): BP systolic 112–113; BP diastolic 65–75; PULSE 80–99; RESP 16–25; TEMP 97.8–97.9; O2SAT 97–100
[2025-08-14] MEDS: ENOXAPARIN SOD 40 MG/0.4 ML SYRINGE SC ONE (01:36)
[2025-08-14] MEDS: VANCOMYCIN 1GM/250ML KIT 250 ML IV ONE (01:36)
[2025-08-14 04:17] LABS: COVID19 ANTIGEN SOFIA FIA NEGATIVE (NEGATIVE)
[2025-08-14] MEDS: PIPERACILLIN-TAZOB 3.375GM 100 ML IV SCH (06:06)
--- NOTE | 2025-08-14 06:38 | ECG ---
[facility] Test Date: 2025-08-13 Test Time: 13:55:21 Pat Name: SANTOS BATEMAN Department: [facility] ED Patient ID: [id number] Room: 0294T Gender: F [employer] Supervisor: hillary : [id number] Requested By: JASMYNE RAINEY Order Number: [id number] Reading MD: Irvin Olmos Measurements Intervals [place] Rate: 108 P: 83 [place]: 129 QRS: -31 QRSD: 78 T: 59 QT: 323 QTc: 433 Interpretive Statements Sinus tachycardia Atrial premature complex Probable left atrial enlargement Left axis deviation Anteroseptal infarct, age indeterminate Electronically Signed On 08-15-2025 9:54:15 PDT by Irvin Olmso Please click the below link to view image of tracing.
[2025-08-14 10:05] LABS: Nucleated Red Blood Cells % 0.0 %
[2025-08-14 10:07] LABS: Hematocrit 35.4 % (36.0-46.0); Hemoglobin 11.3 g/dL (12.2-16.2); Mean Corpuscular Hemoglobin 25.6 pg (28.0-32.0); Mean Corpuscular Volume 80.5 fL (80.0-100.0)
[2025-08-14 10:21] LABS: Albumin 3.7 g/dL (3.2-4.8); Alkaline Phosphatase 83 U/L (46-116); Anion Gap 8 (5-15); BUN/Creatinine Ratio 20.3 (10.0-20.0); Blood Urea Nitrogen 13 mg/dL (9-23); Calcium 8.7 mg/dL (8.7-10.4); Carbon Dioxide 28 mmol/L (20-31); Chloride 101 mmol/L (98-107); Magnesium 2.0 mg/dL (1.6-2.6); Potassium 4.5 mmol/L (3.5-5.1); Sodium 137 mmol/L (136-145); Total Protein 7.0 g/dL (5.7-8.2)
[2025-08-14 10:22] LABS: Bilirubin, Total 0.5 mg/dL (0.2-1.0)
[2025-08-14] MEDS: predniSONE 20 MG TAB PO SCH (10:23)
[2025-08-14 10:28] LABS: Alanine Aminotransferase < 9 U/L (7-40); Glucose 134 mg/dL (74-106)
[2025-08-14 14:39] LABS: Urine Protein, UAD TRACE (Negative)
--- NOTE | 2025-08-14 15:23 | DVHPN2 ---
Subjective Patient continues to report having shortness of breath. Reviewed: Care Plan, H&P, Labs, Medications Changes from previous H/P or p: No Changes General: Per HPI Objective Vitals Vital Signs Date Time Temp Pulse Resp B/P (MAP) Pulse Ox O2 Delivery O2 Flow Rate FiO2 08/14/25 13:20 72 18 115/68 (84) 98 08/14/25 10:09 Nasal Cannula 2.0 08/14/25 10:09 28 08/14/25 07:23 97.7 97.7 Intake/Output Intake and Output 08/14/25 07:00 Intake Total 100 ml Balance 100 ml Intake IV Total 100 ml General Appearance: Alert, Oriented X3, Cooperative, mild distress HEENT: Atraumatic, PERRLA Lungs: Other (Inspiratory wheezing, expiratory rhonchi) Cardiovascular: Normal S1, Normal S2 Musculoskeletal: Normal sensory function, Normal motor function Neuro: Normal gait, Normal speech Skin: Dry, Intact Psych/Mental Status: Mental status NL, Mood NL Medications Current Medications Medications Dose Ordered Sig/Benito Route Start Time Stop Time Status Last Admin Dose Admin Piperacillin Sod/ Tazobactam Sod 100 ml @ 25 mls/hr Q8H IV 08/14/25 02:00 08/14/25 10:23 25 MLS/HR Prednisone 40 mg DAILY PO 08/14/25 10:00 08/14/25 10:23 40 MG Guaifenesin 200 mg Q6HR PO 08/14/25 18:00 Albuterol 2.5 mg Q6HWA NEB 08/14/25 18:00 Ipratropium [place] 0.5 mg Q6HWA NEB 08/14/25 18:00 Laboratory Results Laboratory Tests 08/14/25 09:40 Chemistry Test 08/13/25 15:21 08/13/25 21:35 08/14/25 09:40 Calcium Level 9.2 mg/dL (8.7-10.4) 9.0 mg/dL (8.7-10.4) 8.7 mg/dL (8.7-10.4) Albumin 4.2 g/dL (3.2-4.8) 3.7 g/dL (3.2-4.8) Total Protein 8.2 g/dL (5.7-8.2) 7.0 g/dL (5.7-8.2) Magnesium Level 2.0 mg/dL (1.6-2.6) Coagulation Test 08/13/25 21:35 D-Dimer, Quantitative 0.93 mg/L FEU (0.0-0.49) H Cardiac Markers Test 08/13/25 21:35 B-Type Natriuretic Peptide 105.59 pg/mL (0-100) LFT Test 08/13/25 21:35 08/14/25 09:40 Alanine Aminotransferase (ALT) 11 U/L (7-40) < 9 U/L (7-40) Alkaline Phosphatase 101 U/L (46-116) 83 U/L (46-116) Aspartate Amino Transferase (AST) 22 U/L (13-40) 17 U/L (13-40) Total Bilirubin 0.7 mg/dL (0.2-1.0) 0.5 mg/dL (0.2-1.0) HgA1c, TSH Test 08/13/25 21:35 Thyroid Stimulating Hormone (TSH) 3.72 uIU/mL (0.55-4.78) Urinalysis Test 08/13/25 21:02 Urine Color Yellow (Yellow) Urine Clarity Clear (Clear) Urine pH 5.5 (5.0-9.0) Urine Specific [place] 1.036 (1.001-1.035) Urine Protein Trace (Negative) H Urine Ketones Trace (Negative) Urine Blood Negative /uL (Negative) Urine Nitrite Negative (Negative) Urine Bilirubin Negative (Negative) Urine Urobilinogen Normal mg/dL (Negative) Urine Leukocyte Esterase Negative /uL (Negative) Urine RBC 1 /hpf (0 - 4) Urine Microscopic WBC 2 /HPF (0-5) Urine Squamous Epithelial Cells Few /hpf (<5) Urine Bacteria None seen /hpf (None Seen) Urine Glucose Normal mg/dL (Normal) Labs and/or images reviewed: Labs reviewed by me, Image(s) reviewed by me Assessment/Plan Assessment/Plan Impression: -acute hypoxic respiratory failure -probable community-acquired pneumonia, Gram-positive/Gram-negative etiology, history of Pseudomonas aeruginosa -pulmonary cachexia -? COPD Plan: -continue antibiotic therapy with Zosyn, add azithromycin -continue prednisone 40 mg p.o. daily -DuoNebs q.6 hours, add Pulmicort 0.5 mg b.i.d. -antitussives -pulmonology consultation: Discussed case with Dr. Gustafson -repeat labs in a.m. Total time spent with patient discussing and formulating plan of care: 35 minutes. This medical document was created using an electronic medical record system with [employer] dictation system. Although this document has been carefully reviewed, there may still be some phonetic and typographical errors. These areas are purely typographical due to imperfections of the software programs, and do not reflect any compromise in the patient's medical care. Plan discussed with: Patient, Other (RN) My Orders Orders - AYDEN PAREKH NP Procedure Category Date Status Time Albuterol Medneb PHA 08/14/25 In Process (Ventolin Medneb) 18:00 Ipratropium Medneb PHA 08/14/25 In Process (Atrovent Medneb) 18:00 Date of Service: Aug 14, 2025 Billing Provider: AYDEN PAREKH NP Common Visit Codes: [id number] INP/OBS CARE(HIGH) AYDEN PAREKH NP Aug 14, 2025 15:23
[2025-08-14] MEDS ORDERED: ALBUTEROL SULF 2.5 MG/0.5ML(0.5%) NEB SOLN NEB PRN (15:30)
[2025-08-14] MEDS ORDERED: ONDANSETRON HCL 4 MG/2 ML VIAL IV PRN (15:30)
[2025-08-14] MEDS: ALBUTEROL SULF 2.5 MG/0.5ML(0.5%) NEB SOLN ONE (15:51)
[2025-08-14] MEDS: IPRATROPIUM BROM 0.5 MG/2.5ML INH SOL NEB SCH (18:42)
[2025-08-14] MEDS: ALBUTEROL SULF 2.5 MG/0.5ML(0.5%) NEB SOLN NEB SCH (18:42)
[2025-08-14] MEDS: BUDESONIDE (INHALATION) 0.5 MG/2 ML NEB NEB SCH (18:42)
--- NOTE | 2025-08-14 20:54 | DVHPN2 ---
Subjective Patient seen and examined at bedside. Remains on supplemental oxygen Overnight events reviewed. Reviewed: Care Plan, H&P, Labs, Medications Changes from previous H/P or p: No Changes General: Per HPI Objective Vitals Vital Signs Date Time Temp Pulse Resp B/P (MAP) Pulse Ox O2 Delivery O2 Flow Rate FiO2 08/14/25 18:59 97.9 99 18 113/65 (81) 99 97.9 08/14/25 18:42 Nasal Cannula 2.0 08/14/25 18:42 28 Intake/Output Intake and Output 08/14/25 07:00 Intake Total 100 ml Balance 100 ml Intake IV Total 100 ml General Appearance: Alert, Oriented X3, Cooperative, No acute distress HEENT: Atraumatic, PERRLA, EOMI Lungs: Other (No wheezing, scattered rhonchi) Cardiovascular: Regular rate, Normal S1, Normal S2 Abdomen: Normal bowel sounds, Soft, No tenderness Musculoskeletal: Normal sensory function, Normal motor function Extremities: No clubbing, No cyanosis, No edema Neuro: Normal gait, Normal speech, Strength at 5/5 X4 ext, Cranial nerves 3-12 NL Skin: No Breakdown, No Bruising, No Significant Lesion, No Cyanosis; Dry, I ntact; No Petechiae, No Rashes; Warm; No Wounds, No Other Psych/Mental Status: Mental status NL, Mood NL Medications Current Medications Medications Dose Ordered Sig/Benito Route Start Time Stop Time Status Last Admin Dose Admin Piperacillin Sod/ Tazobactam Sod 100 ml @ 25 mls/hr Q8H IV 08/14/25 02:00 08/14/25 18:37 25 MLS/HR Prednisone 40 mg DAILY PO 08/14/25 10:00 08/14/25 10:23 40 MG Guaifenesin 200 mg Q6HR PO 08/14/25 18:00 08/14/25 18:37 200 MG Albuterol 2.5 mg Q6HWA NEB 08/14/25 18:00 08/14/25 18:42 2.5 MG Ipratropium [place] 0.5 mg Q6HWA NEB 08/14/25 18:00 08/14/25 18:42 0.5 MG Acetaminophen/ Hydrocodone Bitart 1 tab Q6HPRN PRN PO 08/14/25 15:30 Acetaminophen 500 mg Q8HP PRN PO 08/14/25 15:30 Ondansetron HCl 4 mg Q6HP PRN IV 08/14/25 15:30 Albuterol 2.5 mg Q4HPRN PRN NEB 08/14/25 15:30 Budesonide 0.5 mg BID NEB 08/14/25 22:00 08/14/25 18:42 0.5 MG Azithromycin 500 mg DAILY PO 08/15/25 10:00 Laboratory Results Laboratory Tests 08/14/25 09:40 Chemistry Test 08/13/25 21:35 08/14/25 09:40 Albumin 4.2 g/dL (3.2-4.8) 3.7 g/dL (3.2-4.8) Calcium Level 9.0 mg/dL (8.7-10.4) 8.7 mg/dL (8.7-10.4) Total Protein 8.2 g/dL (5.7-8.2) 7.0 g/dL (5.7-8.2) Magnesium Level 2.0 mg/dL (1.6-2.6) Coagulation Test 08/13/25 21:35 D-Dimer, Quantitative 0.93 mg/L FEU (0.0-0.49) H Cardiac Markers Test 08/13/25 21:35 B-Type Natriuretic Peptide 105.59 pg/mL (0-100) LFT Test 08/13/25 21:35 08/14/25 09:40 Alanine Aminotransferase (ALT) 11 U/L (7-40) < 9 U/L (7-40) Alkaline Phosphatase 101 U/L (46-116) 83 U/L (46-116) Aspartate Amino Transferase (AST) 22 U/L (13-40) 17 U/L (13-40) Total Bilirubin 0.7 mg/dL (0.2-1.0) 0.5 mg/dL (0.2-1.0) HgA1c, TSH Test 08/13/25 21:35 Thyroid Stimulating Hormone (TSH) 3.72 uIU/mL (0.55-4.78) Urinalysis Test 08/13/25 21:02 Urine Color Yellow (Yellow) Urine Clarity Clear (Clear) Urine pH 5.5 (5.0-9.0) Urine Specific [place] 1.036 (1.001-1.035) Urine Protein Trace (Negative) H Urine Ketones Trace (Negative) Urine Blood Negative /uL (Negative) Urine Nitrite Negative (Negative) Urine Bilirubin Negative (Negative) Urine Urobilinogen Normal mg/dL (Negative) Urine Leukocyte Esterase Negative /uL (Negative) Urine RBC 1 /hpf (0 - 4) Urine Microscopic WBC 2 /HPF (0-5) Urine Squamous Epithelial Cells Few /hpf (<5) Urine Bacteria None seen /hpf (None Seen) Urine Glucose Normal mg/dL (Normal) Assessment/Plan Assessment/Plan Impression: Sepsis 2/2 multifocal pneumonia Acute on chronic hypoxic respiratory failure Multifocal pneumonia likely Gram-negative Atelectasis COPD Bronchiectasis exacerbation Interstitial lung disease, chronic Leucocytosis Events: Remains on supplemental oxygen, 3 LPM NC Taper O2 as tolerated Continue bronchodilators PRN Continue antibiotics WBC trended down to 12.6 Antitussive PRN cough. Incentive spirometry Patient is feeling better today. Can consider discharge if WBC continues to trend down + no fevers over the next 24 hours. Labs and imaging reviewed. Rest of plan as noted below. Plan: Recommend inpatient admission for IV antibiotics. Prior pseudomonal infection in 01/2025 required prolonged antibiotic IV. Supplemental oxygen Keep O2 saturation above 92%. Increasing O2 requirements. Reviewed chest x-ray from August 11, 2025 and compared to August 13, 2025. Interval worsening in bilateral opacities consistent with multifocal pneumonia. Leucocytosis with left shift IV antibiotics Send sputum for Gram stain and culture Bronchodilators DVT prophylaxis Prognosis: Poor given multiple comorbidities. Rest of plan per hospitalist and other consultants. Thank you Dr. Jones for allowing me to participate in this patient's care. Further recommendations will depend on patient's clinical course. Please do not hesitate to contact me if you have any questions or concerns. This medical document was created using an electronic medical record system with [employer] dictation system. Although this document has been carefully reviewed, there may still be some phonetic and typographical errors. These areas are purely typographical due to imperfections of the software programs, and do not reflect any compromise in the patient's medical care. Plan discussed with: Patient, Other (SHAUNA Dasilva) My Orders Orders - LOBO ZENG MD Procedure Category Date Status Time Regular Diet DIET 08/14/25 Transmitted Lunch Guaifenesin Plain PHA 08/14/25 In Process Liquid (Robitussin [place] 18:00 Date of Service: Aug 14, 2025 Billing Provider: LOBO ZENG MD Common Visit Codes: [id number] INP/OBS CARE(HIGH) LOBO ZENG MD Aug 14, 2025 20:54
[2025-08-15] VITALS (17 sets, daily range): BP systolic 100–125; BP diastolic 62–81; PULSE 66–105; RESP 16–24; TEMP 97.5–98; O2SAT 92–100
[2025-08-15] MEDS: HYDROcodone-ACET 5/325MG TAB PO PRN (04:24)
[2025-08-15] MEDS: ACETAMINOPHEN 500 MG TAB or CAP PO PRN (04:26)
[2025-08-15] MEDS: AZITHROMYCIN 250 MG TAB PO SCH (10:00)
--- NOTE | 2025-08-15 11:38 | DVHPN2 ---
Subjective Patient continues to report having shortness of breath. Reviewed: Care Plan, H&P, Labs, Medications Changes from previous H/P or p: No Changes General: Per HPI Objective Vitals Vital Signs Date Time Temp Pulse Resp B/P (MAP) Pulse Ox O2 Delivery O2 Flow Rate FiO2 08/15/25 09:00 97.6 83 20 100/62 (75) 93 97.6 08/15/25 06:20 Room Air 0.0 08/15/25 06:20 21 Intake/Output Intake and Output 08/15/25 07:00 Intake Total 550 ml Balance 550 ml Intake Oral 450 ml IV Total 100 ml # Voids 1 General Appearance: Alert, Oriented X3, Cooperative, No acute distress HEENT: Atraumatic, PERRLA, EOMI Lungs: Other (No wheezing, scattered rhonchi) Cardiovascular: Regular rate, Normal S1, Normal S2 Abdomen: Normal bowel sounds, Soft, No tenderness Musculoskeletal: Normal sensory function, Normal motor function Extremities: No clubbing, No cyanosis, No edema Neuro: Normal gait, Normal speech, Strength at 5/5 X4 ext, Cranial nerves 3-12 NL Skin: No Breakdown, No Bruising, No Significant Lesion, No Cyanosis; Dry, I ntact; No Petechiae, No Rashes; Warm; No Wounds, No Other Psych/Mental Status: Mental status NL, Mood NL Medications Current Medications Medications Dose Ordered Sig/[place] Route Start Time Stop Time Status Last Admin Dose Admin Piperacillin Sod/ Tazobactam Sod 100 ml @ 25 mls/hr Q8H IV 08/14/25 02:00 08/15/25 02:01 25 MLS/HR Prednisone 40 mg DAILY PO 08/14/25 10:00 08/14/25 10:23 40 MG Guaifenesin 200 mg Q6HR PO 08/14/25 18:00 08/15/25 06:17 200 MG Albuterol 2.5 mg Q6HWA NEB 08/14/25 18:00 08/15/25 06:20 2.5 MG Ipratropium [place] 0.5 mg Q6HWA NEB 08/14/25 18:00 08/15/25 06:20 0.5 MG Acetaminophen/ Hydrocodone Bitart 1 tab Q6HPRN PRN PO 08/14/25 15:30 08/15/25 04:24 1 TAB Acetaminophen 500 mg Q8HP PRN PO 08/14/25 15:30 Ondansetron HCl 4 mg Q6HP PRN IV 08/14/25 15:30 Albuterol 2.5 mg Q4HPRN PRN NEB 08/14/25 15:30 Budesonide 0.5 mg BID NEB 08/14/25 22:00 08/15/25 06:20 0.5 MG Azithromycin 500 mg DAILY PO 08/15/25 10:00 Laboratory Results Laboratory Tests 08/14/25 09:40 Urinalysis Test 08/13/25 21:02 Urine Color Yellow (Yellow) Urine Clarity Clear (Clear) Urine pH 5.5 (5.0-9.0) Urine Specific [place] 1.036 (1.001-1.035) Urine Protein Trace (Negative) H Urine Ketones Trace (Negative) Urine Blood Negative /uL (Negative) Urine Nitrite Negative (Negative) Urine Bilirubin Negative (Negative) Urine Urobilinogen Normal mg/dL (Negative) Urine Leukocyte Esterase Negative /uL (Negative) Urine RBC 1 /hpf (0 - 4) Urine Microscopic WBC 2 /HPF (0-5) Urine Squamous Epithelial Cells Few /hpf (<5) Urine Bacteria None seen /hpf (None Seen) Urine Glucose Normal mg/dL (Normal) Labs and/or images reviewed: Labs reviewed by me, Image(s) reviewed by me Assessment/Plan Assessment/Plan Impression: -acute hypoxic respiratory failure -probable community-acquired pneumonia, Gram-positive/Gram-negative etiology, history of Pseudomonas aeruginosa -pulmonary cachexia -? COPD Plan: Events: Patient states that per symptoms have improved. Continues to have cough, wheezing. Room air oxygen saturation noted to be 90%. We will order room air ABG. Continue current treatment plan -continue antibiotic therapy with Zosyn, add azithromycin -continue prednisone 40 mg p.o. daily -DuoNebs q.6 hours, add Pulmicort 0.5 mg b.i.d. -antitussives -pulmonology consultation: Discussed case with Dr. Gustafson -repeat BMP today Total time spent with patient discussing and formulating plan of care: 35 minutes. This medical document was created using an electronic medical record system with [employer] dictation system. Although this document has been carefully reviewed, there may still be some phonetic and typographical errors. These areas are purely typographical due to imperfections of the software programs, and do not reflect any compromise in the patient's medical care. Plan discussed with: Patient, Other (RN) My Orders Orders - AYDEN PAREKH NP Procedure Category Date Status Time Albuterol Medneb PHA 08/14/25 In Process (Ventolin Medneb) 18:00 Ipratropium Medneb PHA 08/14/25 In Process (Atrovent Medneb) 18:00 Hydrocodone-Acet PHA 08/14/25 In Process 5/325mg Tab ([place] 15:30 Acetaminophen Tab Or PHA 08/14/25 In Process Cap (Tylenol Tablet 15:30 Ondansetron Hcl PHA 08/14/25 In Process (Zofran) 15:30 Albuterol Medneb PHA 08/14/25 In Process (Ventolin Medneb) 15:30 Budesonide PHA 08/14/25 In Process (Inhalation) 22:00 Azithromycin Tablet PHA 08/15/25 In Process (Zithromax Tablet) 10:00 Complete Blood Count LAB 08/15/25 Logged 11:03 Abg W/ Co-Ox RT 08/15/25 Logged 11:33 Date of Service: Aug 15, 2025 Billing Provider: AYDEN PAREKH NP Common Visit Codes: [id number] INP/OBS CARE(HIGH) AYDEN PAREKH NP Aug 15, 2025 11:38
[2025-08-15 11:52] LABS: Base Excess 3.3 mmol/L (-2.0-3.0)
[2025-08-15 12:41] LABS: Hematocrit 37.0 % (36.0-46.0); Hemoglobin 11.5 g/dL (12.2-16.2); Mean Corpuscular Hemoglobin 25.6 pg (28.0-32.0); Mean Corpuscular Volume 82.4 fL (80.0-100.0); Nucleated Red Blood Cells % 0.0 %
--- NOTE | 2025-08-15 20:55 | DVHPN2 ---
Subjective DOS: 08/15/2025 Patient seen and examined at bedside. Remains on supplemental oxygen Overnight events reviewed. Reviewed: Care Plan, H&P, Labs, Medications Changes from previous H/P or p: No Changes General: Per HPI Objective Vitals Vital Signs Date Time Temp Pulse Resp B/P (MAP) Pulse Ox O2 Delivery O2 Flow Rate FiO2 08/15/25 18:51 82 18 100 08/15/25 18:41 Room Air* 0 21 08/15/25 16:57 98.0 120/74 (89) 98.0 Intake/Output Intake and Output 08/15/25 07:00 Intake Total 550 ml Balance 550 ml Intake Oral 450 ml IV Total 100 ml # Voids 1 General Appearance: Alert, Oriented X3, Cooperative, No acute distress HEENT: Atraumatic, PERRLA, EOMI Lungs: Other (No wheezing, scattered rhonchi) Cardiovascular: Regular rate, Normal S1, Normal S2 Abdomen: Normal bowel sounds, Soft, No tenderness Musculoskeletal: Normal sensory function, Normal motor function Extremities: No clubbing, No cyanosis, No edema Neuro: Normal gait, Normal speech, Strength at 5/5 X4 ext, Cranial nerves 3-12 NL Skin: No Breakdown, No Bruising, No Significant Lesion, No Cyanosis; Dry, I ntact; No Petechiae, No Rashes; Warm; No Wounds, No Other Psych/Mental Status: Mental status NL, Mood NL Medications Current Medications Medications Dose Ordered Sig/[place] Route Start Time Stop Time Status Last Admin Dose Admin Piperacillin Sod/ Tazobactam Sod 100 ml @ 25 mls/hr Q8H IV 08/14/25 02:00 08/15/25 18:00 25 MLS/HR Prednisone 40 mg DAILY PO 08/14/25 10:00 08/15/25 10:00 40 MG Guaifenesin 200 mg Q6HR PO 08/14/25 18:00 08/15/25 18:00 200 MG Albuterol 2.5 mg Q6HWA NEB 08/14/25 18:00 08/15/25 18:40 2.5 MG Ipratropium [place] 0.5 mg Q6HWA NEB 08/14/25 18:00 08/15/25 18:40 0.5 MG Acetaminophen/ Hydrocodone Bitart 1 tab Q6HPRN PRN PO 08/14/25 15:30 08/15/25 04:24 1 TAB Acetaminophen 500 mg Q8HP PRN PO 08/14/25 15:30 Ondansetron HCl 4 mg Q6HP PRN IV 08/14/25 15:30 Albuterol 2.5 mg Q4HPRN PRN NEB 08/14/25 15:30 Budesonide 0.5 mg BID NEB 08/14/25 22:00 08/15/25 18:41 0.5 MG Azithromycin 500 mg DAILY PO 08/15/25 10:00 08/15/25 10:00 500 MG Laboratory Results Laboratory Tests 08/14/25 09:40 08/15/25 11:28 Urinalysis Test 08/13/25 21:02 Urine Color Yellow (Yellow) Urine Clarity Clear (Clear) Urine pH 5.5 (5.0-9.0) Urine Specific [place] 1.036 (1.001-1.035) Urine Protein Trace (Negative) H Urine Ketones Trace (Negative) Urine Blood Negative /uL (Negative) Urine Nitrite Negative (Negative) Urine Bilirubin Negative (Negative) Urine Urobilinogen Normal mg/dL (Negative) Urine Leukocyte Esterase Negative /uL (Negative) Urine RBC 1 /hpf (0 - 4) Urine Microscopic WBC 2 /HPF (0-5) Urine Squamous Epithelial Cells Few /hpf (<5) Urine Bacteria None seen /hpf (None Seen) Urine Glucose Normal mg/dL (Normal) Blood Gas Results Test 08/15/25 11:44 Arterial Blood pH 7.408 (7.350-7.450) FiO2 % 21.0 Assessment/Plan Assessment/Plan Impression: Sepsis 2/2 multifocal pneumonia Acute on chronic hypoxic respiratory failure Multifocal pneumonia likely Gram-negative Atelectasis COPD Bronchiectasis exacerbation Interstitial lung disease, chronic Leucocytosis Events: Currently on supplemental oxygen, 2 LPM NC Improving oxygen requirements. Continue to taper O2 as tolerated Of note, patient's IV infiltrated and was changed by RN. Continue IV antibiotics WBC trended up to 19.4 Continue bronchodilators PRN Antitussive PRN cough. Incentive spirometry Patient is feeling better today. We will obtain chest x-ray in the AM to assess interval changes. Labs and imaging reviewed. Rest of plan as noted below. Plan: Recommend inpatient admission for IV antibiotics. Prior pseudomonal infection in 01/2025 required prolonged antibiotic IV. Supplemental oxygen Keep O2 saturation above 92%. Reviewed chest x-ray from August 11, 2025 and compared to August 13, 2025. Interval worsening in bilateral opacities consistent with multifocal pneumonia. Leucocytosis with left shift IV antibiotics Send sputum for Gram stain and culture Bronchodilators DVT prophylaxis Prognosis: Poor given multiple comorbidities. Rest of plan per hospitalist and other consultants. Thank you Dr. Jones for allowing me to participate in this patient's care. Further recommendations will depend on patient's clinical course. Please do not hesitate to contact me if you have any questions or concerns. This medical document was created using an electronic medical record system with [employer] dictation system. Although this document has been carefully reviewed, there may still be some phonetic and typographical errors. These areas are purely typographical due to imperfections of the software programs, and do not reflect any compromise in the patient's medical care. Plan discussed with: Patient, Other (SHAUNA Pritchard) Date of Service: Aug 15, 2025 Billing Provider: LOBO ZENG MD Common Visit Codes: [id number] INP/OBS CARE(HIGH) LOBO ZENG MD Aug 15, 2025 20:55
[2025-08-16] VITALS (15 sets, daily range): BP systolic 104–142; BP diastolic 65–78; PULSE 69–114; RESP 16–22; TEMP 97.7–98.6; O2SAT 89–100
[2025-08-16 09:54] LABS: Hematocrit 37.0 % (36.0-46.0); Hemoglobin 11.8 g/dL (12.2-16.2); Mean Corpuscular Hemoglobin 26.7 pg (28.0-32.0); Mean Corpuscular Volume 83.5 fL (80.0-100.0); Nucleated Red Blood Cells % 0.1 %
[2025-08-16 09:57] LABS: Anion Gap 6 (5-15); Chloride 102 mmol/L (98-107); Potassium 3.7 mmol/L (3.5-5.1); Sodium 140 mmol/L (136-145)
[2025-08-16 10:02] LABS: Glucose 96 mg/dL (74-106)
[2025-08-16 10:03] LABS: BUN/Creatinine Ratio 12.8 (10.0-20.0); Blood Urea Nitrogen 10 mg/dL (9-23); Magnesium 1.8 mg/dL (1.6-2.6)
[2025-08-16 10:11] LABS: Calcium 8.4 mg/dL (8.7-10.4); Carbon Dioxide 32 mmol/L (20-31)
--- NOTE | 2025-08-16 10:17 | DVH ---
XY CHEST TWO VIEWS ROUTINE CLINICAL HISTORY: pna COMPARISON: XY CHEST PORTABLE on DOS: 08/13/25, XY CHEST PORTABLE on DOS: 08/11/25, XY CHEST PORTABLE o n DOS: 02/26/25, XY CHEST PORTABLE on DOS: 02/24/25, XY CHEST PORTABLE on DOS: 02/21/25, XY CHEST PORTAB LE on DOS: 08/13/25 TECHNIQUE: Single frontal view of the chest was obtained FINDINGS: Lines and Tubes: None Lungs: Chronic pulmonary fibrotic changes bilaterally not significantly changed from 08/11/2025 Pleura: No effusion. No pneumothorax. Cardiomediastinal contours: Unremarkable Bones: No acute osseous abnormality. IMPRESSION: No interval change. Chronic interstitial fibrosis.
--- NOTE | 2025-08-16 10:54 | DVHDS2 ---
Discharge Summary Date of Admission Aug 13, 2025 at 21:02 Date of Discharge: Aug 16, 2025 Admitting Diagnosis Acute on chronic hypoxic respiratory failure Labs/Diagnostic Data: Laboratory Results Test 08/16/25 09:18 08/15/25 11:44 08/14/25 09:40 08/14/25 02:55 White Blood Count 17.7 10^3/uL (4.4-10.8) Red Blood Count 4.43 10^6/uL (4.0-5.20) Hemoglobin 11.8 g/dL (12.2-16.2) Hematocrit 37.0 % (36.0-46.0) Mean Corpuscular Volume 83.5 fL (80.0-100.0) Mean Corpuscular Hemoglobin 26.7 pg (28.0-32.0) Mean Corpuscular Hemoglobin Concent 31.9 g/dL (32.0-36.0) Red Cell Distribution Width 16.7 % (11.8-14.3) Platelet Count 540 10^3/uL (140-450) Mean Platelet Volume 8.1 fL (6.9-10.8) Neutrophils (%) (Auto) 80.9 % (37.0-80.0) Lymphocytes (%) (Auto) 10.9 % (10.0-50.0) Monocytes (%) (Auto) 7.9 % (0.0-12.0) Eosinophils (%) (Auto) 0.0 % (0.0-7.0) Basophils (%) (Auto) 0.3 % (0.0-2.0) Neutrophils # (Auto) 14.3 10 ^3/uL (1.6-8.6) Lymphocytes # (Auto) 1.9 10 ^3/uL (0.4-5.4) Monocytes # (Auto) 1.4 10 ^3/uL (0-1.3) Eosinophils # (Auto) 0 10 ^3/uL (0-0.8) Basophils # (Auto) 0.1 10 ^3/uL (0-0.2) Nucleated Red Blood Cells 0.1 % Sodium Level 140 mmol/L (136-145) Potassium Level 3.7 mmol/L (3.5-5.1) Chloride Level 102 mmol/L (98-107) Carbon Dioxide Level 32 mmol/L (20-31) Anion Gap 6 (5-15) Blood Urea Nitrogen 10 mg/dL (9-23) Creatinine 0.78 mg/dL (0.550-1.02) Glomerular Filtration Rate Calc 78 mL/min (>90) BUN/Creatinine Ratio 12.8 (10.0-20.0) Serum Glucose 96 mg/dL (74-106) Calcium Level 8.4 mg/dL (8.7-10.4) Magnesium Level 1.8 mg/dL (1.6-2.6) Blood Gas Specimen Type Arterial Blood Gas Sample Site Left radial Blood Gas Patient Temperature 37.0 Arterial Blood Date Drawn [id number] Arterial Blood pH 7.408 (7.350-7.450) Arterial Blood Partial Pressure CO2 46.4 mmHg (32.0-45.0) Arterial Blood Partial Pressure O2 40.1 mmHg (83.0-108.0) Arterial Blood HCO3 28.6 mmol/L (21.0-28.0) Arterial Blood Oxygen Saturation 72.4 % (94.0-98.0) Arterial Blood Base Excess 3.3 mmol/L (-2.0-3.0) Arterial Blood Oxyhemoglobin 71.7 % (94.0-98.0) Arterial Blood Carboxyhemoglobin 0.5 % (0.5-1.5) Arterial Blood Methemoglobin 0.5 % (0.0-1.5) Sagar Test Yes Blood Gas Total Hemoglobin 12.60 g/dL (12.0-16.0) Blood Gas Liter Flow 0.00 Blood Gas Modality Room air FiO2 % 21.0 Blood Gas Critical Value Read Back Yes Blood Gas Notified Whom Nikita dunlap Blood Gas Notified Time [id number] Blood Gas Notified By Kelle morales Total Bilirubin 0.5 mg/dL (0.2-1.0) Aspartate Amino Transferase (AST) 17 U/L (13-40) Alanine Aminotransferase (ALT) < 9 U/L (7-40) Alkaline Phosphatase 83 U/L (46-116) Total Protein 7.0 g/dL (5.7-8.2) Albumin 3.7 g/dL (3.2-4.8) Influenza Type A Antigen Negative (Negative) Influenza Type B Antigen Negative (Negative) SARS-CoV-2 Antigen (Rapid) Negative (NEGATIVE) Test 08/13/25:35 08/13/25 21:02 D-Dimer, Quantitative 0.93 mg/L FEU (0.0-0.49) Troponin I High Sensitivity < 3 ng/L (</=34) B-Type Natriuretic Peptide 105.59 pg/mL (0-100) Thyroid Stimulating Hormone (TSH) 3.72 uIU/mL (0.55-4.78) Urine Color Yellow (Yellow) Urine Clarity Clear (Clear) Urine pH 5.5 (5.0-9.0) Urine Specific [place] 1.036 (1.001-1.035) Urine Protein Trace (Negative) Urine Ketones Trace (Negative) Urine Blood Negative /uL (Negative) Urine Nitrite Negative (Negative) Urine Bilirubin Negative (Negative) Urine Urobilinogen Normal mg/dL (Negative) Urine Leukocyte Esterase Negative /uL (Negative) Urine RBC 1 /hpf (0 - 4) Urine Microscopic WBC 2 /HPF (0-5) Urine Squamous Epithelial Cells Few /hpf (<5) Urine Bacteria None seen /hpf (None Seen) Urine Glucose Normal mg/dL (Normal) Other Laboratory Tests 08/16/25 09:18 Brief Hx & Hospital Course: History of Present Illness 75-year-old female with past medical history of COPD and hypertension presented with complaint of shortness of breath that started yesterday. Patient was seen in the ED on 08/11/2025 for shortness of present productive cough, was diagnosed with chronic bronchitis and was admitted and discharged the same day. Patient was walking up the stairs at [facility] when she began experiencing shortness of breath, experienced a near-syncopal episode, rapid response was called, brought to ED. On evaluation, patient is currently on 2 L of oxygen, mentioning shortness of breath. Is having saturation 98% on 2 L. Mentions associated cough which is white in color, mentioned no hemoptysis Course of hospitalization: Patient was started on Zosyn given recent history of Pseudomonas pneumonia. Patient was also continued on bronchodilators q.6 hours, mucolytics, inhaled steroids, as well as oral prednisone. Patient had room air ABG with the patient found to be severely hypoxic with a PO2 of 40. Patient is currently on 2 L via nasal cannula with patient having improvement with her clinical status. Discussion was made with the patient regarding discharge planning. Patient will be continued on O2 supplementation at 2 L/min. She will also be continued on IV antibiotic therapy at home with cefepime 2 g daily for a 14 day course. 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 Gustafson within two weeks, as well as her PCP, Dr. Duarte Hernandez in two weeks. She will stop taking previous prescribed oral antibiotics from her recent admission, and continue with all her other home medications including nebulizer treatments. Physical examination General: Alert and Oriented x3. No acute distress. Well-nourished. Eyes: EOMI. Anicteric. HENT: Moist mucous membranes. Lungs: Clear to auscultation bilaterally. No accessory muscle use. Cardiovascular: Regular rate and rhythm. No murmur. No JVD. Abdomen: Soft, non-tender and non-distended. No palpable masses. Extremities: No edema. Non-tender. Skin: No rashes or lesions. Warm. Neurologic: No focal neurological deficits. CN II-XII grossly intact, but not individually tested. Psychiatric: Cooperative. Appropriate mood and affect. Total time spent with patient discussing and formulating plan of care: 35 minutes. This medical document was created using an electronic medical record system with [employer] dictation system. Although this document has been carefully reviewed, there may still be some phonetic and typographical errors. These areas are purely typographical due to imperfections of the software programs, and do not reflect any compromise in the patient's medical care. Consults/Reason for consult Pulmonology: Acute hypoxic respiratory failure Condition at Discharge: Guarded Final Diagnosis/Problems List Acute hypoxic respiratory failure -acute hypoxic respiratory failure -probable community-acquired pneumonia, Gram-positive/Gram-negative etiology, history of Pseudomonas aeruginosa -pulmonary cachexia -COPD Discharge Disposition: Home with Health Services Discharge Instruct/Medications Diet: Regular Activity: No Restrictions, As Tolerated Follow Up/Referral: Follow up with Dr. Gustafson within 1-2 weeks Follow up with PCP, Dr. Thomas in 1-2 weeks Medications: Cefepime 2 g IV piggyback b.i.d. Continue all previous home medications Scheduled Albuterol Sulfate (Ventolin), 2.5 MG NEB Q6H Azithromycin (Azithromycin), 1 TAB PO DAILY Fluticasone-Salmeterol (Advair Diskus 250/50), 1 PUFF INH BID Furosemide (Lasix), 1 TAB PO DAILY Prednisone (Prednisone), 40 MG PO QAM Prednisone (Prednisone), 20 MG PO DAILY Zyvox (Zyvox Tablet), 600 MG PO BID Miscellaneous Medications Xdxxrldzakr-Byqnrdnalhyg-Gyomd (Trelegy Ellipta 100-62.5-25 Mcg/INH), 1 AER IN, (Reported) 36 Discharge Statement: "Patient was advised to return to the ER or call 911 if any headaches, dizziness, shortness of breath, chest pain, abdominal pain, bleeding, fevers, or worsening of medical condition. Patient was counseled about treatment plan, medications, possible side effects, patientverbalized understanding. All questions were answered to the best of my ability. This discharge took greater then 30 minutes in planning, reviewing documentation, counseling the patient, and discussing with other team members." ASSESSMENT ASSESSMENT Assessment Acute hypoxic respiratory failure Date of Service: Aug 16, 2025 Billing Provider: AYDEN PAREKH NP Common Visit Codes: [id number] DISCH DAY >30min AYDEN PAREKH NP Aug 16, 2025 10:54
[2025-08-16] MEDS: predniSONE 20 MG TAB PO SCH (11:17)
[2025-08-16] MEDS: cefTAZidime 1 GM in SODIUM CHL 0.9% 50 ML IV SCH (11:43)
[2025-08-16] MEDS: FUROSEMIDE 20 MG/2 ML VIAL IV ONE (11:55)
[2025-08-16] MEDS ORDERED: CEFEPIME 2GM/50ML NS 50 ML IV ONE (14:45)
[2025-08-16] MEDS: CEFEPIME 2GM/50ML NS 50 ML IV SCH (15:52)
--- NOTE | 2025-08-16 20:14 | DVHPN2 ---
Subjective DOS: 08/16/2025 Patient seen and examined at bedside. Remains on supplemental oxygen Overnight events reviewed. Reviewed: Care Plan, H&P, Labs, Medications Changes from previous H/P or p: No Changes General: Per HPI Objective Vitals Vital Signs Date Time Temp Pulse Resp B/P (MAP) Pulse Ox O2 Delivery O2 Flow Rate FiO2 08/16/25 18:13 102 22 100 08/16/25 18:13 Nasal Cannula* 2 28 08/16/25 17:00 98.1 114/73 (87) 98.1 Intake/Output Intake and Output 08/16/25 06:59 Intake Total 900 ml Output Total 1 ml Balance 899 ml Intake Oral 800 ml IV Total 100 ml Output Stool Total 1 ml # Voids 2 # Bowel Movements 3 General Appearance: Alert, Oriented X3, Cooperative, No acute distress HEENT: Atraumatic, PERRLA, EOMI Lungs: Clear to auscultation, Other (No wheezing or rhonchi.) Cardiovascular: Regular rate, Normal S1, Normal S2 Abdomen: Normal bowel sounds, Soft, No tenderness Musculoskeletal: Normal sensory function, Normal motor function Extremities: No clubbing, No cyanosis, No edema Neuro: Normal gait, Normal speech, Strength at 5/5 X4 ext, Cranial nerves 3-12 NL Skin: No Breakdown, No Bruising, No Significant Lesion, No Cyanosis; Dry, I ntact; No Petechiae, No Rashes; Warm; No Wounds, No Other Psych/Mental Status: Mental status NL, Mood NL Medications Current Medications Medications Dose Ordered Sig/[place] Route Start Time Stop Time Status Last Admin Dose Admin Piperacillin Sod/ Tazobactam Sod 100 ml @ 25 mls/hr Q8H IV 08/14/25 02:00 08/16/25 19:31 25 MLS/HR Guaifenesin 200 mg Q6HR PO 08/14/25 18:00 08/16/25 19:31 200 MG Albuterol 2.5 mg Q6HWA NEB 08/14/25 18:00 08/16/25 18:08 2.5 MG Ipratropium [place] 0.5 mg Q6HWA NEB 08/14/25 18:00 08/16/25 18:08 0.5 MG Acetaminophen/ Hydrocodone Bitart 1 tab Q6HPRN PRN PO 08/14/25 15:30 08/15/25 23:01 1 TAB Acetaminophen 500 mg Q8HP PRN PO 08/14/25 15:30 Ondansetron HCl 4 mg Q6HP PRN IV 08/14/25 15:30 Albuterol 2.5 mg Q4HPRN PRN NEB 08/14/25 15:30 Budesonide 0.5 mg BID NEB 08/14/25 22:00 08/16/25 18:08 0.5 MG Prednisone 20 mg DAILY PO 08/16/25 10:00 08/16/25 11:17 20 MG Cefepime HCl 50 ml @ 12.5 mls/hr Q12H IV 08/16/25 15:30 08/16/25 15:52 12.5 MLS/HR Laboratory Results Laboratory Tests 08/16/25 09:18 Chemistry Test 08/16/25 09:18 Calcium Level 8.4 mg/dL (8.7-10.4) L Magnesium Level 1.8 mg/dL (1.6-2.6) Urinalysis Test 08/13/25 21:02 Urine Color Yellow (Yellow) Urine Clarity Clear (Clear) Urine pH 5.5 (5.0-9.0) Urine Specific [place] 1.036 (1.001-1.035) Urine Protein Trace (Negative) H Urine Ketones Trace (Negative) Urine Blood Negative /uL (Negative) Urine Nitrite Negative (Negative) Urine Bilirubin Negative (Negative) Urine Urobilinogen Normal mg/dL (Negative) Urine Leukocyte Esterase Negative /uL (Negative) Urine RBC 1 /hpf (0 - 4) Urine Microscopic WBC 2 /HPF (0-5) Urine Squamous Epithelial Cells Few /hpf (<5) Urine Bacteria None seen /hpf (None Seen) Urine Glucose Normal mg/dL (Normal) Assessment/Plan Assessment/Plan Impression: Sepsis 2/2 multifocal pneumonia Acute on chronic hypoxic respiratory failure Multifocal pneumonia likely Gram-negative Atelectasis COPD Bronchiectasis exacerbation Interstitial lung disease, chronic Leucocytosis Events: Improved oxygen requirements. Remains on supplemental oxygen, 2 LPM NC Arranged for home oxygen. Chest x-ray reviewed; notable for bilateral interstitial opacities. No acute changes. ABG from 08/15/25 shows PaO2 of 40.1 mmHg. Continue IV antibiotics WBC trended down to 17.7 Neutrophils trending down. Continue bronchodilators Antitussive PRN cough. Incentive spirometry Arranging midline. Patient is stable for discharge from the pulmonary standpoint. We will obtain chest x-ray to assess for interval changes. Follow up in 2 weeks as outpatient. Labs and imaging reviewed. Rest of plan as noted below. Plan: Recommend inpatient admission for IV antibiotics. Prior pseudomonal infection in 01/2025 required prolonged antibiotic IV. Supplemental oxygen Keep O2 saturation above 92%. Reviewed chest x-ray from August 11, 2025 and compared to August 13, 2025. Interval worsening in bilateral opacities consistent with multifocal pneumonia. Leucocytosis with left shift IV antibiotics Send sputum for Gram stain and culture Bronchodilators DVT prophylaxis Prognosis: Poor given multiple comorbidities. Rest of plan per hospitalist and other consultants. Thank you Dr. Jones for allowing me to participate in this patient's care. Further recommendations will depend on patient's clinical course. Please do not hesitate to contact me if you have any questions or concerns. This medical document was created using an electronic medical record system with [employer] dictation system. Although this document has been carefully reviewed, there may still be some phonetic and typographical errors. These areas are purely typographical due to imperfections of the software programs, and do not reflect any compromise in the patient's medical care. Plan discussed with: Patient, Other (SHAUNA Go) My Orders Orders - LOBO ZENG MD Procedure Category Date Status Time Communication Order ORDERS 08/16/25 Transmitted 19:59 Date of Service: Aug 16, 2025 Billing Provider: LOBO ZENG MD Common Visit Codes: [id number] INP/OBS CARE(HIGH) LOBO ZENG MD Aug 16, 2025 20:14
[2025-08-17] VITALS (10 sets, daily range): BP systolic 113–141; BP diastolic 72–87; PULSE 70–100; RESP 16–24; TEMP 97.9–98.7; O2SAT 95–100
--- NOTE | 2025-08-17 12:54 | DVHPN2 ---
Subjective Patient continues to report having shortness of breath. Reviewed: Care Plan, H&P, Labs, Medications Changes from previous H/P or p: No Changes General: Per HPI Objective Vitals Vital Signs Date Time Temp Pulse Resp B/P (MAP) Pulse Ox O2 Delivery O2 Flow Rate FiO2 08/17/25 12:12 94 20 100 08/17/25 09:00 98.7 141/87 (105) 98.7 08/17/25 08:00 Nasal Cannula* 3 32 General Appearance: Alert, Oriented X3, Cooperative, No acute distress HEENT: Atraumatic, PERRLA, EOMI Lungs: Clear to auscultation, Other (No wheezing or rhonchi.) Cardiovascular: Regular rate, Normal S1, Normal S2 Abdomen: Normal bowel sounds, Soft, No tenderness Musculoskeletal: Normal sensory function, Normal motor function Extremities: No clubbing, No cyanosis, No edema Neuro: Normal gait, Normal speech, Strength at 5/5 X4 ext, Cranial nerves 3-12 NL Skin: No Breakdown, No Bruising, No Significant Lesion, No Cyanosis; Dry, I ntact; No Petechiae, No Rashes; Warm; No Wounds, No Other Psych/Mental Status: Mental status NL, Mood NL Medications Current Medications Medications Dose Ordered Sig/[place] Route Start Time Stop Time Status Last Admin Dose Admin Piperacillin Sod/ Tazobactam Sod 100 ml @ 25 mls/hr Q8H IV 08/14/25 02:00 08/17/25 10:12 25 MLS/HR Guaifenesin 200 mg Q6HR PO 08/14/25 18:00 08/17/25 06:01 200 MG Albuterol 2.5 mg Q6HWA NEB 08/14/25 18:00 08/17/25 12:10 2.5 MG Ipratropium [place] 0.5 mg Q6HWA NEB 08/14/25 18:00 08/17/25 12:10 0.5 MG Acetaminophen/ Hydrocodone Bitart 1 tab Q6HPRN PRN PO 08/14/25 15:30 08/15/25 23:01 1 TAB Acetaminophen 500 mg Q8HP PRN PO 08/14/25 15:30 Ondansetron HCl 4 mg Q6HP PRN IV 08/14/25 15:30 Albuterol 2.5 mg Q4HPRN PRN NEB 08/14/25 15:30 Budesonide 0.5 mg BID NEB 08/14/25 22:00 08/17/25 07:26 0.5 MG Prednisone 20 mg DAILY PO 08/16/25 10:00 08/17/25 10:11 20 MG Cefepime HCl 50 ml @ 12.5 mls/hr Q12H IV 08/16/25 15:30 08/17/25 03:05 12.5 MLS/HR Laboratory Results Laboratory Tests 08/16/25 09:18 Urinalysis Test 08/13/25 21:02 Urine Color Yellow (Yellow) Urine Clarity Clear (Clear) Urine pH 5.5 (5.0-9.0) Urine Specific [place] 1.036 (1.001-1.035) Urine Protein Trace (Negative) H Urine Ketones Trace (Negative) Urine Blood Negative /uL (Negative) Urine Nitrite Negative (Negative) Urine Bilirubin Negative (Negative) Urine Urobilinogen Normal mg/dL (Negative) Urine Leukocyte Esterase Negative /uL (Negative) Urine RBC 1 /hpf (0 - 4) Urine Microscopic WBC 2 /HPF (0-5) Urine Squamous Epithelial Cells Few /hpf (<5) Urine Bacteria None seen /hpf (None Seen) Urine Glucose Normal mg/dL (Normal) Labs and/or images reviewed: Labs reviewed by me, Image(s) reviewed by me Assessment/Plan Assessment/Plan Impression: -acute hypoxic respiratory failure -probable community-acquired pneumonia, Gram-positive/Gram-negative etiology, history of Pseudomonas aeruginosa -pulmonary cachexia -? COPD Plan: Events: Patient discharged yesterday. Awaiting DME. Oxygen has arrived bedside. Infusion company now established. Plans for discharge today. -continue antibiotic therapy with Zosyn, add azithromycin -continue prednisone 40 mg p.o. daily -DuoNebs q.6 hours, add Pulmicort 0.5 mg b.i.d. -antitussives -pulmonology consultation: Discussed case with Dr. Gustafson Total time spent with patient discussing and formulating plan of care: 35 minutes. This medical document was created using an electronic medical record system with [employer] system. Although this document has been carefully reviewed, there may still be some phonetic and typographical errors. These areas are purely typographical due to imperfections of the software programs, and do not reflect any compromise in the patient's medical care. Plan discussed with: Patient, Other (RN) My Orders Orders - AYDEN PAREKH NP Procedure Category Date Status Time * Talent Manager CONS 08/16/25 Transmitted Consult Date of Service: Aug 17, 2025 Billing Provider: AYDEN PAREKH NP Common Visit Codes: [id number] INP/OBS CARE(MOD) AYDEN PAREKH NP Aug 17, 2025 12:54
--- NOTE | 2025-08-17 23:35 | DVHPN2 ---
Subjective DOS: 08/17/2025 Patient seen and examined at bedside. Remains on supplemental oxygen Overnight events reviewed. Reviewed: Care Plan, H&P, Labs, Medications Changes from previous H/P or p: No Changes General: Per HPI Objective Vitals Vital Signs Date Time Temp Pulse Resp B/P (MAP) Pulse Ox O2 Delivery O2 Flow Rate FiO2 08/17/25 14:23 98.2 86 16 97 08/17/25 13:00 113/72 (86) 08/17/25 08:00 Nasal Cannula* 3 32 General Appearance: Alert, Oriented X3, Cooperative, No acute distress HEENT: Atraumatic, PERRLA, EOMI Lungs: Clear to auscultation, Other (No wheezing or rhonchi.) Cardiovascular: Regular rate, Normal S1, Normal S2 Abdomen: Normal bowel sounds, Soft, No tenderness Musculoskeletal: Normal sensory function, Normal motor function Extremities: No clubbing, No cyanosis, No edema Neuro: Normal gait, Normal speech, Strength at 5/5 X4 ext, Cranial nerves 3-12 NL Skin: No Breakdown, No Bruising, No Significant Lesion, No Cyanosis; Dry, I ntact; No Petechiae, No Rashes; Warm; No Wounds, No Other Psych/Mental Status: Mental status NL, Mood NL Laboratory Results Laboratory Tests 08/16/25 09:18 Urinalysis Test 08/13/25 21:02 Urine Color Yellow (Yellow) Urine Clarity Clear (Clear) Urine pH 5.5 (5.0-9.0) Urine Specific [place] 1.036 (1.001-1.035) Urine Protein Trace (Negative) H Urine Ketones Trace (Negative) Urine Blood Negative /uL (Negative) Urine Nitrite Negative (Negative) Urine Bilirubin Negative (Negative) Urine Urobilinogen Normal mg/dL (Negative) Urine Leukocyte Esterase Negative /uL (Negative) Urine RBC 1 /hpf (0 - 4) Urine Microscopic WBC 2 /HPF (0-5) Urine Squamous Epithelial Cells Few /hpf (<5) Urine Bacteria None seen /hpf (None Seen) Urine Glucose Normal mg/dL (Normal) Assessment/Plan Assessment/Plan Impression: Sepsis 2/2 multifocal pneumonia Acute on chronic hypoxic respiratory failure Multifocal pneumonia likely Gram-negative Atelectasis COPD Bronchiectasis exacerbation Interstitial lung disease, chronic Leucocytosis Events: Improved oxygen requirements. Remains on supplemental oxygen, 2 LPM [place] Arranged for home oxygen. Complete antibiotics WBC trended down to 17.7 Neutrophils trending down. Continue bronchodilators Antitussive PRN cough. Incentive spirometry Patient is stable for discharge from the pulmonary standpoint. Disposition per hospitalist Recommend followup in 2 weeks as outpatient in [facility]. Chest x-ray notable for bilateral interstitial opacities. No acute changes. ABG from 08/15/25 shows PaO2 of 40.1 mmHg. Labs and imaging reviewed. Plan: Recommend inpatient admission for IV antibiotics. Prior pseudomonal infection in 01/2025 required prolonged antibiotic IV. Supplemental oxygen Keep O2 saturation above 92%. Leucocytosis with left shift - WBC trending down IV antibiotics Send sputum for Gram stain and culture Bronchodilators DVT prophylaxis Prognosis: Poor given multiple comorbidities. Rest of plan per hospitalist and other consultants. A total of 51 minutes of clinical care time was spent reviewing the patient record, examining the patient, making a diagnostic and therapeutic plan, discussing this plan with the medical personnel, following up on diagnostic studies and following the patient for clinical stability excluding any and all procedures. At least 50% of this time was spent in direct, [id number] contact. Thank you Dr. Jones for allowing me to participate in this patient's care. Further recommendations will depend on patient's clinical course. Please do not hesitate to contact me if you have any questions or concerns. This medical document was created using an electronic medical record system with [employer] dictation system. Although this document has been carefully reviewed, there may still be some phonetic and typographical errors. These areas are purely typographical due to imperfections of the software programs, and do not reflect any compromise in the patient's medical care. Plan discussed with: Patient, Other (SHAUNA Pritchard) Date of Service: Aug 17, 2025 Billing Provider: LOBO ZENG MD Common Visit Codes: [id number] INP/OBS CARE(HIGH) LOBO ZENG MD Aug 17, 2025 23:35
== END 2025-08-17 16:10 | disposition home health service (06) | DRG 871 ==
LOC: ER 13:50 → OVERFLOW 21:02 → TELE-WESTW 08-14 16:26
PROVIDERS: ADMIT Nurse Practitioner Acute Care; ATTEND Nurse Practitioner Acute Care
PROC: 05H933Z Insertion of Infusion Device into Right Brachial Vein, Percutaneous Approach (ICD-10-PCS; principal; 2025-08-16)
PROC: B54MZZA Ultrasonography of Right Upper Extremity Veins, Guidance (ICD-10-PCS; 2025-08-16)
DX: A41.59 Other Gram-negative sepsis (principal); J15.69 Pneumonia due to other Gram-negative bacteria; J96.21 Acute and chronic respiratory failure with hypoxia; J15.9 Unspecified bacterial pneumonia; J44.0 Chronic obstructive pulmonary disease with (acute) lower respiratory infection; J84.9 Interstitial pulmonary disease, unspecified; J47.1 Bronchiectasis with (acute) exacerbation; R64 Cachexia; J44.1 Chronic obstructive pulmonary disease with (acute) exacerbation; Z68.1 Body mass index [BMI] 19.9 or less, adult; J84.10 Pulmonary fibrosis, unspecified; J98.4 Other disorders of lung; I10 Essential (primary) hypertension; Z83.3 Family history of diabetes mellitus; Z90.710 Acquired absence of both cervix and uterus; Z99.81 Dependence on supplemental oxygen; Z80.9 Family history of malignant neoplasm, unspecified; Z88.5 Allergy status to narcotic agent; Z79.899 Other long term (current) drug therapy; Z98.51 Tubal ligation status
CPT/HCPCS: 36415; 36600; 71045; 71046; 80048; 80053; 81001; 82805; 83735; 83880; 84443; 84484; 85025; 85379; 87426; 87804; 93005; 94640; 96365; 96366; 96368; 96375; 97163; G0378; J0692; J2543

== ENCOUNTER 2025-08-22 11:03 | Outpatient (CLI) | payer OTHER ==
[2025-08-22 14:46] LABS: Hemoglobin 11.8 g/dL (12.2-16.2)
[2025-08-22 14:48] LABS: Hematocrit 37.7 % (36.0-46.0); Mean Corpuscular Hemoglobin 25.8 pg (28.0-32.0); Mean Corpuscular Volume 82.3 fL (80.0-100.0); Nucleated Red Blood Cells % 0.0 %
[2025-08-22 14:58] LABS: Alanine Aminotransferase 22 U/L (7-40); Albumin 3.6 g/dL (3.2-4.8); Alkaline Phosphatase 93 U/L (46-116); Anion Gap 9 (5-15); BUN/Creatinine Ratio 29.0 (10.0-20.0); Bilirubin, Total 0.5 mg/dL (0.2-1.0); Blood Urea Nitrogen 20 mg/dL (9-23); Carbon Dioxide 28 mmol/L (20-31); Chloride 101 mmol/L (98-107); Potassium 4.0 mmol/L (3.5-5.1); Sodium 138 mmol/L (136-145); Total Protein 6.5 g/dL (5.7-8.2)
[2025-08-22 15:04] LABS: Calcium 8.5 mg/dL (8.7-10.4); Glucose 56 mg/dL (74-106)
== END 2025-08-22 17:00 | disposition home or self-care (01) ==
LOC: LAB 11:03
PROVIDERS: ATTEND Internal Medicine Pulmonary Disease
DX: K41.00 Bilateral femoral hernia, with obstruction, without gangrene, not specified as recurrent (principal); R68.89 Other general symptoms and signs
CPT/HCPCS: 36415; 80053; 85025

== ENCOUNTER 2025-08-28 11:47 | Outpatient (CLI) | payer OTHER ==
[2025-08-28 12:16] LABS: Nucleated Red Blood Cells % 0.0 %
[2025-08-28 12:17] LABS: Hematocrit 39.6 % (36.0-46.0); Hemoglobin 12.7 g/dL (12.2-16.2); Mean Corpuscular Hemoglobin 26.9 pg (28.0-32.0); Mean Corpuscular Volume 83.8 fL (80.0-100.0)
[2025-08-28 12:33] LABS: Albumin 4.0 g/dL (3.2-4.8); Alkaline Phosphatase 102 U/L (46-116); Anion Gap 12 (5-15); Calcium 9.0 mg/dL (8.7-10.4); Carbon Dioxide 24 mmol/L (20-31); Chloride 100 mmol/L (98-107); Total Protein 7.1 g/dL (5.7-8.2)
[2025-08-28 12:34] LABS: Alanine Aminotransferase 23 U/L (7-40); BUN/Creatinine Ratio 18.1 (10.0-20.0); Bilirubin, Total 0.4 mg/dL (0.2-1.0); Blood Urea Nitrogen 13 mg/dL (9-23); Glucose 119 mg/dL (74-106); Potassium 4.8 mmol/L (3.5-5.1); Sodium 136 mmol/L (136-145)
== END 2025-08-28 17:00 | disposition home or self-care (01) ==
LOC: LAB 11:47
PROVIDERS: ATTEND Internal Medicine Pulmonary Disease
DX: J44.9 Chronic obstructive pulmonary disease, unspecified (principal); J96.01 Acute respiratory failure with hypoxia; J84.10 Pulmonary fibrosis, unspecified; Z99.81 Dependence on supplemental oxygen
CPT/HCPCS: 36415; 80053; 85025

== ENCOUNTER → 2025-11-15 | Outpatient (CLI) | payer OTHER ==
[~2025-11-15] MED LIST changes: +VALS40TA2 PO
[2025-11-15 16:19] LABS: Hemoglobin 10.9 g/dL (12.2-16.2); Nucleated Red Blood Cells % 0.0 %
[2025-11-15 16:21] LABS: Hematocrit 34.9 % (36.0-46.0); Mean Corpuscular Hemoglobin 27.0 pg (28.0-32.0); Mean Corpuscular Volume 86.1 fL (80.0-100.0)
[2025-11-15 16:41] LABS: Albumin 3.5 g/dL (3.2-4.8); Anion Gap 11 (5-15); BUN/Creatinine Ratio 13.6 (10.0-20.0); Blood Urea Nitrogen 9 mg/dL (9-23); Calcium 8.7 mg/dL (8.7-10.4); Potassium 3.8 mmol/L (3.5-5.1); Total Protein 7.8 g/dL (5.7-8.2)
[2025-11-15 16:42] LABS: Alanine Aminotransferase < 9 U/L (7-40); Alkaline Phosphatase 119 U/L (46-116); Bilirubin, Total 0.2 mg/dL (0.2-1.0); Carbon Dioxide 31 mmol/L (20-31); Chloride 94 mmol/L (98-107); Glucose 109 mg/dL (74-106); Sodium 136 mmol/L (136-145)
== END | disposition home or self-care (01) ==
LOC: LAB 16:00
PROVIDERS: ATTEND Internal Medicine
DX: J44.9 Chronic obstructive pulmonary disease, unspecified (principal)
CPT/HCPCS: 36415; 80053; 85025; 86480; 87070; 87077; 87205

== ENCOUNTER 2025-11-16 15:23 | Inpatient (IN) | payer OTHER ==
[~2025-11-16] VITALS: Ht 157.5 cm; Wt 44.0 kg
[~2025-11-16 15:23] MED LIST changes: -VALS40TA2 PO
[2025-11-16 15:54] VITALS: PULSE 124; RESP 42; O2SAT 94
--- NOTE | 2025-11-16 16:08 | ED.PDOC ---
SOB-HPI HPI Comments 75 y.o female with PMHx of COPD and HTN, presents to the ED for a chief co mplaint of SOB associated with a productive cough. Patient reports symptoms are chronic, usually intermittent but for the past couple days has been more persistent. Patient was sent by her PCP Dr. Nelson who performed multiple tests resulting in Gram Negative Rods/ Few Gram Positive Cocci in pairs and a WBC of 21,0000 11/15/25. Patient complains of chills and states having thick phlegm sputum that sometimes comes out bloody. She denies any chest pain, fever, nausea, vomiting or recent illness exposure. Chief Complaint: Shortness of Breath Time Seen by MD: 15:52 Primary Care Provider: SHENA Reviewed notes: Nurses Notes, Medications, Allergies Information Source: Patient Mode of Arrival: Ambulatory Severity: Moderate Duration: Since onset Context: At Rest PE Risk Factors: None History of: COPD Modifying Factors: Nothing Associated Signs and Symptoms: Cough If cough with SOB: Productive, Bloody Past Medical History PAST MEDICAL HISTORY: COPD, HTN Surgical History: Hysterectomy, Tubal Ligation STOCK DRIER TENDER History: No Pertinent STOCK DRIER TENDER History Family History Family History: Family hx of DM, Family hx of Cancer Social History Smoker: Non-Smoker Alcohol: Denies ETOH Use Drugs: Denies Drug Use Lives In: Home Constitutional: denies: chills, diaphoresis, fatigue, fever, malaise, sweats, weakness, others EENTM: denies: blurred vision, double vision, ear bleeding, ear discharge, ear drainage, ear pain, ear ringing, eye pain, eye redness, hearing loss, mouth pain, mouth swelling, nasal discharge, nose bleeding, nose congestion, nose pain, photophobia, tearing, throat pain, throat swelling, voice changes, others Respiratory: reports: cough, SOB at rest, shortness of breath, SOB with excertion; denies: hemoptysis, orthopnea, stridor, wheezing, others Cardiovascular: denies: chest pain, dizzy spells, diaphoresis, Dyspnea on exertion, edema, irregular heart beat, left arm pain, lightheadedness, palpitations, PND, syncope, others Gastrointestinal: denies: abdomen distended, abdominal pain, blood streaked bowels, constipated, diarrhea, dysphagia, difficulty swallowing, hematemesis, melena, nausea, poor appetite, poor fluid intake, rectal bleeding, rectal pain, vomiting, others Genitourinary: denies: abnormal vagina bleeding, burning, dyspareunia, dysuria, flank pain, frequency, hematuria, incontinence, pain, , vagina discharge, urgency, others Neurological: denies: dizziness, fainting, headache, left sided numbness, left sided weakness, numbness, paresthesia, pre-existing deficit, right sided numbness, right sided weakness, seizure, speech problems, tingling, tremors, weakness, others Musculoskeletal: denies: back pain, gout, joint pain, joint swelling, muscle pain, muscle stiffness, neck pain, others Integumetry: denies: bruises, change in color, change in hair/nails, dryness, laceration, lesions, lumps, rash, wounds, others Allergic/Immunocompromised: denies: Difficulty Healing, Frequent Infections, Hives, Itching, others Hematologic/Lymphatic: denies: anemia, blood clots, easy bleeding, easy bruising, swollen glands, others Endocrine: denies: excessive hunger, excessive sweating, excessive thirst, excessive urination, flushing, intolerance to cold, intolerance to heat, unexplained weight gain, unexplained weight loss, others Psychiatric: denies: anxiety, bipolar disorder, depression, hopeless, panic disorder, schizophrenia, sleepless, suicidal, others All Other Systems: Reviewed and Negative Physical Exam General Appearance: Moderate Distress HEENT: Normal ENT Inspection, Pharynx Normal, TMs Normal Neck: Full Range of Motion, Non-Tender, Normal, Normal Inspection Respiratory: Chest Non-Tender, Decreased Breath Sounds, No Accessory Muscle Use, Respiratory Distress, Wheezing Cardiovascular: No Edema, No JVD, No Murmur, No Gallop, Tachycardia Breast Exam: Deferred Gastrointestinal: No Organomegaly, Non Tender, No Pulsatile Mass, Normal Bowel Sounds, Soft Genitalia: Deferred Pelvic: Deferred Rectal: Deferred Extremities: No calf tenderness, Normal capillary refill, No pedal edema Musculoskeletal : Apperance: Normal Neurologic: Alert, swing frame grinder operator II-XII nml as Tested, Motor Weakness, Normal Affect, Normal Mood, No Sensory Deficits Cerebellar Function: Normal Reflexes: Normal Skin: Dry, Normal Color, Warm Lymphatic: No Adenopathy EKG EKG : Pulse Rate (adult): 110 [place]: Normal Cardiac Rhythm: ST Block: None Hypertrophy: NIRANJAN ST: Normal Was a procedure done? Was a procedure done?: No Differential Dx Differential Diagnosis: Asthma, Bronchitis, CHF, COPD, Dysrhythmia, Hyperventilation, Pneumonia, Pneumothorax, Respiratory Distress, URI X-Ray, Labs, Meds, VS Vital Signs Date Time Temp Pulse Resp B/P (MAP) Pulse Ox O2 Delivery O2 Flow Rate FiO2 11/16/25 18:32 126 28 123/75 (91) 92 11/16/25 16:07 110 11/16/25 15:54 98.4 124 42 143/85 (104) 97 98.4 11/16/25 15:54 94 Nasal Cannula* 3 32 11/16/25 15:54 124 42 94 Nasal Cannula* 3 32 11/16/25 15:52 110 11/16/25 15:27 98.1 127 26 132/71 74 98.1 Lab Test 11/16/25 18:36 11/16/25 16:02 Range/Units Urine Color Light-yellow Yellow Urine Clarity Clear Clear Urine pH 7.5 5.0-9.0 Urine Specific [place] 1.011 1.001-1.035 Urine Protein Negative Negative Urine Ketones Negative Negative Urine Blood Negative Negative /uL Urine Nitrite Negative Negative Urine Bilirubin Negative Negative Urine Urobilinogen Normal Negative mg/dL Urine Leukocyte Esterase 1+ Negative /uL Urine RBC 5 0 - 4 /hpf Urine Microscopic WBC 4 0-5 /HPF Urine Squamous Epithelial Cells Few <5 /hpf Urine Bacteria None seen None Seen /hpf Urine Glucose Normal Normal mg/dL White Blood Count 22.0 H 4.4-10.8 10^3/uL Red Blood Count 3.93 L 4.0-5.20 10^6/uL Hemoglobin 11.0 L 12.2-16.2 g/dL Hematocrit 33.6 L 36.0-46.0 % Mean Corpuscular Volume 85.5 80.0-100.0 fL Mean Corpuscular Hemoglobin 28.0 28.0-32.0 pg Mean Corpuscular Hemoglobin Concent 32.8 32.0-36.0 g/dL Red Cell Distribution Width 17.9 H 11.8-14.3 % Platelet Count 825 *H 140-450 10^3/uL Mean Platelet Volume 7.3 6.9-10.8 fL Neutrophils (%) (Auto) 89.8 H 37.0-80.0 % Lymphocytes (%) (Auto) 4.8 L 10.0-50.0 % Monocytes (%) (Auto) 4.7 0.0-12.0 % Eosinophils (%) (Auto) 0.4 0.0-7.0 % Basophils (%) (Auto) 0.3 0.0-2.0 % Neutrophils # (Auto) 19.7 H 1.6-8.6 10 ^3/uL Lymphocytes # (Auto) 1.1 0.4-5.4 10 ^3/uL Monocytes # (Auto) 1.0 0-1.3 10 ^3/uL Eosinophils # (Auto) 0.1 0-0.8 10 ^3/uL Basophils # (Auto) 0.1 0-0.2 10 ^3/uL Nucleated Red Blood Cells 0.0 % Platelet Estimate Markedly increased Sodium Level 137 136-145 mmol/L Potassium Level 4.0 3.5-5.1 mmol/L Chloride Level 95 L 98-107 mmol/L Carbon Dioxide Level 34 H 20-31 mmol/L Anion Gap 8 5-15 Blood Urea Nitrogen 7 L 9-23 mg/dL Creatinine 0.80 0.550-1.02 mg/dL Glomerular Filtration Rate Calc 76 >90 mL/min BUN/Creatinine Ratio 8.8 L 10.0-20.0 Serum Glucose 131 H 74-106 mg/dL Lactic Acid Level 1.6 0.4-2.0 mmol/L Calcium Level 9.1 8.7-10.4 mg/dL Total Bilirubin 0.3 0.2-1.0 mg/dL Aspartate Amino Transferase (AST) 21 13-40 U/L Alanine Aminotransferase (ALT) 10 7-40 U/L Alkaline Phosphatase 130 H 46-116 U/L B-Type Natriuretic Peptide 81.45 0-100 pg/mL Total Protein 8.0 5.7-8.2 g/dL Albumin 3.6 3.2-4.8 g/dL Influenza Type A Antigen Negative Negative Influenza Type B Antigen Negative Negative SARS-CoV-2 Antigen (Rapid) Negative NEGATIVE Current Medications Medications (Trade) Dose Ordered Sig/Benito Route Start Time Stop Time Status Last Admin Methylprednisolone Sodium Succinate (Solu Medrol) 125 mg ONCE ONCE IV 11/16/25 16:00 11/16/25 16:01 DC 11/16/25 16:26 Sodium Chloride 1,500 ml @ 1,500 mls/hr ONCE ONCE IV 11/16/25 16:00 11/16/25 16:59 DC 11/16/25 16:20 Vancomycin HCl 250 ml @ 250 mls/hr ONCE ONCE IV 11/16/25 16:00 11/16/25 16:59 DC 11/16/25 16:56 Ceftriaxone Sodium 50 ml @ 100 mls/hr ONCE ONCE IV 11/16/25 16:00 11/16/25 16:29 DC 11/16/25 16:26 CHEST RADIOGRAPH IMPRESSION: 1. Increased appearance of interstitial prominence when compared to 08/16/2025. 2. Can not exclude infection superimposed on chronic fibrosis. The patient was given Solu-Medrol 125 IV push The patient was given normal saline The patient was given vancomycin and ceftriaxone after blood cultures were drawn. The COVID test is negative The influenza pain has been influenza B was with the The patient's CBC shows a was in the this is a The urine test is positive for UTI At this time, the patient is being admitted to the hospitalist The patient understands and agrees with the management. Images Reviewed?: Images reviewed and evaluated by me Time of 1ST Reevaluation: 15:59 Reevaluation 1ST: Unchanged Patient Education/Counseling: Diagnosis, Treatment, Prognosis Family Education/Counseling: No Family Present SEPSIS Sepsis Screen Date sepsis recognized/suspect: Nov 16, 2025 Time Sepsis recognized/suspect: 1557 Recent Procedure: No On Antibiotic Therapy: No Respiratory Rate >20: Yes Heart Rate >90: No Temp<36 C (96.8 F) or >38.3 C: No SBP <90 or MAP <65 mmHG: No New Acute Mental Status Change: No Is the patient on CPAP, BIPAP,: No Physician Orders Electrocardigram (11/16/25 15:36) Blood Culture (11/16/25 15:36) Chest Portable (11/16/25 15:57) Heplock Iv (11/16/25 15:57) Pulse Oximetry (11/16/25 15:57) Brick Veneer Maker (11/16/25 15:57) Blood Pressure (11/16/25 15:57) Vital Signs Date Time Temp Pulse Resp B/P (MAP) Pulse Ox O2 Delivery O2 Flow Rate FiO2 11/16/25 18:32 126 28 123/75 (91) 92 11/16/25 16:07 110 11/16/25 15:54 98.4 124 42 143/85 (104) 97 98.4 11/16/25 15:54 94 Nasal Cannula* 3 32 11/16/25 15:54 124 42 94 Nasal Cannula* 3 32 11/16/25 15:52 110 11/16/25 15:27 98.1 127 26 132/71 74 98.1 Laboratory Tests Test 11/16/25 16:02 Lactic Acid Level 1.6 mmol/L (0.4-2.0) White Blood Count 22.0 10^3/uL (4.4-10.8) H Medications Medications Dose Ordered Sig/Benito Route Start Time Stop Time Status Last Admin Dose Admin Ceftriaxone Sodium 50 ml @ 100 mls/hr ONCE ONCE IV 11/16/25 16:00 11/16/25 16:29 DC 11/16/25 16:26 Methylprednisolone Sodium Succinate 125 mg ONCE ONCE IV 11/16/25 16:00 11/16/25 16:01 DC 11/16/25 16:26 Sodium Chloride 1,500 ml @ 1,500 mls/hr ONCE ONCE IV 11/16/25 16:00 11/16/25 16:59 DC 11/16/25 16:20 Vancomycin HCl 250 ml @ 250 mls/hr ONCE ONCE IV 11/16/25 16:00 11/16/25 16:59 DC 11/16/25 16:56 Departure 1 Departure Time of Disposition: 19:44 Impression: Primary Impression: Acute respiratory failure Qualified Codes: J96.01 - Acute respiratory failure with hypoxia Additional Impression: COPD exacerbation Disposition: 09 ADMITTED INPATIENT Admit to: Tele Condition: Fair Critical Care Note Critical Care Time?: Yes Stability Stability form required: Yes Unstable for transfer: Telemetry monitoring (Telemetry monitoring required), ED Physician Assesment (Clinical assesment) Heart Score Heart Score: Heart Score Response (Comments) Value History N/A 0 EKG N/A 0 Age N/A 0 Risk Factors N/A 0 Troponin N/A 0 Total 0 I personally scribed for ROBI ASTORGA MD ([email or web address]) on 11/16/25 at 16:07. Electronically submitted by Lorena Holland ([facility]). I personally scribed for ROBI ASTORGA MD ([email or web address]) on 11/16/25 at 16:34. Electronically submitted by Lorena Holland ([facility]). ROBI ASTORGA MD Nov 16, 2025 16:07
[2025-11-16 16:18] LABS: Hemoglobin 11.0 g/dL (12.2-16.2); Nucleated Red Blood Cells % 0.0 %
[2025-11-16 16:20] LABS: Hematocrit 33.6 % (36.0-46.0); Mean Corpuscular Hemoglobin 28.0 pg (28.0-32.0); Mean Corpuscular Volume 85.5 fL (80.0-100.0)
[2025-11-16] MEDS: SODIUM CHLORIDE 0.9% 1,500 ML IV ONE (16:20)
[2025-11-16] MEDS: methylPREDNISolone SOD SUCC 125 MG/2 ML VL IV ONE (16:26)
--- NOTE | 2025-11-16 16:32 | DVH ---
CHEST RADIOGRAPH INDICATION: cough TECHNIQUE: Single frontal view of the chest was obtained COMPARISON: XY CHEST PORTABLE on DOS: 08/13/25, XY CHEST PORTABLE on DOS: 08/11/25, XY CHEST PORTABLE on DOS: 02/26/25 FINDINGS: Lines and Tubes: None Lungs: Increased findings of pulmonary fibrosis is noted when compared to 08/16/2025. Findings may represent superimposed infection chronic disease. Pleura: No effusion. No pneumothorax. Cardiomediastinal contours: Unremarkable Bones: No acute osseous abnormality. IMPRESSION: 1. Increased appearance of interstitial prominence when compared to 08/16/2025. 2. Can not exclude infection superimposed on chronic fibrosis.
[2025-11-16 16:36] LABS: Alanine Aminotransferase 10 U/L (7-40); Albumin 3.6 g/dL (3.2-4.8); Anion Gap 8 (5-15); BUN/Creatinine Ratio 8.8 (10.0-20.0); Bilirubin, Total 0.3 mg/dL (0.2-1.0); Calcium 9.1 mg/dL (8.7-10.4); Potassium 4.0 mmol/L (3.5-5.1); Sodium 137 mmol/L (136-145); Total Protein 8.0 g/dL (5.7-8.2)
[2025-11-16 16:39] LABS: Alkaline Phosphatase 130 U/L (46-116); Blood Urea Nitrogen 7 mg/dL (9-23); Carbon Dioxide 34 mmol/L (20-31); Chloride 95 mmol/L (98-107); Glucose 131 mg/dL (74-106)
[2025-11-16] MEDS: VANCOMYCIN 1GM/250ML KIT 250 ML IV ONE (16:56)
[2025-11-16 17:11] LABS: COVID19 ANTIGEN SOFIA FIA NEGATIVE (NEGATIVE)
[2025-11-16 18:46] LABS: Urine Protein, UAD Negative (Negative)
[2025-11-16 19:30] VITALS: O2SAT 96
[2025-11-16] MEDS ORDERED: ONDANSETRON HCL 4 MG/2 ML VIAL IV PRN (20:45)
[2025-11-16 22:35] VITALS: BP 123/75; PULSE 126; RESP 24; TEMP 98.4; O2SAT 94
--- NOTE | 2025-11-16 22:59 | DVHHP2 ---
History of Present Illness Reason for Visit: Shortness for breath History of Present Illness 75-year-old female presents for evaluation of shortness for breath. Patient presents with a three day history of worsening shortness for breath with associated productive cough with brownish phlegm. She was seen by her primary care provider yesterday who ordered blood work and an x-ray. Today she received the call to present for further evaluation and possible pneumonia. Past Medical History Hypertension, COPD Past Surgical History Tubal ligation and hysterectomy Family History Noncontributory Smoke: No ALCOHOL: none Drugs: None Lives: with Family Review of Systems Review of Systems Review of systems are currently negative otherwise addressed in HPI. Allergies: Coded Allergies: Morphine (Verified Allergy, Intermediate, VOMITING, 02/16/25) Medications Current Medications Medications Dose Ordered Sig/Benito Route Start Time Stop Time Status Last Admin Dose Admin Ceftriaxone Sodium 50 ml @ 100 mls/hr DAILY@09 IV 11/17/25 09:00 Furosemide 20 mg DAILY PO 11/17/25 10:00 Valsartan 40 mg DAILY PO 11/17/25 10:00 Albuterol 2.5 mg Q6HPRN PRN NEB 11/16/25 20:45 Ipratropium [place] 0.5 mg Q6HPRN PRN NEB 11/16/25 20:45 Ondansetron HCl 4 mg Q4HP PRN IV 11/16/25 20:45 Enoxaparin Sodium 40 mg DAILY SC 11/17/25 10:00 Acetaminophen 650 mg Q6HP PRN PO 11/16/25 20:45 Azithromycin 500 mg DAILY PO 11/17/25 10:00 Exam Vital Signs Vital Signs Date Time Temp Pulse Resp B/P (MAP) Pulse Ox O2 Delivery O2 Flow Rate FiO2 11/16/25 22:35 98.4 126 24 123/75 94 3.0 32 98.4 11/16/25 19:30 Room Air* Nasal Cannula* Exam Gen: 75-year-old female in mild distress, cachectic Skin: Warm, dry, normal color and texture, no rash. HEENT: Normocephalic atraumatic, mucous membranes moist and pink. Neck: Cervical and supraclavicular nodes normal without enlargement, trachea is midline, thyroid gland is normal without masses. Pulmonary: Bilateral rhonchi Cardiac: Regular rate and rhythm. No murmur Abdomen: Soft, nontender, nondistended, bowel sounds present all 4 quadrants, no guarding, no rigidity, no organomegaly. Extremities: No cyanosis, clubbing, no edema Neuro: Cranial nerves II through XII grossly intact, normal affect and speech, no focal motor deficits. Labs/Xrays ORDERING PHYSICIAN: ROBI ASTORGA MD PROCEDURE(s): CXRP - CHEST PORTABLE REASON: cough ORDER NUMBER(s): [id number], ACCESSION NUMBER(s): [id number] CHEST RADIOGRAPH INDICATION: cough TECHNIQUE: Single frontal view of the chest was obtained COMPARISON: XY CHEST PORTABLE on DOS: 08/13/25, XY CHEST PORTABLE on DOS: 08/11/25, XY CHEST PORTABLE on DOS: 02/26/25 FINDINGS: Lines and Tubes: None Lungs: Increased findings of pulmonary fibrosis is noted when compared to 08/16/2025. Findings may represent superimposed infection chronic disease. Pleura: No effusion. No pneumothorax. Cardiomediastinal contours: Unremarkable Bones: No acute osseous abnormality. IMPRESSION: 1. Increased appearance of interstitial prominence when compared to 08/16/2025. 2. Can not exclude infection superimposed on chronic fibrosis. Labs Test 11/16/25 18:36 11/16/25 16:02 Range/Units Urine Color Light-yellow Yellow Urine Clarity Clear Clear Urine pH 7.5 5.0-9.0 Urine Specific [place] 1.011 1.001-1.035 Urine Protein Negative Negative Urine Ketones Negative Negative Urine Blood Negative Negative /uL Urine Nitrite Negative Negative Urine Bilirubin Negative Negative Urine Urobilinogen Normal Negative mg/dL Urine Leukocyte Esterase 1+ Negative /uL Urine RBC 5 0 - 4 /hpf Urine Microscopic WBC 4 0-5 /HPF Urine Squamous Epithelial Cells Few <5 /hpf Urine Bacteria None seen None Seen /hpf Urine Glucose Normal Normal mg/dL White Blood Count 22.0 H 4.4-10.8 10^3/uL Red Blood Count 3.93 L 4.0-5.20 10^6/uL Hemoglobin 11.0 L 12.2-16.2 g/dL Hematocrit 33.6 L 36.0-46.0 % Mean Corpuscular Volume 85.5 80.0-100.0 fL Mean Corpuscular Hemoglobin 28.0 28.0-32.0 pg Mean Corpuscular Hemoglobin Concent 32.8 32.0-36.0 g/dL Red Cell Distribution Width 17.9 H 11.8-14.3 % Platelet Count 825 *H 140-450 10^3/uL Mean Platelet Volume 7.3 6.9-10.8 fL Neutrophils (%) (Auto) 89.8 H 37.0-80.0 % Lymphocytes (%) (Auto) 4.8 L 10.0-50.0 % Monocytes (%) (Auto) 4.7 0.0-12.0 % Eosinophils (%) (Auto) 0.4 0.0-7.0 % Basophils (%) (Auto) 0.3 0.0-2.0 % Neutrophils # (Auto) 19.7 H 1.6-8.6 10 ^3/uL Lymphocytes # (Auto) 1.1 0.4-5.4 10 ^3/uL Monocytes # (Auto) 1.0 0-1.3 10 ^3/uL Eosinophils # (Auto) 0.1 0-0.8 10 ^3/uL Basophils # (Auto) 0.1 0-0.2 10 ^3/uL Nucleated Red Blood Cells 0.0 % Platelet Estimate Markedly increased Sodium Level 137 136-145 mmol/L Potassium Level 4.0 3.5-5.1 mmol/L Chloride Level 95 L 98-107 mmol/L Carbon Dioxide Level 34 H 20-31 mmol/L Anion Gap 8 5-15 Blood Urea Nitrogen 7 L 9-23 mg/dL Creatinine 0.80 0.550-1.02 mg/dL Glomerular Filtration Rate Calc 76 >90 mL/min BUN/Creatinine Ratio 8.8 L 10.0-20.0 Serum Glucose 131 H 74-106 mg/dL Lactic Acid Level 1.6 0.4-2.0 mmol/L Calcium Level 9.1 8.7-10.4 mg/dL Total Bilirubin 0.3 0.2-1.0 mg/dL Aspartate Amino Transferase (AST) 21 13-40 U/L Alanine Aminotransferase (ALT) 10 7-40 U/L Alkaline Phosphatase 130 H 46-116 U/L B-Type Natriuretic Peptide 81.45 0-100 pg/mL Total Protein 8.0 5.7-8.2 g/dL Albumin 3.6 3.2-4.8 g/dL Influenza Type A Antigen Negative Negative Influenza Type B Antigen Negative Negative SARS-CoV-2 Antigen (Rapid) Negative NEGATIVE SEPSIS Sepsis Screen Date sepsis recognized/suspect: Nov 16, 2025 Time Sepsis recognized/suspect: 1929 Recent Procedure: No On Antibiotic Therapy: No Respiratory Rate >20: No Heart Rate >90: Yes Temp<36 C (96.8 F) or >38.3 C: No SBP <90 or MAP <65 mmHG: No New Acute Mental Status Change: No Is the patient on CPAP, BIPAP,: No Physician Orders Electrocardigram (11/16/25 15:36) Blood Culture (11/16/25 15:36) Chest Portable (11/16/25 15:57) Heplock Iv (11/16/25 15:57) Pulse Oximetry (11/16/25 15:57) Paper Latcher (11/16/25 15:57) Blood Pressure (11/16/25 15:57) Admit (11/16/25 19:59) Ceftriaxone 1gm/50ml (Rocephin) (11/17/25 09:00) Furosemide Tablet (Lasix Tablet) (11/17/25 10:00) Valsartan (Diovan) (11/17/25 10:00) Albuterol Medneb (Ventolin Medneb) (11/16/25 20:45) Ipratropium Medneb (Atrovent Medneb) (11/16/25 20:45) Ondansetron Hcl (Zofran) (11/16/25 20:45) Enoxaparin Sodium (Lovenox) (11/17/25 10:00) Complete Blood Count (11/17/25 04:00) Cardiac Diet-2gna,Lofat,Lochol (11/17/25 Breakfast) Condition: Stable (11/16/25 20:31) Acetaminophen Tablet (Tylenol Tablet) (11/16/25 20:45) Bedrest With Bathroom Privileg (11/16/25 20:31) Basic Metabolic Panel (11/17/25 04:00) Azithromycin Tablet (Zithromax Tablet) (11/17/25 10:00) Vital Signs Date Time Temp Pulse Resp B/P (MAP) Pulse Ox O2 Delivery O2 Flow Rate FiO2 11/16/25 22:35 98.4 126 24 123/75 94 3.0 32 98.4 11/16/25 19:30 98.4 116 20 134/72 (92) 94 98.4 11/16/25 19:30 96 Room Air* 2 N/A Nasal Cannula* 11/16/25 18:32 126 28 123/75 (91) 92 11/16/25 16:07 110 11/16/25 15:54 98.4 124 42 143/85 (104) 97 98.4 11/16/25 15:54 94 Nasal Cannula* 3 32 11/16/25 15:54 124 42 94 Nasal Cannula* 3 32 11/16/25 15:52 110 11/16/25 15:27 98.1 127 26 132/71 74 98.1 Laboratory Tests Test 11/16/25 16:02 Lactic Acid Level 1.6 mmol/L (0.4-2.0) White Blood Count 22.0 10^3/uL (4.4-10.8) H Medications Medications Dose Ordered Sig/Benito Route Start Time Stop Time Status Last Admin Dose Admin Ceftriaxone Sodium 50 ml @ 100 mls/hr ONCE ONCE IV 11/16/25 16:00 11/16/25 16:29 DC 11/16/25 16:26 100 MLS/HR Methylprednisolone Sodium Succinate 125 mg ONCE ONCE IV 11/16/25 16:00 11/16/25 16:01 DC 11/16/25 16:26 125 MG Sodium Chloride 1,500 ml @ 1,500 mls/hr ONCE ONCE IV 11/16/25 16:00 11/16/25 16:59 DC 11/16/25 16:20 1,500 MLS/HR Vancomycin HCl 250 ml @ 250 mls/hr ONCE ONCE IV 11/16/25 16:00 11/16/25 16:59 DC 11/16/25 16:56 250 MLS/HR Assessment/Plan Assessment/Plan Assessment Acute on chronic respiratory failure COPD with possible exacerbation Community-acquired pneumonia Leukocytosis Urinary tract infection Thrombocytosis Plan Admit the patient to Med surge to the hospitalist Rocephin/azithromycin Med nebs Resume home medications Continue treatment per orders. Plan discussed with: Patient My Orders Orders - SHERWIN ALAS AGACNP Procedure Category Date Status Time Admit ADMIT 11/16/25 Transmitted 19:59 Ceftriaxone 1gm/50ml PHA 11/17/25 In Process (Rocephin) 09:00 Furosemide Tablet PHA 11/17/25 In Process (Lasix Tablet) 10:00 Valsartan (Diovan) PHA 11/17/25 In Process 10:00 Albuterol Medneb PHA 11/16/25 In Process (Ventolin Medneb) 20:45 Ipratropium Medneb PHA 11/16/25 In Process (Atrovent Medneb) 20:45 Ondansetron Hcl PHA 11/16/25 In Process (Zofran) 20:45 Enoxaparin Sodium PHA 11/17/25 In Process (Lovenox) 10:00 Complete Blood Count LAB 11/17/25 Verified 04:00 Cardiac DIET 11/17/25 Transmitted Diet-2gna,Lofat,Lochol Breakfast Condition: Stable ANGELA 11/16/25 In Process 20:31 Acetaminophen Tablet PHA 11/16/25 In Process (Tylenol Tablet) 20:45 Bedrest With Bathroom ANGELA 11/16/25 In Process Privileg 20:31 Basic Metabolic Panel LAB 11/17/25 Verified 04:00 Azithromycin Tablet PHA 11/17/25 In Process (Zithromax Tablet) 10:00 Date of Service: Nov 16, 2025 Billing Provider: SHERWIN ALAS Common Visit Codes: [id number] INP/OBS CARE (HIGH) SHERWIN ALAS Nov 16, 2025 22:59
[2025-11-16] MEDS: ACETAMINOPHEN 325 MG TAB PO PRN (23:33)
[2025-11-16 23:40] VITALS: BP 108/74; PULSE 103; RESP 24; TEMP 99.8; O2SAT 96
[2025-11-16] MEDS ORDERED: VALS40TA2 PO (23:47)
[2025-11-17] VITALS (12 sets, daily range): BP systolic 98–138; BP diastolic 62–87; PULSE 76–120; RESP 15–20; TEMP 97.6–98.5; O2SAT 93–100
[2025-11-17] MEDS: guaiFENesin-DM 100/10mg/5ml SYR PO PRN (04:33)
[2025-11-17 06:38] LABS: Nucleated Red Blood Cells % 0.0 %
[2025-11-17 06:41] LABS: Hematocrit 32.2 % (36.0-46.0); Hemoglobin 10.4 g/dL (12.2-16.2); Mean Corpuscular Hemoglobin 27.7 pg (28.0-32.0); Mean Corpuscular Volume 86.1 fL (80.0-100.0)
[2025-11-17 06:48] LABS: Anion Gap 6 (5-15); Potassium 4.6 mmol/L (3.5-5.1); Sodium 136 mmol/L (136-145)
[2025-11-17 06:49] LABS: Calcium 8.8 mg/dL (8.7-10.4)
[2025-11-17 06:51] LABS: Carbon Dioxide 32 mmol/L (20-31); Chloride 98 mmol/L (98-107)
[2025-11-17 06:54] LABS: BUN/Creatinine Ratio 14.3 (10.0-20.0)
[2025-11-17 06:57] LABS: Blood Urea Nitrogen 8 mg/dL (9-23); Glucose 150 mg/dL (74-106)
[2025-11-17] MEDS: ALBUTEROL SULF 2.5 MG/0.5ML(0.5%) NEB SOLN NEB PRN (09:36)
[2025-11-17] MEDS: IPRATROPIUM BROM 0.5 MG/2.5ML INH SOL NEB PRN (09:37)
[2025-11-17] MEDS: VALSARTAN 80 MG TAB PO SCH (10:00)
[2025-11-17] MEDS: AZITHROMYCIN 250 MG TAB PO SCH (10:00)
[2025-11-17] MEDS ORDERED: AZITHROMYCIN 500MG/250ML 250 ML IV SCH (10:00)
[2025-11-17] MEDS: ENOXAPARIN SOD 40 MG/0.4 ML SYRINGE SC SCH (10:42)
[2025-11-17] MEDS: FUROSEMIDE 20 MG TAB PO SCH (10:43)
--- NOTE | 2025-11-17 18:19 | DVHPN2 ---
Reviewed: H&P Changes from previous H/P or p: No Changes General: Per HPI Objective Vitals Vital Signs Date Time Temp Pulse Resp B/P (MAP) Pulse Ox O2 Delivery O2 Flow Rate FiO2 11/17/25 16:42 97.6 102 20 126/82 (97) 97 97.6 11/17/25 09:37 Nasal Cannula 3.0 11/17/25 09:37 32 Intake/Output Intake and Output 11/17/25 07:00 Intake Total 30 ml Balance 30 ml Intake Oral 30 ml # Voids 2 # Bowel Movements 1 Exam Skin: Warm, dry, normal color and texture, no rash. HEENT: Normocephalic atraumatic, mucous membranes moist and pink. Neck: Cervical and supraclavicular nodes normal without enlargement, trachea is midline, thyroid gland is normal without masses. Pulmonary: Bilateral rhonchi Cardiac: Regular rate and rhythm. No murmur Abdomen: Soft, nontender, nondistended, bowel sounds present all 4 quadrants, no guarding, no rigidity, no organomegaly. Extremities: No cyanosis, clubbing, no edema Neuro: Cranial nerves II through XII grossly intact, normal affect and speech, no focal motor deficits. Medications Current Medications Medications Dose Ordered Sig/Benito Route Start Time Stop Time Status Last Admin Dose Admin Ceftriaxone Sodium 50 ml @ 100 mls/hr DAILY@09 IV 11/17/25 09:00 11/17/25 10:42 100 MLS/HR Furosemide 20 mg DAILY PO 11/17/25 10:00 11/17/25 10:43 20 MG Valsartan 40 mg DAILY PO 11/17/25 10:00 11/17/25 10:00 40 MG Albuterol 2.5 mg Q6HPRN PRN NEB 11/16/25 20:45 11/17/25 09:36 2.5 MG Ipratropium [place] 0.5 mg Q6HPRN PRN NEB 11/16/25 20:45 11/17/25 09:37 0.5 MG Ondansetron HCl 4 mg Q4HP PRN IV 11/16/25 20:45 Enoxaparin Sodium 40 mg DAILY SC 11/17/25 10:00 11/17/25 10:42 40 MG Acetaminophen 650 mg Q6HP PRN PO 11/16/25 20:45 11/16/25 23:33 650 MG Azithromycin 500 mg DAILY PO 11/17/25 10:00 11/17/25 10:00 500 MG Guaifenesin/ Dextromethorphan 10 ml Q4HP PRN PO 11/17/25 01:15 11/17/25 04:33 10 ML Laboratory Results Laboratory Tests 11/17/25 04:59 Chemistry Test 11/17/25 04:59 Calcium Level 8.8 mg/dL (8.7-10.4) Urinalysis Test 11/16/25 18:36 Urine Color Light-yellow (Yellow) Urine Clarity Clear (Clear) Urine pH 7.5 (5.0-9.0) Urine Specific [place] 1.011 (1.001-1.035) Urine Protein Negative (Negative) Urine Ketones Negative (Negative) Urine Blood Negative /uL (Negative) Urine Nitrite Negative (Negative) Urine Bilirubin Negative (Negative) Urine Urobilinogen Normal mg/dL (Negative) Urine Leukocyte Esterase 1+ /uL (Negative) Urine RBC 5 /hpf (0 - 4) Urine Microscopic WBC 4 /HPF (0-5) Urine Squamous Epithelial Cells Few /hpf (<5) Urine Bacteria None seen /hpf (None Seen) Urine Glucose Normal mg/dL (Normal) Microbiology Microbiology Date/Time Source Procedure Growth Status 11/16/25 16:12 Blood Blood Culture - Preliminary NO GROWTH AFTER 24 HOURS OF INCUBATION. Resulted Labs and/or images reviewed: Labs reviewed by me, Image(s) reviewed by me Assessment/Plan Assessment/Plan 75-year-old female presents for evaluation of shortness for breath. Patient presents with a three day history of worsening shortness for breath with associated productive cough with brownish phlegm. She was seen by her primary care provider yesterday who ordered blood work and an x-ray. Today she received the call to present for further evaluation and possible pneumonia. Past Medical History Hypertension, COPD 11/17: Patient here for pneumonia, COPD, UTI, thrombocytosis. Likely from infection. Patient evaluated today continues to have difficulty breathing. She is on home oxygen which is at home level but her breathing is debilitating resulting in NYHA 3-4 level,. Patient needs further treatment to improve before she can go home. diagnosis: Acute on chronic respiratory failure COPD with possible exacerbation , with pneumonitis Community-acquired pneumonia, Gram-negative Gram-positive possible Sepsis, due to pneumonia Leukocytosis Urinary tract infection, acute complicated Thrombocytosis, likely reactive to sepsis plan: -Pain prn Tylenol 650 q.6, [place] 10 q.6, morphine to q.6 -Scheduled nebulizers albuterol ipratropium q.6 -Azithromycin 500 p.o. daily -Ceftriaxone IV 1 g daily -Prophylactic Lovenox 40 subQ daily -Lasix 40 p.o. daily -Prn antiemetics Zofran IV 4 mg IV q.4 -Valsartan 40 mg daily Med surge Full code Plan discussed with: Patient Date of Service: Nov 17, 2025 Billing Provider: IVRGEN MATIAS MD Common Visit Codes: [id number] INP/OBS CARE(HIGH) VIRGEN MATIAS MD Nov 17, 2025 18:19
[2025-11-18] VITALS (17 sets, daily range): BP systolic 97–148; BP diastolic 64–98; PULSE 98–124; RESP 16–22; TEMP 97.8–100.1; O2SAT 90–100
[2025-11-18] MEDS: ALBUTEROL SULF 2.5 MG/0.5ML(0.5%) NEB SOLN NEB SCH (01:20)
[2025-11-18] MEDS: IPRATROPIUM BROM 0.5 MG/2.5ML INH SOL NEB SCH (01:21)
[2025-11-18 06:00] LABS: Hematocrit 30.6 % (36.0-46.0); Hemoglobin 9.9 g/dL (12.2-16.2); Mean Corpuscular Hemoglobin 27.3 pg (28.0-32.0); Mean Corpuscular Volume 84.7 fL (80.0-100.0); Nucleated Red Blood Cells % 0.1 %
[2025-11-18 06:27] LABS: Alanine Aminotransferase 11 U/L (7-40); Albumin 3.2 g/dL (3.2-4.8); Alkaline Phosphatase 102 U/L (46-116); BUN/Creatinine Ratio 11.5 (10.0-20.0); Calcium 8.8 mg/dL (8.7-10.4); Glucose 89 mg/dL (74-106); Total Protein 7.0 g/dL (5.7-8.2)
[2025-11-18 06:34] LABS: Bilirubin, Total 0.3 mg/dL (0.2-1.0); Blood Urea Nitrogen 7 mg/dL (9-23); Carbon Dioxide 33 mmol/L (20-31)
[2025-11-18 06:45] LABS: Anion Gap 8 (5-15); Chloride 96 mmol/L (98-107); Potassium 3.9 mmol/L (3.5-5.1); Sodium 137 mmol/L (136-145)
--- NOTE | 2025-11-18 16:48 | DVHPN2 ---
Reviewed: H&P Changes from previous H/P or p: No Changes General: Per HPI Objective Vitals Vital Signs Date Time Temp Pulse Resp B/P (MAP) Pulse Ox O2 Delivery O2 Flow Rate FiO2 11/18/25 13:12 120 18 100 11/18/25 13:06 Nasal Cannula 3.0 11/18/25 13:06 32 11/18/25 11:19 99.7 97/66 (76) 99.7 Intake/Output Intake and Output 11/18/25 07:00 Intake Total 1690 ml Output Total 450 ml Balance 1240 ml Intake Oral 1690 ml Output Urine Total 450 ml Exam Skin: Warm, dry, normal color and texture, no rash. HEENT: Normocephalic atraumatic, mucous membranes moist and pink. Neck: Cervical and supraclavicular nodes normal without enlargement, trachea is midline, thyroid gland is normal without masses. Pulmonary: Bilateral rhonchi Cardiac: Regular rate and rhythm. No murmur Abdomen: Soft, nontender, nondistended, bowel sounds present all 4 quadrants, no guarding, no rigidity, no organomegaly. Extremities: No cyanosis, clubbing, no edema Neuro: Cranial nerves II through XII grossly intact, normal affect and speech, no focal motor deficits. Medications Current Medications Medications Dose Ordered Sig/Benito Route Start Time Stop Time Status Last Admin Dose Admin Ceftriaxone Sodium 50 ml @ 100 mls/hr DAILY@09 IV 11/17/25 09:00 11/18/25 09:20 100 MLS/HR Furosemide 20 mg DAILY PO 11/17/25 10:00 11/18/25 09:22 20 MG Valsartan 40 mg DAILY PO 11/17/25 10:00 11/18/25 09:25 40 MG Ondansetron HCl 4 mg Q4HP PRN IV 11/16/25 20:45 Enoxaparin Sodium 40 mg DAILY SC 11/17/25 10:00 11/18/25 09:20 40 MG Acetaminophen 650 mg Q6HP PRN PO 11/16/25 20:45 11/16/25 23:33 650 MG Azithromycin 500 mg DAILY PO 11/17/25 10:00 11/18/25 09:20 500 MG Guaifenesin/ Dextromethorphan 10 ml Q4HP PRN PO 11/17/25 01:15 11/17/25 19:57 10 ML Albuterol 2.5 mg Q6H [facility] 11/18/25 00:00 11/18/25 13:06 2.5 MG Ipratropium [place] 0.5 mg Q6H NEB 11/18/25 00:00 11/18/25 13:06 0.5 MG Acetylcysteine 200 mg Q6HR NEB 11/18/25 18:00 Laboratory Results Laboratory Tests 11/18/25 05:15 Chemistry Test 11/18/25 05:15 Albumin 3.2 g/dL (3.2-4.8) Calcium Level 8.8 mg/dL (8.7-10.4) Total Protein 7.0 g/dL (5.7-8.2) LFT Test 11/18/25 05:15 Alanine Aminotransferase (ALT) 11 U/L (7-40) Alkaline Phosphatase 102 U/L (46-116) Aspartate Amino Transferase (AST) 21 U/L (13-40) Total Bilirubin 0.3 mg/dL (0.2-1.0) Urinalysis Test 11/16/25 18:36 Urine Color Light-yellow (Yellow) Urine Clarity Clear (Clear) Urine pH 7.5 (5.0-9.0) Urine Specific [place] 1.011 (1.001-1.035) Urine Protein Negative (Negative) Urine Ketones Negative (Negative) Urine Blood Negative /uL (Negative) Urine Nitrite Negative (Negative) Urine Bilirubin Negative (Negative) Urine Urobilinogen Normal mg/dL (Negative) Urine Leukocyte Esterase 1+ /uL (Negative) Urine RBC 5 /hpf (0 - 4) Urine Microscopic WBC 4 /HPF (0-5) Urine Squamous Epithelial Cells Few /hpf (<5) Urine Bacteria None seen /hpf (None Seen) Urine Glucose Normal mg/dL (Normal) Microbiology Microbiology Date/Time Source Procedure Growth Status 11/16/25 18:46 Blood Blood Culture - Preliminary NO GROWTH AFTER 24 HOURS OF INCUBATION. Resulted Labs and/or images reviewed: Labs reviewed by me, Image(s) reviewed by me Assessment/Plan Assessment/Plan 75-year-old female presents for evaluation of shortness for breath. Patient presents with a three day history of worsening shortness for breath with associated productive cough with brownish phlegm. She was seen by her primary care provider yesterday who ordered blood work and an x-ray. Today she received the call to present for further evaluation and possible pneumonia. Past Medical History Hypertension, COPD 11/17: Patient here for pneumonia, COPD, UTI, thrombocytosis. Likely from infection. Patient evaluated today continues to have difficulty breathing. She is on home oxygen which is at home level but her breathing is debilitating resulting in NYHA 3-4 level,. Patient needs further treatment to improve before she can go home. 11/18: still sob, heavy heavy cough. will start mucomyst q6h. maybe one more day. continue other management as planned prior. diagnosis: Acute on chronic respiratory failure COPD with possible exacerbation , with pneumonitis Community-acquired pneumonia, Gram-negative Gram-positive possible Sepsis, due to pneumonia Leukocytosis Urinary tract infection, acute complicated Thrombocytosis, likely reactive to sepsis plan: -Pain prn Tylenol 650 q.6, [place] 10 q.6, morphine to q.6 -Scheduled nebulizers albuterol ipratropium q.6 -Azithromycin 500 p.o. daily -Ceftriaxone IV 1 g daily -Prophylactic Lovenox 40 subQ daily -Lasix 40 p.o. daily -Prn antiemetics Zofran IV 4 mg IV q.4 -Valsartan 40 mg daily Med surge Full code Plan discussed with: Other My Orders Orders - VIRGEN MATIAS MD Procedure Category Date Status Time Albuterol Medneb PHA 11/18/25 In Process (Ventolin Medneb) 00:00 Ipratropium Medneb PHA 11/18/25 In Process (Atrovent Medneb) 00:00 Acetylcysteine PHA 11/18/25 In Process Inhalation 20% 18:00 Date of Service: Nov 18, 2025 Billing Provider: VIRGEN MATIAS MD Common Visit Codes: [id number] INP/OBS CARE(HIGH) VIRGEN MATIAS MD Nov 18, 2025 16:48
[2025-11-18] MEDS: ACETYLCYSTEINE 20%(200MG/ML) SOL 4ML NEB SCH (17:46)
--- NOTE | 2025-11-18 22:16 | ECG ---
[facility] Test Date: 2025-11-16 Test Time: 15:52:17 Pat Name: SANTOS BATEMAN Department: Room: 0289 A Gender: F Clerk [employer]: LOLI : 1950 Requested By: ROBI ASTORGA Order Number: [id number] Reading MD: Irvin Olmos Measurements Intervals [place] Rate: 110 P: 66 OK: 153 QRS: -5 QRSD: 72 T: 62 QT: 304 QTc: 412 Interpretive Statements Sinus tachycardia Right atrial enlargement Electronically Signed On 11-19-2025 15:23:27 PST by Irvin Olmos Please click the below link to view image of tracing.
[2025-11-19] VITALS (16 sets, daily range): BP systolic 100–109; BP diastolic 58–74; PULSE 76–116; RESP 16–20; TEMP 97.8–98.2; O2SAT 90–100
[2025-11-19 07:17] LABS: Hemoglobin 10.0 g/dL (12.2-16.2); Nucleated Red Blood Cells % 0.1 %
[2025-11-19 07:19] LABS: Hematocrit 30.5 % (36.0-46.0); Mean Corpuscular Hemoglobin 27.8 pg (28.0-32.0); Mean Corpuscular Volume 84.8 fL (80.0-100.0)
[2025-11-19 07:31] LABS: Alanine Aminotransferase < 9 U/L (7-40); Albumin 3.3 g/dL (3.2-4.8); Alkaline Phosphatase 92 U/L (46-116); Anion Gap 8 (5-15); BUN/Creatinine Ratio 13.3 (10.0-20.0); Bilirubin, Total 0.4 mg/dL (0.2-1.0); Blood Urea Nitrogen 8 mg/dL (9-23); Calcium 8.9 mg/dL (8.7-10.4); Carbon Dioxide 35 mmol/L (20-31); Chloride 93 mmol/L (98-107); Glucose 88 mg/dL (74-106); Potassium 4.1 mmol/L (3.5-5.1); Sodium 136 mmol/L (136-145); Total Protein 6.9 g/dL (5.7-8.2)
--- NOTE | 2025-11-19 17:37 | DVHPN2 ---
Reviewed: H&P Changes from previous H/P or p: No Changes General: Per HPI Objective Vitals Vital Signs Date Time Temp Pulse Resp B/P (MAP) Pulse Ox O2 Delivery O2 Flow Rate FiO2 11/19/25 16:33 98.1 76 17 109/71 (84) 96 98.1 11/19/25 10:00 Nasal Cannula 3.0 11/19/25 10:00 32 Intake/Output Intake and Output 11/19/25 07:00 Intake Total 1990 ml Output Total 1250 ml Balance 740 ml Intake Oral 1990 ml Output Urine Total 1250 ml # Voids 1 # Bowel Movements 1 Exam Skin: Warm, dry, normal color and texture, no rash. HEENT: Normocephalic atraumatic, mucous membranes moist and pink. Neck: Cervical and supraclavicular nodes normal without enlargement, trachea is midline, thyroid gland is normal without masses. Pulmonary: Bilateral rhonchi Cardiac: Regular rate and rhythm. No murmur Abdomen: Soft, nontender, nondistended, bowel sounds present all 4 quadrants, no guarding, no rigidity, no organomegaly. Extremities: No cyanosis, clubbing, no edema Neuro: Cranial nerves II through XII grossly intact, normal affect and speech, no focal motor deficits. Medications Current Medications Medications Dose Ordered Sig/[place] Route Start Time Stop Time Status Last Admin Dose Admin Ceftriaxone Sodium 50 ml @ 100 mls/hr DAILY@09 IV 11/17/25 09:00 11/19/25 10:12 100 MLS/HR Furosemide 20 mg DAILY PO 11/17/25 10:00 11/19/25 10:13 20 MG Valsartan 40 mg DAILY PO 11/17/25 10:00 11/19/25 10:14 40 MG Ondansetron HCl 4 mg Q4HP PRN IV 11/16/25 20:45 Enoxaparin Sodium 40 mg DAILY SC 11/17/25 10:00 11/19/25 10:13 40 MG Acetaminophen 650 mg Q6HP PRN PO 11/16/25 20:45 11/19/25 12:19 650 MG Azithromycin 500 mg DAILY PO 11/17/25 10:00 11/19/25 10:20 500 MG Guaifenesin/ Dextromethorphan 10 ml Q4HP PRN PO 11/17/25 01:15 11/17/25 19:57 10 ML Albuterol 2.5 mg Q6H NEB 11/18/25 00:00 11/19/25 12:50 2.5 MG Ipratropium [place] 0.5 mg Q6H NEB 11/18/25 00:00 11/19/25 12:50 0.5 MG Acetylcysteine 200 mg Q6HR NEB 11/18/25 18:00 11/19/25 12:50 200 MG Laboratory Results Laboratory Tests 11/19/25 06:20 Chemistry Test 11/19/25 06:20 Albumin 3.3 g/dL (3.2-4.8) Calcium Level 8.9 mg/dL (8.7-10.4) Total Protein 6.9 g/dL (5.7-8.2) LFT Test 11/19/25 06:20 Alanine Aminotransferase (ALT) < 9 U/L (7-40) Alkaline Phosphatase 92 U/L (46-116) Aspartate Amino Transferase (AST) 19 U/L (13-40) Total Bilirubin 0.4 mg/dL (0.2-1.0) Urinalysis Test 11/16/25 18:36 Urine Color Light-yellow (Yellow) Urine Clarity Clear (Clear) Urine pH 7.5 (5.0-9.0) Urine Specific [place] 1.011 (1.001-1.035) Urine Protein Negative (Negative) Urine Ketones Negative (Negative) Urine Blood Negative /uL (Negative) Urine Nitrite Negative (Negative) Urine Bilirubin Negative (Negative) Urine Urobilinogen Normal mg/dL (Negative) Urine Leukocyte Esterase 1+ /uL (Negative) Urine RBC 5 /hpf (0 - 4) Urine Microscopic WBC 4 /HPF (0-5) Urine Squamous Epithelial Cells Few /hpf (<5) Urine Bacteria None seen /hpf (None Seen) Urine Glucose Normal mg/dL (Normal) Microbiology Microbiology Date/Time Source Procedure Growth Status 11/16/25 18:46 Blood Blood Culture - Preliminary NO GROWTH AFTER 48 HOURS OF INCUBATION. Resulted Labs and/or images reviewed: Labs reviewed by me, Image(s) reviewed by me Assessment/Plan Assessment/Plan 75-year-old female presents for evaluation of shortness for breath. Patient presents with a three day history of worsening shortness for breath with associated productive cough with brownish phlegm. She was seen by her primary care provider yesterday who ordered blood work and an x-ray. Today she received the call to present for further evaluation and possible pneumonia. Past Medical History Hypertension, COPD 11/17: Patient here for pneumonia, COPD, UTI, thrombocytosis. Likely from infection. Patient evaluated today continues to have difficulty breathing. She is on home oxygen which is at home level but her breathing is debilitating resulting in NYHA 3-4 level,. Patient needs further treatment to improve before she can go home. 11/18: still sob, heavy heavy cough. will start mucomyst q6h. maybe one more day. continue other management as planned prior. 11/19: Wheezing improving but continues to wheeze., still very heavy cough, not need cleared, continue Mucomyst. We will add guaifenesin today. Patient needs to do more Mucomyst at home. Patient has a nebulizer machine at home. Patient needs to outpatient quick follow up with pulmonology to reassess for repeat bronch for suctioning. Likely discharge tomorrow morning. diagnosis: Acute on chronic respiratory failure COPD with possible exacerbation , with pneumonitis Community-acquired pneumonia, Gram-negative Gram-positive possible Sepsis, due to pneumonia Leukocytosis Urinary tract infection, acute complicated Thrombocytosis, likely reactive to sepsis plan: -Pain prn Tylenol 650 q.6, [place] 10 q.6, morphine to q.6 -Scheduled nebulizers albuterol ipratropium q.6 -Azithromycin 500 p.o. daily -Ceftriaxone IV 1 g daily -Prophylactic Lovenox 40 subQ daily -Lasix 40 p.o. daily -Prn antiemetics Zofran IV 4 mg IV q.4 -Valsartan 40 mg daily Med surge Full code Plan discussed with: Patient Date of Service: Nov 19, 2025 Billing Provider: VIRGEN MATIAS MD Common Visit Codes: [id number] INP/OBS CARE(HIGH) VIRGEN MATIAS MD Nov 19, 2025 17:37
[2025-11-20] VITALS (12 sets, daily range): BP systolic 96–120; BP diastolic 68–82; PULSE 70–112; RESP 16–20; TEMP 37.2; O2SAT 92–100
[2025-11-20 06:56] LABS: Hemoglobin 10.1 g/dL (12.2-16.2); Nucleated Red Blood Cells % 0.0 %
[2025-11-20 06:58] LABS: Hematocrit 30.6 % (36.0-46.0); Mean Corpuscular Hemoglobin 27.8 pg (28.0-32.0); Mean Corpuscular Volume 84.6 fL (80.0-100.0)
[2025-11-20] MEDS ORDERED: ACE1030 IN (13:48)
[2025-11-20] MEDS ORDERED: PRED20TA2 PO (13:48)
[2025-11-20] MEDS ORDERED: DOXY100C79 PO (13:48)
--- NOTE | 2025-11-20 13:48 | DVHDS2 ---
Discharge Summary Date of Admission Nov 16, 2025 at 19:59 Date of Discharge: Nov 20, 2025 Labs/Diagnostic Data: Laboratory Results Test 11/20/25 05:57 11/19/25 06:20 11/16/25 18:36 11/16/25 16:02 White Blood Count 15.7 10^3/uL (4.4-10.8) Red Blood Count 3.62 10^6/uL (4.0-5.20) Hemoglobin 10.1 g/dL (12.2-16.2) Hematocrit 30.6 % (36.0-46.0) Mean Corpuscular Volume 84.6 fL (80.0-100.0) Mean Corpuscular Hemoglobin 27.8 pg (28.0-32.0) Mean Corpuscular Hemoglobin Concent 32.9 g/dL (32.0-36.0) Red Cell Distribution Width 18.4 % (11.8-14.3) Platelet Count 624 10^3/uL (140-450) Mean Platelet Volume 7.7 fL (6.9-10.8) Neutrophils (%) (Auto) 79.6 % (37.0-80.0) Lymphocytes (%) (Auto) 10.0 % (10.0-50.0) Monocytes (%) (Auto) 8.7 % (0.0-12.0) Eosinophils (%) (Auto) 1.2 % (0.0-7.0) Basophils (%) (Auto) 0.5 % (0.0-2.0) Neutrophils # (Auto) 12.5 10 ^3/uL (1.6-8.6) Lymphocytes # (Auto) 1.6 10 ^3/uL (0.4-5.4) Monocytes # (Auto) 1.4 10 ^3/uL (0-1.3) Eosinophils # (Auto) 0.2 10 ^3/uL (0-0.8) Basophils # (Auto) 0.1 10 ^3/uL (0-0.2) Nucleated Red Blood Cells 0.0 % Platelet Estimate Markedly increased Sodium Level 136 mmol/L (136-145) Potassium Level 4.1 mmol/L (3.5-5.1) Chloride Level 93 mmol/L (98-107) Carbon Dioxide Level 35 mmol/L (20-31) Anion Gap 8 (5-15) Blood Urea Nitrogen 8 mg/dL (9-23) Creatinine 0.60 mg/dL (0.550-1.02) Glomerular Filtration Rate Calc 92 mL/min (>90) BUN/Creatinine Ratio 13.3 (10.0-20.0) Serum Glucose 88 mg/dL (74-106) Calcium Level 8.9 mg/dL (8.7-10.4) Total Bilirubin 0.4 mg/dL (0.2-1.0) Aspartate Amino Transferase (AST) 19 U/L (13-40) Alanine Aminotransferase (ALT) < 9 U/L (7-40) Alkaline Phosphatase 92 U/L (46-116) Total Protein 6.9 g/dL (5.7-8.2) Albumin 3.3 g/dL (3.2-4.8) Urine Color Light-yellow (Yellow) Urine Clarity Clear (Clear) Urine pH 7.5 (5.0-9.0) Urine Specific [place] 1.011 (1.001-1.035) Urine Protein Negative (Negative) Urine Ketones Negative (Negative) Urine Blood Negative /uL (Negative) Urine Nitrite Negative (Negative) Urine Bilirubin Negative (Negative) Urine Urobilinogen Normal mg/dL (Negative) Urine Leukocyte Esterase 1+ /uL (Negative) Urine RBC 5 /hpf (0 - 4) Urine Microscopic WBC 4 /HPF (0-5) Urine Squamous Epithelial Cells Few /hpf (<5) Urine Bacteria None seen /hpf (None Seen) Urine Glucose Normal mg/dL (Normal) Lactic Acid Level 1.6 mmol/L (0.4-2.0) B-Type Natriuretic Peptide 81.45 pg/mL (0-100) Influenza Type A Antigen Negative (Negative) Influenza Type B Antigen Negative (Negative) SARS-CoV-2 Antigen (Rapid) Negative (NEGATIVE) Other Laboratory Tests 11/20/25 05:57 11/19/25 06:20 Brief Hx & Hospital Course: 75-year-old female presents for evaluation of shortness for breath. Patient presents with a three day history of worsening shortness for breath with associated productive cough with brownish phlegm. She was seen by her primary care provider yesterday who ordered blood work and an x-ray. Today she received the call to present for further evaluation and possible pneumonia. Past Medical History Hypertension, COPD 11/17: Patient here for pneumonia, COPD, UTI, thrombocytosis. Likely from infection. Patient evaluated today continues to have difficulty breathing. She is on home oxygen which is at home level but her breathing is debilitating resulting in NYHA 3-4 level,. Patient needs further treatment to improve before she can go home. 11/18: still sob, heavy heavy cough. will start mucomyst q6h. maybe one more day. continue other management as planned prior. 11/19: Wheezing improving but continues to wheeze., still very heavy cough, not need cleared, continue Mucomyst. We will add guaifenesin today. Patient needs to do more Mucomyst at home. Patient has a nebulizer machine at home. Patient needs to outpatient quick follow up with pulmonology to reassess for repeat bronch for suctioning. Likely discharge tomorrow morning. diagnosis: Acute on chronic respiratory failure COPD with possible exacerbation , with pneumonitis Community-acquired pneumonia, Gram-negative Gram-positive possible Sepsis, due to pneumonia Leukocytosis Urinary tract infection, acute complicated Thrombocytosis, likely reactive to sepsis Plan: - Doxycycline 100 mg twice daily for 5 days - Prednisone taper (2/day x5day, 1/day x5day, half pill daily x6day ) - Mucomyst 3 times daily for 3 days - stat outpatient referral and follow up with pulmonology, marie for bronch Follow up [facility]CP [facility] in 1 week -continue other home medications not mentioned above. Condition at Discharge: Guarded Final Diagnosis/Problems List Acute on chronic respiratory failure COPD with possible exacerbation , with pneumonitis Community-acquired pneumonia, Gram-negative Gram-positive possible Sepsis, due to pneumonia Leukocytosis Urinary tract infection, acute complicated Thrombocytosis, likely reactive to sepsis Discharge Disposition: Home Discharge Instruct/Medications Scheduled Albuterol Sulfate (Ventolin), 2.5 MG NEB Q6H Azithromycin (Azithromycin), 1 TAB PO DAILY Fluticasone-Salmeterol (Advair Diskus 250/50), 1 PUFF INH BID Furosemide (Lasix), 1 TAB PO DAILY Prednisone (Prednisone), 40 MG PO QAM Prednisone (Prednisone), 20 MG PO DAILY Valsartan (Diovan), 1 TAB PO DAILY, (Reported) Zyvox (Zyvox Tablet), 600 MG PO BID Miscellaneous Medications Wdxepgsjrzk-Farasssrproi-Rkuho (Trelegy Ellipta 100-62.5-25 Mcg/INH), 1 AER IN, (Reported) Discharge Statement: "Patient was advised to return to the ER or call 911 if any headaches, dizziness, shortness of breath, chest pain, abdominal pain, bleeding, fevers, or worsening of medical condition. Patient was counseled about treatment plan, medications, possible side effects, patientverbalized understanding. All questions were answered to the best of my ability. This discharge took greater then 30 minutes in planning, reviewing documentation, counseling the patient, and discussing with other team members." ASSESSMENT ASSESSMENT Assessment Date of Service: Nov 20, 2025 Billing Provider: VIRGEN MATIAS MD Common Visit Codes: [id number] DISCH DAY >30min VIRGEN MATIAS MD Nov 20, 2025 13:47
== END 2025-11-20 16:10 | disposition home or self-care (01) | DRG 871 ==
LOC: ER 15:23 → OVERFLOW 19:59 → WEST WING 20:00
PROVIDERS: ADMIT Student in an Organized Health Care Education/Training Program; ATTEND Student in an Organized Health Care Education/Training Program
DX: A41.50 Gram-negative sepsis, unspecified (principal); J15.69 Pneumonia due to other Gram-negative bacteria; J96.21 Acute and chronic respiratory failure with hypoxia; J15.9 Unspecified bacterial pneumonia; J44.0 Chronic obstructive pulmonary disease with (acute) lower respiratory infection; N39.0 Urinary tract infection, site not specified; I10 Essential (primary) hypertension; J44.1 Chronic obstructive pulmonary disease with (acute) exacerbation; Z20.822 Contact with and (suspected) exposure to COVID-19; J98.4 Other disorders of lung; D75.839 Thrombocytosis, unspecified; Z90.710 Acquired absence of both cervix and uterus; Z88.5 Allergy status to narcotic agent; Z83.3 Family history of diabetes mellitus
CPT/HCPCS: 36415; 71045; 80048; 80053; 81001; 83605; 83880; 85025; 86480; 87040; 87070; 87077; 87186; 87205; 87426; 87804; 93005; 94640; G0378